=== PATIENT | female | born 1960 | race Caucasian/White ===

== ENCOUNTER 2019-04-10 14:14 | Inpatient (IN) | payer MEDICARE, OTHER ==
[~2019-04-10] VITALS: Ht 160 cm; Wt 66.6 kg
[2019-04-10 16:03] LABS: CALCIUM 8.3 mg/dL (8.5-10.1); GFR 57.4; POTASSIUM 3.9 mmol/L (3.5-5.1)
[2019-04-10 16:04] LABS: BASO % 1 % (0-3); EOS # 0.2 x10^3/uL (0.0-0.7); EOS % 4 % (0-3); HEMATOCRIT 43.3 % (36.0-47.0); HEMOGLOBIN 14.5 g/dL (12.0-15.5); LYMPH # 1.8 x10^3/uL (1.0-4.8); LYMPH % 36 % (24-48); MEAN CORPUSCULAR HEMOGLOBIN 32 pg (25-35); MEAN CORPUSCULAR HGB CONC 34 g/dL (31-37); MEAN CORPUSCULAR VOLUME 96 fL (79-100); MONO # 0.4 x10^3/uL (0.0-1.1); MONO % 9 % (0-9); NEUT # 2.6 x10^3uL (1.8-7.7); NEUT % 51 % (31-73); PLATELET COUNT 181 x10^3/uL (140-400); RED BLOOD COUNT 4.51 x10^6/uL (3.50-5.40); RED CELL DISTRIBUTION WIDTH 12.8 % (11.5-14.5); WHITE BLOOD COUNT 5.1 x10^3/uL (4.0-11.0)
[2019-04-10 16:06] LABS: ALBUMIN 3.2 g/dL (3.4-5.0); ALBUMIN/GLOBULIN RATIO 1.1 (1.0-1.7); MAGNESIUM 2.2 mg/dL (1.8-2.4); TOTAL BILIRUBIN 0.3 mg/dL (0.2-1.0)
--- NOTE | 2019-04-10 16:08 | EKG ---
[address] [address] Test Date: 2019-04-10 Test Time: 14:30:16 Pat Name: QIANA CUNNINGHAM Department: Room: Gender: F Academic Services Coordinator: : 1960 Requested By: PETE SONG Order Number: [id number] Reading MD: Measurements Intervals [place] Rate: 86 P: 40 CA: 158 QRS: 4 QRSD: 78 T: 52 QT: 382 QTc: 460 Interpretive Statements SINUS RHYTHM NORMAL ECG RI6.01 No previous ECG available for comparison
[2019-04-10] MEDS ORDERED: LORazepam 1 MG TABLET PO ONE (16:30)
[2019-04-10 16:54] LABS: BILIRUBIN,URINE NEG (NEG); CLARITY,URINE CLEAR; COLOR,URINE YELLOW; GLUCOSE,URINE NEG (NEG); NITRITE,URINE NEG (NEG)
[2019-04-10 16:55] LABS: BACTERIA,URINE FEW /HPF (0-FEW)
[2019-04-10] MEDS ORDERED: IBUP400T18 PO (16:57)
[2019-04-10] MEDS ORDERED: BENZ0.5T32 PO (16:57)
[2019-04-10] MEDS ORDERED: ESCITALOPRAM OX20 MG PO (16:57)
[2019-04-10] MEDS ORDERED: DEXT1CAP PO (16:57)
[2019-04-10] MEDS ORDERED: DICL100G28 TP (16:57)
[2019-04-10] MEDS ORDERED: TRAM50TA PO ×2 (16:57)
[2019-04-10] MEDS ORDERED: ACET500T68 PO (16:57)
[2019-04-10] MEDS ORDERED: LOPE2TAB27 PO (16:57)
[2019-04-10] MEDS ORDERED: DIVA500T2 PO (16:57)
[2019-04-10] MEDS ORDERED: FURO20TA3 PO (16:57)
[2019-04-10] MEDS ORDERED: POLY15DR27 EACHEYE (16:57)
[2019-04-10] MEDS ORDERED: GABA-586 PO (16:57)
[2019-04-10] MEDS ORDERED: TROL35.4 TP (16:57)
[2019-04-10] MEDS ORDERED: ASPI1TAB31 PO (16:57)
[2019-04-10] MEDS ORDERED: LEVE500T56 PO (16:57)
[2019-04-10] MEDS ORDERED: POLY17PO5 PO (16:57)
[2019-04-10] MEDS ORDERED: CHOL200027 PO (16:57)
[2019-04-10] MEDS ORDERED: HYDR25TA PO (16:57)
[2019-04-10] MEDS ORDERED: LAMO200T6 PO (16:57)
[2019-04-10] MEDS ORDERED: BACL10TA PO (16:57)
[2019-04-10] MEDS ORDERED: LORA-254 PO ×2 (16:57)
[2019-04-10] MEDS ORDERED: ONDA-84 PO (16:57)
[2019-04-10] MEDS ORDERED: BISA10SU4 RC (16:57)
[2019-04-10] MEDS ORDERED: MELA10TA PO (16:57)
[2019-04-10] MEDS ORDERED: LEVO50TA5 PO (16:57)
[2019-04-10] MEDS ORDERED: OMEG-152 PO (16:57)
--- NOTE | 2019-04-10 17:07 | PHYS DOC ---
Past History Past Medical History: CAD, CVA, GERD, Hypertension, Hypothyroid, Hypotension, Migraines, Other Additional Past Medical Histor: hemiplegia, sleep apnea, MDD, tremor, Past Surgical History: No Surgical History Alcohol Use: None Drug Use: None Adult General Chief Complaint Chief Complaint: MEDICAL CLEARANCE HPI HPI Patient is a 58 year old F who presents with medical screening for geriatric psych admission. We so denies any current symptoms. She has no urinary symptoms. She has no respiratory symptoms. She has no other associated symptoms. Review of Systems Review of Systems Constitutional: Denies fever or chills [] Eyes: Denies change in visual acuity, redness, or eye pain [] HENT: Denies nasal congestion or sore throat [] Respiratory: Denies cough or shortness of breath [] Cardiovascular: No additional information not addressed in HPI [] GI: Denies abdominal pain, nausea, vomiting, bloody stools or diarrhea [] : Denies dysuria or hematuria [] Musculoskeletal: Denies back pain or joint pain [] Integument: Denies rash or skin lesions [] Neurologic: Denies headache, focal weakness or sensory changes [] Endocrine: Denies polyuria or polydipsia [] All other systems were reviewed and found to be within normal limits, except as documented in this note. Family History Family History No pertinent family medical history was reported Current Medications Current Medications Current Medications Medications (Trade) Dose Ordered Sig/Malika Start Time Stop Time Status Last Admin Dose Admin Lorazepam (Ativan) 0.5 mg 1X ONCE 04/10/19 16:30 04/10/19 16:31 DC 04/10/19 16:29 0.5 MG Allergies Allergies Allergies Coded Allergies Type Severity Reaction Last Updated Verified codeine Allergy Unknown 04/10/19 Yes hydrocodone Allergy Unknown 04/10/19 Yes morphine Allergy Unknown 04/10/19 Yes Physical Exam Physical Exam Constitutional: Well developed, well nourished, no acute distress, non-toxic appearance. [] HENT: Normocephalic, atraumatic, Eyes: PERRLA, EOMI, conjunctiva normal, no discharge. [] Neck: Normal range of motion, no tenderness, supple, no stridor. [] Cardiovascular:Heart rate regular rhythm, no murmur [] Lungs & Thorax: Bilateral breath sounds clear to auscultation [] Abdomen: Bowel sounds normal, soft, no tenderness, no masses, no pulsatile masses. [] Skin: Warm, dry, no erythema, no rash. [] Back: No tenderness, no CVA tenderness. [] Extremities: No tenderness, no cyanosis, no clubbing, ROM intact, no edema. [] Neurologic: Alert and oriented to self only. Normal motor function, normal sens ory function, no focal deficits noted. [] Psychologic: Affect normal Current Patient Data Vital Signs Vital Signs Date Time Temp Pulse Resp B/P (MAP) Pulse Ox O2 Delivery O2 Flow Rate FiO2 04/10/19 15:47 78 21 117/78 (91) 94 Room Air 04/10/19 14:27 97.9 Lab Results Laboratory Tests Test 04/10/19 15:34 04/10/19 15:56 White Blood Count 5.1 x10^3/uL (4.0-11.0) Red Blood Count 4.51 x10^6/uL (3.50-5.40) Hemoglobin 14.5 g/dL (12.0-15.5) Hematocrit 43.3 % (36.0-47.0) Mean Corpuscular Volume 96 fL (79-100) Mean Corpuscular Hemoglobin 32 pg (25-35) Mean Corpuscular Hemoglobin Concent 34 g/dL (31-37) Red Cell Distribution Width 12.8 % (11.5-14.5) Platelet Count 181 x10^3/uL (140-400) Neutrophils (%) (Auto) 51 % (31-73) Lymphocytes (%) (Auto) 36 % (24-48) Monocytes (%) (Auto) 9 % (0-9) Eosinophils (%) (Auto) 4 % (0-3) H Basophils (%) (Auto) 1 % (0-3) Neutrophils # (Auto) 2.6 x10^3uL (1.8-7.7) Lymphocytes # (Auto) 1.8 x10^3/uL (1.0-4.8) Monocytes # (Auto) 0.4 x10^3/uL (0.0-1.1) Eosinophils # (Auto) 0.2 x10^3/uL (0.0-0.7) Basophils # (Auto) 0.0 x10^3/uL (0.0-0.2) Sodium Level 145 mmol/L (136-145) Potassium Level 3.9 mmol/L (3.5-5.1) Chloride Level 109 mmol/L (98-107) H Carbon Dioxide Level 27 mmol/L (21-32) Anion Gap 9 (6-14) Blood Urea Nitrogen 22 mg/dL (7-20) H Creatinine 1.0 mg/dL (0.6-1.0) Estimated GFR (Cockcroft-Gault) 57.4 BUN/Creatinine Ratio 22 (6-20) H Glucose Level 105 mg/dL (70-99) H Calcium Level 8.3 mg/dL (8.5-10.1) L Magnesium Level 2.2 mg/dL (1.8-2.4) Total Bilirubin 0.3 mg/dL (0.2-1.0) Aspartate Amino Transferase (AST) 21 U/L (15-37) Alanine Aminotransferase (ALT) 33 U/L (14-59) Alkaline Phosphatase 61 U/L (46-116) Total Protein 6.0 g/dL (6.4-8.2) L Albumin 3.2 g/dL (3.4-5.0) L Albumin/Globulin Ratio 1.1 (1.0-1.7) Urine Collection Type Unknown Urine Color Yellow Urine Clarity Clear Urine pH 7.0 Urine Specific [place] 1.025 Urine Protein Neg (NEG-TRACE) Urine Glucose (UA) Neg mg/dL (NEG) Urine Ketones (Stick) Neg mg/dL (NEG) Urine Blood Neg (NEG) Urine Nitrite Neg (NEG) Urine Bilirubin Neg (NEG) Urine Urobilinogen Dipstick 1.0 mg/dL (0.2 mg/dL) Urine Leukocyte Esterase Neg (NEG) Urine RBC 1-2 /HPF (0-2) Urine WBC 1-4 /HPF (0-4) Urine Squamous Epithelial Cells None /LPF Urine Transitional Epithelial Cells Occ /LPF Urine Bacteria Few /HPF (0-FEW) Urine Mucus Slight /LPF EKG EKG Normal sinus rhythm Radiology/Procedures Radiology/Procedures [] Course & Med Decision Making Course & Med Decision Making Pertinent Labs and Imaging studies reviewed. (See chart for details) [] Dragon Disclaimer Dragon Disclaimer This electronic medical record was generated, in whole or in part, using a voice recognition dictation system. Departure Departure: Impression: Primary Impression: Encounter for medical screening examination Disposition: ADMITTED INPATIENT Condition: STABLE Referrals: VEENA MOURA M[facility], MD (PCP) PETE SONG MD Apr 10, 2019 17:07
[2019-04-10 18:02] VITALS: BP 123/81
[2019-04-10] MEDS ORDERED: BISACODYL 10 MG SUPP.RECT RC PRN (18:15)
[2019-04-10] MEDS ORDERED: POLYVINYL ALCOHOL 1.4% OPHTH SOLUTION 15ML BOTTLE. OU PRN (18:15)
[2019-04-10] MEDS ORDERED: POLYETHYLENE GLYCOL 3350 17 GM PACKET. PO PRN (18:15)
[2019-04-10] MEDS ORDERED: MAG HYDROX/AL HYDROX/SIMETH 30 ML ORAL.SUSP PO PRN (18:30)
[2019-04-10] MEDS ORDERED: METHYL SALICYLATE/MENTHOL TOPICAL OINTMENT 57GM TUBE. TP PRN (18:30)
[2019-04-10] MEDS ORDERED: ACETAMINOPHEN 325 MG TABLET PO PRN (18:30)
[2019-04-10] MEDS ORDERED: TROLAMINE SALICYLATE 10% TOPICAL CREAM 85GM JAR. TP PRN (18:45)
[2019-04-10] MEDS ORDERED: ONDANSETRON ODT 4 MG TAB.RAPDIS PO PRN (18:45)
[2019-04-10] MEDS ORDERED: LOPERAMIDE 2 MG CAPSULE PO PRN (18:45)
--- NOTE | 2019-04-10 20:54 | PDOC ---
Exam Note: Cb Note: Please also refer to the separate dictated note~for this date of service dictated separately.~Patient seen individually. Discussed the patient with Nursing staff reviewed the chart.~Reviewed interim history and current functioning. Reviewed vital signs,~Labs/ Radiology~and current medications noted below. Continue current treatment with the changes noted in the dictated addendum note Assessment: Vital Signs/I&O: Vital Signs Date Time Temp Pulse Resp B/P (MAP) Pulse Ox O2 Delivery O2 Flow Rate FiO2 04/10/19 18:02 97.2 76 18 123/81 (95) 96 Room Air Labs: Laboratory Tests Test 04/10/19 15:34 04/10/19 15:56 White Blood Count 5.1 x10^3/uL (4.0-11.0) Red Blood Count 4.51 x10^6/uL (3.50-5.40) Hemoglobin 14.5 g/dL (12.0-15.5) Hematocrit 43.3 % (36.0-47.0) Mean Corpuscular Volume 96 fL (79-100) Mean Corpuscular Hemoglobin 32 pg (25-35) Mean Corpuscular Hemoglobin Concent 34 g/dL (31-37) Red Cell Distribution Width 12.8 % (11.5-14.5) Platelet Count 181 x10^3/uL (140-400) Neutrophils (%) (Auto) 51 % (31-73) Lymphocytes (%) (Auto) 36 % (24-48) Monocytes (%) (Auto) 9 % (0-9) Eosinophils (%) (Auto) 4 % (0-3) H Basophils (%) (Auto) 1 % (0-3) Neutrophils # (Auto) 2.6 x10^3uL (1.8-7.7) Lymphocytes # (Auto) 1.8 x10^3/uL (1.0-4.8) Monocytes # (Auto) 0.4 x10^3/uL (0.0-1.1) Eosinophils # (Auto) 0.2 x10^3/uL (0.0-0.7) Basophils # (Auto) 0.0 x10^3/uL (0.0-0.2) Sodium Level 145 mmol/L (136-145) Potassium Level 3.9 mmol/L (3.5-5.1) Chloride Level 109 mmol/L (98-107) H Carbon Dioxide Level 27 mmol/L (21-32) Anion Gap 9 (6-14) Blood Urea Nitrogen 22 mg/dL (7-20) H Creatinine 1.0 mg/dL (0.6-1.0) Estimated GFR (Cockcroft-Gault) 57.4 BUN/Creatinine Ratio 22 (6-20) H Glucose Level 105 mg/dL (70-99) H Calcium Level 8.3 mg/dL (8.5-10.1) L Magnesium Level 2.2 mg/dL (1.8-2.4) Total Bilirubin 0.3 mg/dL (0.2-1.0) Aspartate Amino Transferase (AST) 21 U/L (15-37) Alanine Aminotransferase (ALT) 33 U/L (14-59) Alkaline Phosphatase 61 U/L (46-116) Total Protein 6.0 g/dL (6.4-8.2) L Albumin 3.2 g/dL (3.4-5.0) L Albumin/Globulin Ratio 1.1 (1.0-1.7) Urine Collection Type Unknown Urine Color Yellow Urine Clarity Clear Urine pH 7.0 Urine Specific [place] 1.025 Urine Protein Neg (NEG-TRACE) Urine Glucose (UA) Neg mg/dL (NEG) Urine Ketones (Stick) Neg mg/dL (NEG) Urine Blood Neg (NEG) Urine Nitrite Neg (NEG) Urine Bilirubin Neg (NEG) Urine Urobilinogen Dipstick 1.0 mg/dL (0.2 mg/dL) Urine Leukocyte Esterase Neg (NEG) Urine RBC 1-2 /HPF (0-2) Urine WBC 1-4 /HPF (0-4) Urine Squamous Epithelial Cells None /LPF Urine Transitional Epithelial Cells Occ /LPF Urine Bacteria Few /HPF (0-FEW) Urine Mucus Slight /LPF Current Medications: Meds: Current Medications Medications (Trade) Dose Ordered Sig/Malika Route PRN Reason Start Time Stop Time Status Last Admin Dose Admin Lorazepam (Ativan) 0.5 mg 1X ONCE PO 04/10/19 16:30 04/10/19 16:31 DC 04/10/19 16:29 I have reviewed the current psychotropics carefully including drug interactions. Risk benefit ratio favors no change other than as noted in my dictated progress note. Diagnosis: Problems: (1) MDD (major depressive disorder) (2) Anxiety disorder (3) Major depressive disorder, recurrent episode (4) Impulse control disorder (5) Major neurocognitive disorder, due to vascular disease, with behavioral disturbance, mild NORBERTO RICHTER MD Apr 10, 2019 20:54
[2019-04-10] MEDS: traMADol 50 MG TABLET PO SCH (21:19)
[2019-04-10] MEDS: levETIRAcetam 500 MG TABLET PO SCH (21:19)
[2019-04-10] MEDS: MELATONIN 3 MG TABLET PO SCH (21:19)
[2019-04-10] MEDS: BENZTROPINE MESYLATE 0.5 MG TABLET PO SCH (21:19)
[2019-04-10] MEDS: DEXTROMETHORPHAN/QUINIDINE 20/10MG CAPSULE. PO SCH (21:19)
[2019-04-10] MEDS: GABAPENTIN 300 MG CAPSULE. PO SCH (21:19)
[2019-04-10] MEDS: hydrOXYzine HCL 25 MG TABLET PO SCH (21:19)
[2019-04-10] MEDS: DIVALPROEX SODIUM 250 MG TABLET.DR. PO SCH (21:20)
[2019-04-10] MEDS: DICLOFENAC SODIUM 1% TOPICAL GEL 100GM TUBE. TP SCH (21:20)
[2019-04-11 05:00] VITALS: BP 120/75
[2019-04-11] MEDS: DICLOFENAC SODIUM 1% TOPICAL GEL 100GM TUBE. TP SCH ×3 (06:00→21:30)
[2019-04-11] MEDS: traMADol 50 MG TABLET PO PRN ×3 (06:11→15:43)
[2019-04-11 07:11] LABS: VAL ACID 52 mcg/mL (50-100)
[2019-04-11] MEDS: CITALOPRAM 20 MG TABLET. PO SCH (08:45)
[2019-04-11] MEDS: lamoTRIgine 100 MG TABLET. PO SCH (08:45)
[2019-04-11] MEDS: OMEGA-3 FATTY ACIDS/FISH OIL 1,000 MG CAPSULE. PO SCH (08:45)
[2019-04-11] MEDS: DEXTROMETHORPHAN/QUINIDINE 20/10MG CAPSULE. PO SCH ×2 (08:45→21:24)
[2019-04-11] MEDS: CHOLECALCIFEROL (VITAMIN D3) 1,000 UNIT TABLET PO SCH (08:45)
[2019-04-11] MEDS: FUROSEMIDE 20 MG TABLET PO SCH (08:46)
[2019-04-11] MEDS: BENZTROPINE MESYLATE 0.5 MG TABLET PO SCH ×2 (08:46→21:24)
[2019-04-11] MEDS: hydrOXYzine HCL 25 MG TABLET PO SCH ×3 (08:46→21:24)
[2019-04-11] MEDS: LEVOTHYROXINE 50 MCG TABLET PO SCH (08:46)
[2019-04-11] MEDS: GABAPENTIN 300 MG CAPSULE. PO SCH ×3 (08:46→21:24)
[2019-04-11] MEDS: levETIRAcetam 500 MG TABLET PO SCH ×2 (08:46→21:24)
[2019-04-11] MEDS: DIVALPROEX SODIUM 250 MG TABLET.DR. PO SCH ×3 (08:46→21:24)
[2019-04-11] MEDS: LORazepam 0.5 MG TABLET PO SCH (08:47)
[2019-04-11] MEDS: traMADol 50 MG TABLET PO SCH ×2 (08:47→21:24)
[2019-04-11 13:59] LABS: THYROID STIM HORMONE (TSH) 0.781 uIU/mL (0.358-3.740)
[2019-04-11 15:51] VITALS: BP 126/84
[2019-04-11 17:07] LABS: THYROXINE 7.9 ug/dL (4.5-12.0)
--- NOTE | 2019-04-11 17:31 | HP ---
ADMIT DATE: 04/10/2019 ADMISSION HISTORY/EVALUATION This late entry, 04/10/2019, covers the elements not covered in my initial note. I met with the patient evening of 04/10/2019 and previously discussed with Cyndi Sheehan, care coordinator and nursing staff. IDENTIFYING DATA: The patient is a 58-year-old female referred to us from [facility] by Dr. Randle, her primary care physician and psychiatrist, Dr. Hughes, on account of worsening symptoms of depression, having failed the outpatient psychiatric interventions. The patient had been yelling out at the facility, striking out at peers and staff with worsening anxiety, agitation, irritability, suicidal ideation, and wanting to end her life. She was looking for pets and people, restless, constantly moving her wheelchair. She had failed the outpatient psychiatric interventions with Dr. Hughes. CHIEF COMPLAINT: "I live in [place] with my aunt, Graciela, yes, I have been depressed. I get angry." HISTORY OF PRESENT ILLNESS: The patient has a history of CVA and some short-term memory deficits. She has been increasingly depressed, angry, irritable, and labile in her mood. She has had sleep and appetite changes and has a pseudobulbar affect and marked impulse control problems. Agitation and disruptive behaviors are noted above. No clear history of bipolar disorder. PAST PSYCHIATRIC HISTORY: As above. PAST MEDICAL HISTORY: She is status post cerebrovascular accident, left sided hemiplegia and hemiparesis, cerebral infarction, sleep apnea, hypothyroidism, hypernatremia, pseudobulbar affect, Parkinson's disease, tremor, seizure disorder, migraines and history of encephalopathy, hypertension, GERD, somnolence, and fatigue. CODE STATUS: DNR. ALLERGIES: CODEINE, HYDROCODONE, and MORPHINE. DIET: Regular. AMBULATES: Wheelchair, 1-person assist. CURRENT PSYCHOTROPICS: Ativan 0.5 mg q. 8 hours p.r.n., Cogentin 0.5 mg b.i.d., Depakote ER 250 mg t.i.d., Lexapro 20 mg a day, Neurontin 300 mg 3 times a day, hydroxyzine 25 mg t.i.d., Keppra 500 mg b.i.d., lamotrigine 200 mg daily, melatonin 10 mg at bedtime, and Nuedexta 20/10 mg b.i.d. FAMILY HISTORY: Noncontributory. SOCIAL HISTORY: No history of alcohol, drug abuse, physical, sexual, or elder abuse history is noted. She is not known to be a perpetrator. REACTION TO HOSPITALIZATION: The patient accepting of it. ASSETS: Supportive, living at the residential. MENTAL STATUS EXAMINATION: The patient was seen individually evening of 04/10/2019. She is oriented to herself, unaware of the year, and felt the president was president Romulo. She talked about having worked in [employer] in the past. Attention span is short. Language function is intact. Mood is depressed and anxious. The affect is mood congruent, quite distractible, and impulsive. No active suicidal or homicidal ideation. LABORATORY DATA: Reviewed. IMPRESSION: Major depressive disorder, recurrent, severe; anxiety disorder, unspecified; impulse control disorder, unspecified; and major neurocognitive disorder, possibly vascular early with depression and delusions. The rest as above. PLAN: Admit to Ger[facility]iat[facility] Unit at [facility]. I will see the patient individually from a psychiatric standpoint. Medical followup with Dr. Arango. Continue the patient on her current psychotropics. Observe baseline and then adjust as clinically indicated. May consider augmenting the Lexapro with Seroquel additionally as a mood stabilizer. Check a valproic acid level and adjust Depakote to reach therapeutic level. Estimated length of stay is 10-12 days. DISPOSITION: Plans back to residential when stable. NORBERTO RICHTER MD DR: ROCCO/nora JOB#: [id number] / [id number]
--- NOTE | 2019-04-11 20:48 | PDOC ---
Exam Note: Cb Note: Please also refer to the separate dictated note~for this date of service dictated separately.~Patient seen individually. Discussed the patient with Nursing staff reviewed the chart.~Reviewed interim history and current functioning. Reviewed vital signs,~Labs/ Radiology~and current medications noted below. Continue current treatment with the changes noted in the dictated addendum note Assessment: Vital Signs/I&O: Vital Signs Date Time Temp Pulse Resp B/P (MAP) Pulse Ox O2 Delivery O2 Flow Rate FiO2 04/11/19 17:30 16 94 Room Air 04/11/19 15:51 98.8 96 126/84 (98) I & O 04/10/19 04/10/19 04/11/19 15:00 23:00 07:00 Intake Total 80 ml Balance 80 ml Labs: Laboratory Tests Test 04/11/19 06:33 Valproic Acid Level 52 mcg/mL (50-100) Valproic Acid Last Dose Date 04/10/19 Valproic Acid Last Dose Time 2100 Current Medications: Meds: Current Medications Medications (Trade) Dose Ordered Sig/Malika Route PRN Reason Start Time Stop Time Status Last Admin Dose Admin Benztropine Mesylate (Cogentin) 0.5 mg BID PO 04/10/19 21:00 04/11/19 08:46 Dextromethorphan/ Quinidine (Nuedexta 20-10 Mg Capsule) 1 cap BID PO 04/10/19 21:00 04/11/19 08:45 Diclofenac Sodium (Voltaren) 1 rodney Q8HRS TP 04/10/19 22:00 04/10/19 21:20 Furosemide (Lasix) 20 mg DAILY PO 04/11/19 09:00 04/11/19 08:46 Gabapentin (Neurontin) 300 mg TID PO 04/10/19 21:00 04/11/19 14:19 Hydroxyzine HCl (Atarax) 25 mg TID PO 04/10/19 21:00 04/11/19 14:20 Levetiracetam (Keppra) 500 mg BID PO 04/10/19 21:00 04/11/19 08:46 Levothyroxine Sodium (Synthroid) 50 mcg DAILYAC PO 04/11/19 07:30 04/11/19 08:46 Lorazepam (Ativan) 0.5 mg DAILY PO 04/11/19 09:00 04/11/19 08:47 Vitamin D (Vitamin D3) 2,000 unit DAILY PO 04/11/19 09:00 04/11/19 08:45 Divalproex Sodium (Depakote) 250 mg TID PO 04/10/19 21:00 04/11/19 14:20 Citalopram Hydrobromide (CeleXA) 40 mg DAILY PO 04/11/19 09:00 04/11/19 08:45 Lamotrigine (LaMICtal) 200 mg DAILY PO 04/11/19 09:00 04/11/19 08:45 Melatonin (Melatonin) 9 mg QHS PO 04/10/19 21:00 04/10/19 21:19 Fish Oil (Fish Oil) 1,000 mg DAILY PO 04/11/19 09:00 04/11/19 08:45 Tramadol HCl (Ultram) 50 mg BID PO 04/10/19 21:00 04/11/19 08:47 I have reviewed the current psychotropics carefully including drug interactions. Risk benefit ratio favors no change other than as noted in my dictated progress note. Diagnosis: Problems: (1) Encounter for medical screening examination (2) MDD (major depressive disorder) (3) Anxiety disorder (4) Major depressive disorder, recurrent episode (5) Impulse control disorder (6) Major neurocognitive disorder, due to vascular disease, with behavioral disturbance, mild NORBERTO RICHTER MD Apr 11, 2019 20:48
[2019-04-11] MEDS: MELATONIN 3 MG TABLET PO SCH (21:24)
[2019-04-12 00:06] LABS: HEMOGLOBIN A1C 5.3 % (4.8-5.6)
[2019-04-12] MEDS: traMADol 50 MG TABLET PO PRN (01:14)
--- NOTE | 2019-04-12 03:38 | CONS ---
DATE OF CONSULTATION: REASON FOR CONSULTATION: Medical management. HISTORY OF PRESENT ILLNESS: The patient is a 58-year-old female patient, a resident of [facility], who was [facility] on account of yelling out, striking out at peers and staff, increased anxiety, agitation, irritability. She also has suicidal ideation, looking for pets and people, restless and constantly moving her wheelchair, all this in the background of major depressive disorder. PAST MEDICAL HISTORY: Significant for left-sided hemiplegia secondary to right middle cerebral artery territory infarct. She is known to have hypothyroidism, hypernatremia, obstructive sleep apnea, Parkinson's disease, tremor, epilepsy, migraine, encephalopathy, metabolic encephalopathy, hypertension, hypotension, gastroesophageal reflux disease, restlessness, agitation, malaise and fatigue. PAST PSYCHIATRIC HISTORY: Significant for anxiety and major depressive disorder as well as pseudobulbar affect. PAST SURGICAL HISTORY: Unobtainable, but she seemed to have what seemed to be tracheostomy tube placement scar. ALLERGIES: SHE IS ALLERGIC TO CODEINE, HYDROCODONE AND MORPHINE. MEDICATIONS: She is currently on following medications: She is on baclofen 10 mg 3 times a day, omega-3 fatty acid, fish oil 1000 mg daily. She is on Excedrin Migraine 2 tablets every 6 hours, diclofenac sodium 1 gram applied topically every 8 hours, ibuprofen 600 mg every 6 hours. She is on tramadol 50 mg every 6 hours and tramadol 50 mg twice a day scheduled, Tylenol 500 mg every 6 hours, divalproex sodium 250 mg 3 times a day, gabapentin 300 mg 3 times a day. She is on lamotrigine 200 mg once a day, Keppra 500 mg twice a day, escitalopram oxalate 20 mg once a day, lorazepam 0.5 mg every 8 hours. She is also on lorazepam 0.5 mg daily, hydroxyzine 25 mg 3 times a day, benztropine mesylate 0.5 mg twice a day. She is on Nuedexta 20/10 one capsule twice a day, furosemide 20 mg once a day, artificial tears 1 drop to both eyes every 8 hours, loperamide 2 mg every 2 hours, bisacodyl 10 mg rectally as needed, polyethylene glycol 17 grams daily and she is also on ondansetron 4 mg every 6 hours, levothyroxine sodium 50 mcg once a day. She is on trolamine for Aspercreme 10% applied topically every 12 hours, vitamin D3 1000 units p.o. daily, melatonin 10 mg p.o. at bedtime. REVIEW OF SYSTEMS: Unobtainable. FAMILY HISTORY: Unobtainable. SOCIAL HISTORY: She is a resident at [facility]. I could not get any more information from the patient. PHYSICAL EXAMINATION: GENERAL: When I examined her, she was sitting in her wheelchair, in no apparent distress. She was pale. No jaundice, cyanosis or thyromegaly. No jugular venous distention. No limb edema. VITAL SIGNS: Her heart rate was 62, blood pressure was 120/75, temperature 97, respiratory rate was 18 and oxygen saturation was 96%. HEAD, EYES, EARS, NOSE AND THROAT: Showed normocephalic, atraumatic. NECK: Supple. HEART: Showed normal first and second heart sounds. No gallop or murmur. CHEST: Shows central trachea, equal bilateral expansion and air entry, vesicular sounds. No crepitation or rhonchi. ABDOMEN: Distended, soft, nontender. NEUROLOGIC: She is awake, alert, very confused and also has incongruous affect. All her cranial nerves seem to be grossly intact. She has marked muscle wasting of the right temporal muscle. She has fixed flexion contraction of the left upper extremity and extended fixed extension of her left lower extremity. She is mostly bedbound, wheelchair bound. LABORATORY DATA: Her white cell count was 5100, hemoglobin 14.5, hematocrit 43, MCV 96 and platelet count of 181,000. Serum sodium 145, potassium 3.9, chloride 109, bicarbonate 27, anion gap of 9, BUN 22, creatinine 1, estimated GFR was 57 mL per minute. Her glucose 105, calcium was 8.3, magnesium 2.2. Total bilirubin, AST, ALT, alkaline phosphatase were normal. Total protein 6, albumin was 3.2. Her urinalysis was essentially unremarkable and toxic screen showed the valproic acid to be 52 mcg/mL, which is well within therapeutic range. IMPRESSION: In summary, this is a 58-year-old female patient, a resident at [facility], who was admitted on account of yelling out, striking out at peers and staff, increased anxiety, agitation, irritability, suicidal ideation, looking for, pets and people, restless and constantly moving her wheelchair, all this on background of major depressive disorder. Medically, she definitely has what seemed to be right middle cerebral artery territory infarct with left sided hemiplegia with fixed flexion contraction of the left upper extremity and extended contracture of the left lower extremity. She is also known to have hypothyroidism, Parkinson disease, hypertension, gastroesophageal reflux disease. From a medical point of view, the patient seems to be overall stable. All her vital signs are within acceptable range. Her lab work is also all within acceptable range. Her urinalysis was essentially unremarkable. Tox screen showed that her valproic acid is well within therapeutic range. I will obviously follow all the lab works that are still pending at the time of this dictation and make any necessary recommendation. Thank you, Dr. Steele for allowing me to participate in the care of the patient. CHRISTOPHER BARFIELD MD DR: GUY/nora JOB#: [id number] / [id number]
[2019-04-12] MEDS: DICLOFENAC SODIUM 1% TOPICAL GEL 100GM TUBE. TP SCH ×4 (05:40→20:15)
[2019-04-12 06:24] VITALS: BP 102/67
[2019-04-12] MEDS: BENZTROPINE MESYLATE 0.5 MG TABLET PO SCH ×2 (08:13→20:15)
[2019-04-12] MEDS: CITALOPRAM 20 MG TABLET. PO SCH (08:13)
[2019-04-12] MEDS: CHOLECALCIFEROL (VITAMIN D3) 1,000 UNIT TABLET PO SCH (08:13)
[2019-04-12] MEDS: LEVOTHYROXINE 50 MCG TABLET PO SCH (08:14)
[2019-04-12] MEDS: LORazepam 0.5 MG TABLET PO SCH (08:14)
[2019-04-12] MEDS: traMADol 50 MG TABLET PO SCH ×2 (08:14→20:14)
[2019-04-12] MEDS: GABAPENTIN 300 MG CAPSULE. PO SCH ×3 (08:15→20:14)
[2019-04-12] MEDS: lamoTRIgine 100 MG TABLET. PO SCH (08:15)
[2019-04-12] MEDS: DIVALPROEX SODIUM 250 MG TABLET.DR. PO SCH ×3 (08:15→20:15)
[2019-04-12] MEDS: OMEGA-3 FATTY ACIDS/FISH OIL 1,000 MG CAPSULE. PO SCH (08:15)
[2019-04-12] MEDS: DEXTROMETHORPHAN/QUINIDINE 20/10MG CAPSULE. PO SCH ×2 (08:15→20:14)
[2019-04-12] MEDS: FUROSEMIDE 20 MG TABLET PO SCH (08:16)
[2019-04-12] MEDS: levETIRAcetam 500 MG TABLET PO SCH ×2 (08:16→20:15)
[2019-04-12] MEDS: hydrOXYzine HCL 25 MG TABLET PO SCH ×3 (08:16→20:15)
[2019-04-12] MEDS ORDERED: QUEtiapine 25 MG TABLET. PO SCH (09:00)
[2019-04-12] MEDS: BACLOFEN 10 MG TABLET PO PRN (10:08)
[2019-04-12] MEDS: LORazepam 0.5 MG TABLET PO PRN (10:08)
[2019-04-12 16:10] VITALS: BP 130/84
[2019-04-12] MEDS: QUEtiapine 25 MG TABLET. PO SCH (17:33)
--- NOTE | 2019-04-12 19:38 | PN ---
DATE: 04/11/2019 PSYCHIATRIC PROGRESS NOTE This late entry 04/11/2019 covers elements not covered in my initial note. SUBJECTIVE: I met with the patient evening of 04/11/2019. Per LITO Ko, the patient slept 7-1/2 hours previous night. She is compliant with her morning medications, somewhat confused, believes she was in [place] or [place]. She is wanting to call her aunt and somewhat labile in her mood, worse so in the evening, anxious, restless, wandering. REVIEW OF SYSTEMS: Ambulation impaired, in wheelchair. No CV, , pulmonary, eye, ENT system symptoms on review. Reliability varies. MENTAL STATUS EXAM: Oriented to herself, situation at times. Insight, judgment, recent memory is impaired. Language function intact. Attention span short. Mood and affect remains labile, anxious. LABORATORY DATA: Reviewed. IMPRESSION: Major depressive disorder, recurrent with possible psychotic features; seizure disorder; anxiety disorder, unspecified; major neurocognitive disorder, probably vascular with delusion, depression. Rest unchanged. PLAN: Continue Lexapro 20 mg a day, start Seroquel 12.5 mg 9 a.m. and 5:00 p.m. Maintain Cogentin, Depakote, Keppra, gabapentin, Nuedexta, lamotrigine, melatonin, along with Ativan p.r.n. for now. Valproic acid level will be checked and adjusted to reach therapeutic level. Later, I did get the results of the valproic acid level and it is therapeutic at 52. NORBERTO RICHTER MD DR: ROCCO/nora JOB#: [id number] / [id number]
[2019-04-12] MEDS: MELATONIN 3 MG TABLET PO SCH (20:15)
--- NOTE | 2019-04-12 20:59 | PDOC ---
Exam Note: Bc Note: Please also refer to the separate dictated note~for this date of service dictated separately.~Patient seen individually. Discussed the patient with Nursing staff reviewed the chart.~Reviewed interim history and current functioning. Reviewed vital signs,~Labs/ Radiology~and current medications noted below. Continue current treatment with the changes noted in the dictated addendum note Assessment: Vital Signs/I&O: Vital Signs Date Time Temp Pulse Resp B/P (MAP) Pulse Ox O2 Delivery O2 Flow Rate FiO2 04/12/19 20:14 18 Room Air 04/12/19 16:10 98.7 93 130/84 (99) 96 I & O 04/11/19 04/11/19 04/12/19 15:00 23:00 07:00 Intake Total 1140 ml 720 ml Balance 1140 ml 720 ml Current Medications: Meds: Current Medications Medications (Trade) Dose Ordered Sig/Malika Route PRN Reason Start Time Stop Time Status Last Admin Dose Admin Quetiapine Fumarate (SEROquel) 12.5 mg 0900,1700 PO 04/12/19 09:00 04/12/19 11:00 DC 04/12/19 08:16 Quetiapine Fumarate (SEROquel) 25 mg 0900,1700 PO 04/12/19 17:00 04/12/19 17:33 I have reviewed the current psychotropics carefully including drug interactions. Risk benefit ratio favors no change other than as noted in my dictated progress note. Diagnosis: Problems: (1) Encounter for medical screening examination (2) MDD (major depressive disorder) (3) Anxiety disorder (4) Major depressive disorder, recurrent episode (5) Impulse control disorder (6) Major neurocognitive disorder, due to vascular disease, with behavioral disturbance, mild NORBERTO RICHTER MD Apr 12, 2019 20:59
[2019-04-13] MEDS: DICLOFENAC SODIUM 1% TOPICAL GEL 100GM TUBE. TP SCH ×3 (06:00→19:33)
[2019-04-13 06:11] VITALS: BP 103/72
[2019-04-13] MEDS: DIVALPROEX SODIUM 250 MG TABLET.DR. PO SCH ×3 (08:03→19:33)
[2019-04-13] MEDS: QUEtiapine 25 MG TABLET. PO SCH ×2 (08:03→17:43)
[2019-04-13] MEDS: LORazepam 0.5 MG TABLET PO SCH (08:03)
[2019-04-13] MEDS: DEXTROMETHORPHAN/QUINIDINE 20/10MG CAPSULE. PO SCH ×2 (08:04→19:32)
[2019-04-13] MEDS: CITALOPRAM 20 MG TABLET. PO SCH (08:04)
[2019-04-13] MEDS: LEVOTHYROXINE 50 MCG TABLET PO SCH (08:04)
[2019-04-13] MEDS: hydrOXYzine HCL 25 MG TABLET PO SCH ×3 (08:04→19:33)
[2019-04-13] MEDS: CHOLECALCIFEROL (VITAMIN D3) 1,000 UNIT TABLET PO SCH (08:04)
[2019-04-13] MEDS: levETIRAcetam 500 MG TABLET PO SCH ×2 (08:05→19:33)
[2019-04-13] MEDS: lamoTRIgine 100 MG TABLET. PO SCH (08:05)
[2019-04-13] MEDS: GABAPENTIN 300 MG CAPSULE. PO SCH ×3 (08:05→19:33)
[2019-04-13] MEDS: OMEGA-3 FATTY ACIDS/FISH OIL 1,000 MG CAPSULE. PO SCH (08:05)
[2019-04-13] MEDS: BENZTROPINE MESYLATE 0.5 MG TABLET PO SCH ×2 (08:05→19:33)
[2019-04-13] MEDS: FUROSEMIDE 20 MG TABLET PO SCH (08:05)
[2019-04-13] MEDS: traMADol 50 MG TABLET PO SCH ×2 (08:12→19:32)
[2019-04-13] MEDS: BACLOFEN 10 MG TABLET PO PRN (10:24)
[2019-04-13] MEDS: LORazepam 0.5 MG TABLET PO PRN ×2 (10:24→19:32)
--- NOTE | 2019-04-13 11:06 | TX PLAN ---
Interdisciplinary Tx Plan Admission Information Apr 10, 2019 at 17:41 Legal Status (on Admission): Voluntary, DPOA DPOA/Guardian Name: STEPHANIE Sanches Contact Other Contact Name: Anish Contreras Other Contact Verified Code Status: DNR Allergies: Coded Allergies: codeine (Verified Allergy, Unknown, 04/10/19) hydrocodone (Verified Allergy, Unknown, 04/10/19) morphine (Verified Allergy, Unknown, 04/10/19) Estimated Length of Stay: 10 Diagnoses Primary Diagnosis: MDD Reasons for Admission: Aggressive, Agitated, Anxiety/Panic, Suicidal ideation, Combative, Confusion/Disoriented, Poor impulse control Problem in Patient's Words: Per pt., "Well, I guess I threw all kinds of hell." "They didn't know what to do with me so they sent me here." Pt. went on to talk about some man she "really liked" but he is "". Pt. stated she "wouldn't leave him alone". "He's the one who kept getting mad." Pt. cousin shared pt. was "having outburst again", "screaming", "saying things like she was ", "calling out for her mom and dad", and talking about "harming herself". Problems Active Problems: Per pt. intake, pt. was yelling out, striking out at peers and staff, anxious, agitated, irrible, SI searching for pets and poeple who have never been at [facility], restless, and moving in wheelchair constantly. Inactive Problems: Pt. is compliant with medication and assessments. Pt Strengths/Limitations Ability for Howard: Poor Cognitive Functioning/Ability: Poor Communication Skills/Ability: Poor Financial Resources: Poor Insight/Judgement: Poor Intellectual Ability: Fair Physical Health: Poor Social Skills: Poor Stability in Family: Fair Verbal Skills: Poor Discharge Criteria Discharge Criteria: No need for close observ., Adequate arrangements @DC, Improved behavior, Improved mood/thought Preliminary Discharge Plan Preliminary DC Plan: Current Living Arrange. Special Precautions Special Precautions: Agitation/Assault, Suicide Risk Fall Risk: High Initial D/C Plan Pt. will return to her facility once stable. Identified Discharge Needs: Follow up with PCP. Currently Utilized Resources Currently Utilized Resources/P: PCP - Dr. Randle Psychiatrist - Dr. Hughes Identified Problems/Hx/Goals Objectives/Short-Term Goals Short Term Goals: Control abnormal behavior, Dec. Aggression, Dec. Anxiety/Panic, Dec. Outbursts, Medication Stabilization, Monitor Med Effects, No Suicidal/[place]. 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 Education: Pt. stated she graduated from high school. Per pt. cousin, "I believe she has a GED." Community Follow-up Community Provider/Family Inpu: Pt. lucilasin stated, "Well, I'm hoping it is medication related, and we can get her back close to her baseline." Treatment Plan Explained Patient/Director Investor Relations had this treatment plan explained to him/her as indicated by the signature below and has been given the opportunity to ask questions and make suggestions: Date: Patient/Director Investor Relations Signature: Patient/Director Investor Relations Decline: No Additional Comments Pt. cousinCherry, would like to be contacted from treatment team. DESIREE DAVALOS Apr 13, 2019 11:06
[2019-04-13 15:54] VITALS: BP 128/68
[2019-04-13] MEDS: MAGNESIUM HYDROXIDE 2,400 MG/30 ML ORAL.SUSP. PO PRN (17:43)
[2019-04-13] MEDS: MELATONIN 3 MG TABLET PO SCH (19:33)
[2019-04-13] MEDS: ASA/APAP/CAFFEINE 250/250/65MG TABLET. PO PRN (20:38)
--- NOTE | 2019-04-13 20:59 | PDOC ---
Exam Note: Cb Note: Please also refer to the separate dictated note~for this date of service dictated separately.~Patient seen individually. Discussed the patient with Nursing staff reviewed the chart.~Reviewed interim history and current functioning. Reviewed vital signs,~Labs/ Radiology~and current medications noted below. Continue current treatment with the changes noted in the dictated addendum note Assessment: Vital Signs/I&O: Vital Signs Date Time Temp Pulse Resp B/P (MAP) Pulse Ox O2 Delivery O2 Flow Rate FiO2 04/13/19 20:36 97 04/13/19 15:54 97.2 87 20 128/68 (88) 04/13/19 09:57 Room Air I & O 04/12/19 04/12/19 04/13/19 15:00 23:00 07:00 Intake Total 480 ml 200 ml 240 ml Balance 480 ml 200 ml 240 ml Current Medications: I have reviewed the current psychotropics carefully including drug interactions. Risk benefit ratio favors no change other than as noted in my dictated progress note. Diagnosis: Problems: (1) MDD (major depressive disorder) (2) Anxiety disorder (3) Major depressive disorder, recurrent episode (4) Impulse control disorder (5) Major neurocognitive disorder, due to vascular disease, with behavioral disturbance, mild NORBERTO RICHTER MD Apr 13, 2019 20:59
--- NOTE | 2019-04-13 22:47 | PN ---
DATE: 04/12/2019 This late entry 04/12/2019 covers elements not covered in my initial note. SUBJECTIVE: I met with the patient evening of 04/12/2019 and staffed at treatment team meeting with the entire team in the morning. We reviewed the patient's history at length. She was at [facility] in [place], which is a level 2 facility and later the [facility], who is her cousin, transferred her to [facility]. The fact that she was in level 2 was indicative of a primary psychiatric diagnosis, but the [facility] contests this. She has additionally been more confused, believes that she is at [employer], restless, helpless in the evening, slept 5 hours previous night. REVIEW OF SYSTEMS: Ambulation impaired, in wheelchair. No CV, , pulmonary, eye, ENT system symptoms on review. Reliability poor. MENTAL STATUS EXAM: Oriented to herself. Insight, judgment, recent and remote memory, attention, concentration, fund of knowledge poor, consistent with her diagnoses. IMPRESSION: Major depressive disorder with psychotic features versus major neurocognitive disorder, multifactorial; Alzheimer, vascular with delusion; depression. Rest unchanged. PLAN: Increase Seroquel from 12.5 mg b.i.d. to 25 mg b.i.d. Continue Ativan p.r.n., Cogentin 0.5 mg b.i.d., Depakote at current dosage level therapeutic at 52, Lexapro 20 mg a day, Neurontin along with hydroxyzine 25 mg t.i.d., melatonin, Nuedexta. Rest unchanged for now. NORBERTO RICHTER MD DR: ROCCO/nora JOB#: [id number] / [id number]
[2019-04-14] MEDS: LEVOTHYROXINE 50 MCG TABLET PO SCH (05:41)
[2019-04-14 05:51] VITALS: BP 107/73
[2019-04-14] MEDS: levETIRAcetam 500 MG TABLET PO SCH ×2 (08:16→20:03)
[2019-04-14] MEDS: CITALOPRAM 20 MG TABLET. PO SCH (08:16)
[2019-04-14] MEDS: hydrOXYzine HCL 25 MG TABLET PO SCH ×3 (08:16→20:03)
[2019-04-14] MEDS: DIVALPROEX SODIUM 250 MG TABLET.DR. PO SCH ×3 (08:16→20:03)
[2019-04-14] MEDS: BENZTROPINE MESYLATE 0.5 MG TABLET PO SCH ×2 (08:16→20:03)
[2019-04-14] MEDS: OMEGA-3 FATTY ACIDS/FISH OIL 1,000 MG CAPSULE. PO SCH (08:16)
[2019-04-14] MEDS: FUROSEMIDE 20 MG TABLET PO SCH (08:17)
[2019-04-14] MEDS: lamoTRIgine 100 MG TABLET. PO SCH (08:17)
[2019-04-14] MEDS: QUEtiapine 25 MG TABLET. PO SCH ×2 (08:18→17:10)
[2019-04-14] MEDS: DEXTROMETHORPHAN/QUINIDINE 20/10MG CAPSULE. PO SCH ×2 (08:18→20:02)
[2019-04-14] MEDS: LORazepam 0.5 MG TABLET PO SCH (08:18)
[2019-04-14] MEDS: traMADol 50 MG TABLET PO SCH ×2 (08:19→20:03)
[2019-04-14] MEDS: CHOLECALCIFEROL (VITAMIN D3) 1,000 UNIT TABLET PO SCH (08:19)
[2019-04-14] MEDS: GABAPENTIN 300 MG CAPSULE. PO SCH ×3 (08:19→20:03)
[2019-04-14] MEDS: DICLOFENAC SODIUM 1% TOPICAL GEL 100GM TUBE. TP SCH ×3 (10:52→20:03)
[2019-04-14] MEDS: LORazepam 0.5 MG TABLET PO PRN (11:17)
[2019-04-14 15:57] VITALS: BP 131/85
[2019-04-14] MEDS: MELATONIN 3 MG TABLET PO SCH (20:03)
--- NOTE | 2019-04-14 22:29 | PDOC ---
Exam Note: Cb Note: Please also refer to the separate dictated note~for this date of service dictated separately.~Patient seen individually. Discussed the patient with Nursing staff reviewed the chart.~Reviewed interim history and current functioning. Reviewed vital signs,~Labs/ Radiology~and current medications noted below. Continue current treatment with the changes noted in the dictated addendum note Assessment: Vital Signs/I&O: Vital Signs Date Time Temp Pulse Resp B/P (MAP) Pulse Ox O2 Delivery O2 Flow Rate FiO2 04/14/19 21:21 97 04/14/19 15:57 97.4 90 20 131/85 (100) 04/13/19 09:57 Room Air I & O 04/13/19 04/13/19 04/14/19 15:00 23:00 07:00 Intake Total 240 ml 480 ml Balance 240 ml 480 ml Current Medications: Meds: Current Medications Medications (Trade) Dose Ordered Sig/Malika Route PRN Reason Start Time Stop Time Status Last Admin Dose Admin Levothyroxine Sodium (Synthroid) 50 mcg DAILY06 PO 04/14/19 06:00 04/14/19 05:41 Diclofenac Sodium (Voltaren) 1 rodney TID TP 04/14/19 09:00 04/14/19 20:03 I have reviewed the current psychotropics carefully including drug interactions. Risk benefit ratio favors no change other than as noted in my dictated progress note. Diagnosis: Problems: (1) Encounter for medical screening examination (2) MDD (major depressive disorder) (3) Anxiety disorder (4) Major depressive disorder, recurrent episode (5) Impulse control disorder (6) Major neurocognitive disorder, due to vascular disease, with behavioral disturbance, mild NORBERTO RICHTER MD Apr 14, 2019 22:29
[2019-04-15 05:48] VITALS: BP 114/68
[2019-04-15] MEDS: LEVOTHYROXINE 50 MCG TABLET PO SCH (06:38)
[2019-04-15 07:50] LABS: BACTERIA,URINE MOD /HPF (0-FEW); BILIRUBIN,URINE NEG (NEG); CLARITY,URINE HAZY; COLOR,URINE YELLOW; GLUCOSE,URINE NEG (NEG); NITRITE,URINE NEG (NEG); SQUAMOUS EPITHELIAL CELL,UR FEW /LPF
[2019-04-15] MEDS: GABAPENTIN 300 MG CAPSULE. PO SCH ×3 (08:32→20:26)
[2019-04-15] MEDS: FUROSEMIDE 20 MG TABLET PO SCH (08:32)
[2019-04-15] MEDS: lamoTRIgine 100 MG TABLET. PO SCH (08:33)
[2019-04-15] MEDS: OMEGA-3 FATTY ACIDS/FISH OIL 1,000 MG CAPSULE. PO SCH (08:33)
[2019-04-15] MEDS: DIVALPROEX SODIUM 250 MG TABLET.DR. PO SCH ×3 (08:33→20:26)
[2019-04-15] MEDS: DEXTROMETHORPHAN/QUINIDINE 20/10MG CAPSULE. PO SCH ×2 (08:33→20:27)
[2019-04-15] MEDS: QUEtiapine 25 MG TABLET. PO SCH ×3 (08:33→17:27)
[2019-04-15] MEDS: hydrOXYzine HCL 25 MG TABLET PO SCH ×3 (08:34→20:26)
[2019-04-15] MEDS: traMADol 50 MG TABLET PO SCH ×2 (08:34→20:27)
[2019-04-15] MEDS: levETIRAcetam 500 MG TABLET PO SCH ×2 (08:34→20:26)
[2019-04-15] MEDS: CITALOPRAM 20 MG TABLET. PO SCH (08:34)
[2019-04-15] MEDS: CHOLECALCIFEROL (VITAMIN D3) 1,000 UNIT TABLET PO SCH (08:35)
[2019-04-15] MEDS: LORazepam 0.5 MG TABLET PO SCH (08:35)
[2019-04-15] MEDS: BENZTROPINE MESYLATE 0.5 MG TABLET PO SCH ×2 (08:40→20:26)
[2019-04-15] MEDS: DICLOFENAC SODIUM 1% TOPICAL GEL 100GM TUBE. TP SCH ×3 (12:36→20:27)
[2019-04-15 15:47] VITALS: BP 105/62
[2019-04-15] MEDS: ACETAMINOPHEN 500 MG TABLET PO PRN (17:58)
[2019-04-15] MEDS: MELATONIN 3 MG TABLET PO SCH (20:26)
--- NOTE | 2019-04-15 20:48 | PDOC ---
Exam Note: Cb Note: Please also refer to the separate dictated note~for this date of service dictated separately.~Patient seen individually. Discussed the patient with Nursing staff reviewed the chart.~Reviewed interim history and current functioning. Reviewed vital signs,~Labs/ Radiology~and current medications noted below. Continue current treatment with the changes noted in the dictated addendum note Assessment: Vital Signs/I&O: Vital Signs Date Time Temp Pulse Resp B/P (MAP) Pulse Ox O2 Delivery O2 Flow Rate FiO2 04/15/19 20:27 97 04/15/19 15:47 97.4 82 20 105/62 (76) 04/13/19 09:57 Room Air I & O 04/14/19 04/14/19 04/15/19 15:00 23:00 07:00 Intake Total 1020 ml 300 ml Balance 1020 ml 300 ml Labs: Laboratory Tests Test 04/15/19 06:32 Urine Collection Type U cath Urine Color Yellow Urine Clarity Hazy Urine pH 7.0 Urine Specific [place] 1.015 Urine Protein Neg (NEG-TRACE) Urine Glucose (UA) Neg mg/dL (NEG) Urine Ketones (Stick) Neg mg/dL (NEG) Urine Blood Neg (NEG) Urine Nitrite Neg (NEG) Urine Bilirubin Neg (NEG) Urine Urobilinogen Dipstick 1.0 mg/dL (0.2 mg/dL) Urine Leukocyte Esterase Small (NEG) Urine RBC 1-2 /HPF (0-2) Urine WBC 5-10 /HPF (0-4) Urine Squamous Epithelial Cells Few /LPF Urine Bacteria Mod /HPF (0-FEW) Current Medications: Meds: Current Medications Medications (Trade) Dose Ordered Sig/Malika Route PRN Reason Start Time Stop Time Status Last Admin Dose Admin Quetiapine Fumarate (SEROquel) 25 mg TID@0900,1300,1700 PO 04/15/19 09:00 04/15/19 17:27 I have reviewed the current psychotropics carefully including drug interactions. Risk benefit ratio favors no change other than as noted in my dictated progress note. Diagnosis: Problems: (1) MDD (major depressive disorder) (2) Anxiety disorder (3) Major depressive disorder, recurrent episode (4) Impulse control disorder (5) Major neurocognitive disorder, due to vascular disease, with behavioral disturbance, mild NEELAMNORBERTO BRYANT MD Apr 15, 2019 20:48
--- NOTE | 2019-04-16 00:18 | PN ---
DATE: 04/13/2019 PSYCHIATRIC PROGRESS NOTE. This late entry of 04/13/2019 covers the elements not covered in my initial note. SUBJECTIVE: I met with the patient in the evening of 04/13/2019. Per LITO Ko, the patient slept 8 hours previous night. She did well at breakfast time, but then later was somewhat agitated, refused toileting schedule, then did better for a while, then after lunch was again demanding to go to bed and then she "lost it". This was per nursing report. She was yelling, delusional, agitative, loud, labile in her mood. At 2:00 p.m., she received Depakote, hydroxyzine, gabapentin and then was a little calmer. REVIEW OF SYSTEMS: Ambulation impaired, in wheelchair. No CV, , pulmonary, eye, ENT system symptoms on review. Reliability poor. MENTAL STATUS EXAM: Oriented to herself. Insight, judgment, recent and remote memory, attention, concentration, fund of knowledge poor, consistent with her diagnoses. IMPRESSION: Major depressive disorder with psychotic features; major neurocognitive disorder, multifactorial with delusion, depression; impulse control disorder; anxiety disorder, unspecified. PLAN: Continue Depakote at current dosage, level therapeutic. Maintain Celexa, Cogentin, gabapentin, hydroxyzine, Keppra and lamotrigine along with melatonin, Nuedexta, Seroquel. We will consider increasing Seroquel for her ongoing mood lability. Will make further changes as clinically indicated. NORBERTO RICHTER MD DR: ROCCO/nora JOB#: [id number] / [id number]
[2019-04-16 05:59] VITALS: BP 133/91
[2019-04-16] MEDS: LEVOTHYROXINE 50 MCG TABLET PO SCH (06:07)
[2019-04-16] MEDS: DIVALPROEX SODIUM 250 MG TABLET.DR. PO SCH ×3 (08:30→20:08)
[2019-04-16] MEDS: DEXTROMETHORPHAN/QUINIDINE 20/10MG CAPSULE. PO SCH ×2 (08:30→20:08)
[2019-04-16] MEDS: CHOLECALCIFEROL (VITAMIN D3) 1,000 UNIT TABLET PO SCH (08:30)
[2019-04-16] MEDS: OMEGA-3 FATTY ACIDS/FISH OIL 1,000 MG CAPSULE. PO SCH (08:30)
[2019-04-16] MEDS: BENZTROPINE MESYLATE 0.5 MG TABLET PO SCH ×2 (08:30→20:08)
[2019-04-16] MEDS: CITALOPRAM 20 MG TABLET. PO SCH (08:30)
[2019-04-16] MEDS: lamoTRIgine 100 MG TABLET. PO SCH (08:30)
[2019-04-16] MEDS: hydrOXYzine HCL 25 MG TABLET PO SCH ×3 (08:30→20:08)
[2019-04-16] MEDS: QUEtiapine 25 MG TABLET. PO SCH ×3 (08:31→16:34)
[2019-04-16] MEDS: levETIRAcetam 500 MG TABLET PO SCH ×2 (08:31→20:08)
[2019-04-16] MEDS: LORazepam 0.5 MG TABLET PO SCH (08:31)
[2019-04-16] MEDS: FUROSEMIDE 20 MG TABLET PO SCH (08:31)
[2019-04-16] MEDS: DICLOFENAC SODIUM 1% TOPICAL GEL 100GM TUBE. TP SCH ×4 (08:31→20:08)
[2019-04-16] MEDS: traMADol 50 MG TABLET PO SCH ×2 (08:31→20:07)
[2019-04-16] MEDS: GABAPENTIN 300 MG CAPSULE. PO SCH ×3 (09:29→20:08)
[2019-04-16 15:13] VITALS: BP 109/75
[2019-04-16] MEDS: MELATONIN 3 MG TABLET PO SCH (20:08)
--- NOTE | 2019-04-16 21:33 | PDOC ---
Exam Note: Cb Note: Please also refer to the separate dictated note~for this date of service dictated separately.~Patient seen individually. Discussed the patient with Nursing staff reviewed the chart.~Reviewed interim history and current functioning. Reviewed vital signs,~Labs/ Radiology~and current medications noted below. Continue current treatment with the changes noted in the dictated addendum note Assessment: Vital Signs/I&O: Vital Signs Date Time Temp Pulse Resp B/P (MAP) Pulse Ox O2 Delivery O2 Flow Rate FiO2 04/16/19 21:31 99 04/16/19 15:13 98.7 80 18 109/75 (86) 04/13/19 09:57 Room Air I & O 04/15/19 04/15/19 04/16/19 15:00 23:00 07:00 Intake Total 240 ml 800 ml Balance 240 ml 800 ml Current Medications: I have reviewed the current psychotropics carefully including drug interactions. Risk benefit ratio favors no change other than as noted in my dictated progress note. Diagnosis: Problems: (1) MDD (major depressive disorder) (2) Anxiety disorder (3) Major depressive disorder, recurrent episode (4) Impulse control disorder (5) Major neurocognitive disorder, due to vascular disease, with behavioral disturbance, mild NORBERTO RICHTER MD Apr 16, 2019 21:33
--- NOTE | 2019-04-17 00:50 | PN ---
DATE: 04/15/2019 PSYCHIATRIC PROGRESS NOTE This late entry 04/15/2019 covers elements not covered in my initial note. SUBJECTIVE: I met with the patient in the evening. The patient slept 8 hours previous night per LITO Mauricio. She has had some retention of urine and had a straight cath, UA was sent for evaluation and has reflux to culture. She has been agitated intermittently and part of this could be contributed by the UTI, which is probably. At 7:00 p.m., increased agitation was very prominent. REVIEW OF SYSTEMS: Ambulation impaired. No CV, , pulmonary, eye, ENT system symptoms on review. Reliability poor. MENTAL STATUS EXAM: Oriented to herself. Insight, judgment, recent and remote memory, attention, concentration, fund of knowledge poor, consistent with her diagnosis mentioned in my initial note. PLAN: No change from initial note. Check UA for C and S, make further adjustments as indicated. MAN Sen RICHTER MD DR: ROCCO/nora JOB#: [id number] / [id number]
--- NOTE | 2019-04-17 00:52 | PN ---
DATE: 04/14/2019 PSYCHIATRIC PROGRESS NOTE This late entry 04/14/2019 covers elements not covered in my initial note. SUBJECTIVE: I met with the patient evening of 04/14/2019. The patient slept 6 hours previous night per LITO Mauricio. Reportedly, she had a "bad day." She has received several PRNs for her agitation, aggression, mood lability. She was kicking staff. Otherwise, disruptive, labile. REVIEW OF SYSTEMS: Ambulation impaired, in wheelchair. No CV, , pulmonary, eye system symptoms on review. MENTAL STATUS EXAM: Oriented to herself. Insight, judgment, recent and remote memory, attention, concentration, fund of knowledge poor, consistent with her diagnoses. IMPRESSION: Major depressive disorder with psychotic features; major neurocognitive disorder, multifactorial with delusion, depression. Rest unchanged. PLAN: Continue current psychotropics. Seroquel is increased to 25 mg 3 times a day from current twice a day. Maintain Zyprexa p.r.n. Valproic acid level therapeutic at 52. Rest unchanged for now. NORBERTO RICHTER MD DR: ROCCO/nora JOB#: [id number] / [id number]
[2019-04-17 05:33] VITALS: BP 132/92
[2019-04-17] MEDS: MAGNESIUM HYDROXIDE 2,400 MG/30 ML ORAL.SUSP. PO PRN (05:52)
[2019-04-17] MEDS: LEVOTHYROXINE 50 MCG TABLET PO SCH (05:52)
[2019-04-17] MEDS: traMADol 50 MG TABLET PO PRN (06:10)
[2019-04-17 07:08] LABS: BASO % 1 % (0-3); EOS # 0.2 x10^3/uL (0.0-0.7); EOS % 6 % (0-3); HEMATOCRIT 42.8 % (36.0-47.0); HEMOGLOBIN 14.2 g/dL (12.0-15.5); LYMPH # 1.5 x10^3/uL (1.0-4.8); LYMPH % 41 % (24-48); MEAN CORPUSCULAR HEMOGLOBIN 32 pg (25-35); MEAN CORPUSCULAR HGB CONC 33 g/dL (31-37); MEAN CORPUSCULAR VOLUME 96 fL (79-100); MONO # 0.3 x10^3/uL (0.0-1.1); MONO % 8 % (0-9); NEUT # 1.6 x10^3uL (1.8-7.7); NEUT % 45 % (31-73); PLATELET COUNT 159 x10^3/uL (140-400); RED BLOOD COUNT 4.47 x10^6/uL (3.50-5.40); RED CELL DISTRIBUTION WIDTH 13.1 % (11.5-14.5); WHITE BLOOD COUNT 3.6 x10^3/uL (4.0-11.0)
[2019-04-17 07:19] LABS: ALBUMIN 3.1 g/dL (3.4-5.0); ALBUMIN/GLOBULIN RATIO 1.2 (1.0-1.7); CALCIUM 8.8 mg/dL (8.5-10.1); CREATININE 0.9 mg/dL (0.6-1.0); GFR 64.8; TOTAL BILIRUBIN 0.3 mg/dL (0.2-1.0); TOTAL PROTEIN 5.7 g/dL (6.4-8.2)
[2019-04-17] MEDS: ASA/APAP/CAFFEINE 250/250/65MG TABLET. PO PRN ×2 (10:44→20:10)
[2019-04-17] MEDS: DICLOFENAC SODIUM 1% TOPICAL GEL 100GM TUBE. TP SCH ×4 (10:44→20:10)
[2019-04-17] MEDS: GABAPENTIN 300 MG CAPSULE. PO SCH ×3 (10:45→20:08)
[2019-04-17] MEDS: QUEtiapine 25 MG TABLET. PO SCH ×3 (10:45→17:39)
[2019-04-17] MEDS: lamoTRIgine 100 MG TABLET. PO SCH (10:45)
[2019-04-17] MEDS: CITALOPRAM 20 MG TABLET. PO SCH (10:46)
[2019-04-17] MEDS: OMEGA-3 FATTY ACIDS/FISH OIL 1,000 MG CAPSULE. PO SCH (10:46)
[2019-04-17] MEDS: DEXTROMETHORPHAN/QUINIDINE 20/10MG CAPSULE. PO SCH ×2 (10:46→20:08)
[2019-04-17] MEDS: CHOLECALCIFEROL (VITAMIN D3) 1,000 UNIT TABLET PO SCH (10:46)
[2019-04-17] MEDS: hydrOXYzine HCL 25 MG TABLET PO SCH ×3 (10:46→20:08)
[2019-04-17] MEDS: DIVALPROEX SODIUM 250 MG TABLET.DR. PO SCH ×3 (10:46→20:09)
[2019-04-17] MEDS: FUROSEMIDE 20 MG TABLET PO SCH (10:46)
[2019-04-17] MEDS: levETIRAcetam 500 MG TABLET PO SCH ×2 (10:47→20:09)
[2019-04-17] MEDS: LORazepam 0.5 MG TABLET PO SCH (10:47)
[2019-04-17] MEDS: traMADol 50 MG TABLET PO SCH ×2 (10:47→20:08)
[2019-04-17] MEDS: BENZTROPINE MESYLATE 0.5 MG TABLET PO SCH ×2 (10:47→20:09)
[2019-04-17 15:55] VITALS: BP 132/85
[2019-04-17] MEDS: MELATONIN 3 MG TABLET PO SCH (20:08)
--- NOTE | 2019-04-17 21:48 | PDOC ---
Exam Note: Cb Note: Please also refer to the separate dictated note~for this date of service dictated separately.~Patient seen individually. Discussed the patient with Nursing staff reviewed the chart.~Reviewed interim history and current functioning. Reviewed vital signs,~Labs/ Radiology~and current medications noted below. Continue current treatment with the changes noted in the dictated addendum note Assessment: Vital Signs/I&O: Vital Signs Date Time Temp Pulse Resp B/P (MAP) Pulse Ox O2 Delivery O2 Flow Rate FiO2 04/17/19 20:08 95 04/17/19 15:55 98.0 87 16 132/85 (101) 04/17/19 06:10 Room Air I & O 04/16/19 04/16/19 04/17/19 15:00 23:00 07:00 Intake Total 480 ml 440 ml Balance 480 ml 440 ml Labs: Laboratory Tests Test 04/17/19 06:57 White Blood Count 3.6 x10^3/uL (4.0-11.0) L Red Blood Count 4.47 x10^6/uL (3.50-5.40) Hemoglobin 14.2 g/dL (12.0-15.5) Hematocrit 42.8 % (36.0-47.0) Mean Corpuscular Volume 96 fL (79-100) Mean Corpuscular Hemoglobin 32 pg (25-35) Mean Corpuscular Hemoglobin Concent 33 g/dL (31-37) Red Cell Distribution Width 13.1 % (11.5-14.5) Platelet Count 159 x10^3/uL (140-400) Neutrophils (%) (Auto) 45 % (31-73) Lymphocytes (%) (Auto) 41 % (24-48) Monocytes (%) (Auto) 8 % (0-9) Eosinophils (%) (Auto) 6 % (0-3) H Basophils (%) (Auto) 1 % (0-3) Neutrophils # (Auto) 1.6 x10^3uL (1.8-7.7) L Lymphocytes # (Auto) 1.5 x10^3/uL (1.0-4.8) Monocytes # (Auto) 0.3 x10^3/uL (0.0-1.1) Eosinophils # (Auto) 0.2 x10^3/uL (0.0-0.7) Basophils # (Auto) 0.0 x10^3/uL (0.0-0.2) Sodium Level 148 mmol/L (136-145) H Potassium Level 4.0 mmol/L (3.5-5.1) Chloride Level 109 mmol/L (98-107) H Carbon Dioxide Level 30 mmol/L (21-32) Anion Gap 9 (6-14) Blood Urea Nitrogen 12 mg/dL (7-20) Creatinine 0.9 mg/dL (0.6-1.0) Estimated GFR (Cockcroft-Gault) 64.8 BUN/Creatinine Ratio 13 (6-20) Glucose Level 76 mg/dL (70-99) Calcium Level 8.8 mg/dL (8.5-10.1) Total Bilirubin 0.3 mg/dL (0.2-1.0) Aspartate Amino Transferase (AST) 15 U/L (15-37) Alanine Aminotransferase (ALT) 25 U/L (14-59) Alkaline Phosphatase 53 U/L (46-116) Total Protein 5.7 g/dL (6.4-8.2) L Albumin 3.1 g/dL (3.4-5.0) L Albumin/Globulin Ratio 1.2 (1.0-1.7) Current Medications: I have reviewed the current psychotropics carefully including drug interactions. Risk benefit ratio favors no change other than as noted in my dictated progress note. Diagnosis: Problems: (1) MDD (major depressive disorder) (2) Anxiety disorder (3) Major depressive disorder, recurrent episode (4) Impulse control disorder (5) Major neurocognitive disorder, due to vascular disease, with behavioral disturbance, mild NORBERTO RICHTER MD Apr 17, 2019 21:48
--- NOTE | 2019-04-17 22:40 | PN ---
DATE: 04/16/2019 PSYCHIATRIC PROGRESS NOTE This late entry 04/16/2019 covers the elements not covered in my initial note. SUBJECTIVE: I met with the patient in the evening of 04/16/2019. Per LITO Owens, the patient slept 9 hours previous night. She is anxious in the morning, received Zyprexa at 11:45 a.m. Bladder scan was negative. During the day today, she remains somewhat withdrawn. Urine has reflex to culture, result is awaited before we consider antibiotics. REVIEW OF SYSTEMS: Ambulation impaired, in wheelchair. No CV, , pulmonary, eye, ENT system symptoms on review. Reliability is poor. MENTAL STATUS EXAM: Oriented to herself. Insight, judgment, recent memory is impaired, remote is poor. Language function is intact. Mood and affect is withdrawn. No active suicidal or homicidal ideation. LABORATORY DATA: Reviewed. IMPRESSION: Unchanged from initial note. PLAN: No change from initial note. Treat the UTI once culture returns and then decide on further changes with her psychotropics. NORBERTO RICHTER MD DR: ROCCO/nora JOB#: [id number] / [id number]
[2019-04-18] MEDS: LEVOTHYROXINE 50 MCG TABLET PO SCH (05:56)
[2019-04-18 06:31] VITALS: BP 100/67
[2019-04-18] MEDS: OMEGA-3 FATTY ACIDS/FISH OIL 1,000 MG CAPSULE. PO SCH (07:53)
[2019-04-18] MEDS: DEXTROMETHORPHAN/QUINIDINE 20/10MG CAPSULE. PO SCH ×2 (07:53→19:47)
[2019-04-18] MEDS: LORazepam 0.5 MG TABLET PO SCH ×2 (07:53→14:23)
[2019-04-18] MEDS: GABAPENTIN 300 MG CAPSULE. PO SCH ×3 (07:53→19:47)
[2019-04-18] MEDS: hydrOXYzine HCL 25 MG TABLET PO SCH ×3 (07:54→19:47)
[2019-04-18] MEDS: QUEtiapine 25 MG TABLET. PO SCH ×3 (07:54→17:29)
[2019-04-18] MEDS: FUROSEMIDE 20 MG TABLET PO SCH (07:54)
[2019-04-18] MEDS: traMADol 50 MG TABLET PO SCH ×2 (07:54→19:47)
[2019-04-18] MEDS: DIVALPROEX SODIUM 250 MG TABLET.DR. PO SCH ×3 (07:55→19:47)
[2019-04-18] MEDS: levETIRAcetam 500 MG TABLET PO SCH ×2 (07:55→19:46)
[2019-04-18] MEDS: BENZTROPINE MESYLATE 0.5 MG TABLET PO SCH ×2 (07:55→19:46)
[2019-04-18] MEDS: SERTRALINE 50 MG TABLET. PO SCH (07:55)
[2019-04-18] MEDS: CHOLECALCIFEROL (VITAMIN D3) 1,000 UNIT TABLET PO SCH (07:55)
[2019-04-18] MEDS: lamoTRIgine 100 MG TABLET. PO SCH (07:55)
[2019-04-18] MEDS: DICLOFENAC SODIUM 1% TOPICAL GEL 100GM TUBE. TP SCH ×3 (09:38→19:48)
[2019-04-18] MEDS: traMADol 50 MG TABLET PO PRN (13:06)
[2019-04-18] MEDS: BACLOFEN 10 MG TABLET PO PRN (14:23)
[2019-04-18] MEDS: LORazepam 0.5 MG TABLET PO PRN (14:23)
[2019-04-18 15:31] VITALS: BP 137/90
[2019-04-18] MEDS: MELATONIN 3 MG TABLET PO SCH (19:46)
[2019-04-18] MEDS: PHENAZOPYRIDINE 100 MG TABLET. PO SCH (19:46)
[2019-04-18] MEDS: CEFDINIR 300 MG CAPSULE PO SCH (19:47)
--- NOTE | 2019-04-18 21:42 | PDOC ---
Exam Note: Cb Note: Please also refer to the separate dictated note~for this date of service dictated separately.~Patient seen individually. Discussed the patient with Nursing staff reviewed the chart.~Reviewed interim history and current functioning. Reviewed vital signs,~Labs/ Radiology~and current medications noted below. Continue current treatment with the changes noted in the dictated addendum note Assessment: Vital Signs/I&O: Vital Signs Date Time Temp Pulse Resp B/P (MAP) Pulse Ox O2 Delivery O2 Flow Rate FiO2 04/18/19 19:47 99 04/18/19 15:31 98.0 62 20 137/90 (106) 04/18/19 14:30 Room Air I & O 04/17/19 04/17/19 04/18/19 15:00 23:00 07:00 Intake Total 240 ml 360 ml Balance 240 ml 360 ml Current Medications: Meds: Current Medications Medications (Trade) Dose Ordered Sig/Malika Route PRN Reason Start Time Stop Time Status Last Admin Dose Admin Sertraline HCl (Zoloft) 50 mg DAILY PO 04/18/19 09:00 04/18/19 07:55 Phenazopyridine HCl (Pyridium) 100 mg TID PO 04/18/19 21:00 04/20/19 20:59 04/18/19 19:46 Cefdinir (Omnicef) 300 mg BID PO 04/18/19 21:00 04/22/19 21:00 04/18/19 19:47 Quetiapine Fumarate (SEROquel) 37.5 mg TID@0900,1300,1700 PO 04/18/19 17:00 04/18/19 17:29 I have reviewed the current psychotropics carefully including drug interactions. Risk benefit ratio favors no change other than as noted in my dictated progress note. Diagnosis: Problems: (1) MDD (major depressive disorder) (2) Anxiety disorder (3) Major depressive disorder, recurrent episode (4) Impulse control disorder (5) Major neurocognitive disorder, due to vascular disease, with behavioral disturbance, NORBERTO Mancilla MD Apr 18, 2019 21:42
[2019-04-19 05:50] VITALS: BP 99/68
[2019-04-19] MEDS: LEVOTHYROXINE 50 MCG TABLET PO SCH (05:57)
[2019-04-19] MEDS: GABAPENTIN 300 MG CAPSULE. PO SCH ×3 (09:22→19:40)
[2019-04-19] MEDS: BENZTROPINE MESYLATE 0.5 MG TABLET PO SCH ×2 (09:22→19:43)
[2019-04-19] MEDS: traMADol 50 MG TABLET PO SCH ×2 (09:22→19:41)
[2019-04-19] MEDS: PHENAZOPYRIDINE 100 MG TABLET. PO SCH ×3 (09:22→19:40)
[2019-04-19] MEDS: CEFDINIR 300 MG CAPSULE PO SCH ×2 (09:22→19:40)
[2019-04-19] MEDS: CHOLECALCIFEROL (VITAMIN D3) 1,000 UNIT TABLET PO SCH (09:22)
[2019-04-19] MEDS: SERTRALINE 50 MG TABLET. PO SCH (09:22)
[2019-04-19] MEDS: OMEGA-3 FATTY ACIDS/FISH OIL 1,000 MG CAPSULE. PO SCH (09:22)
[2019-04-19] MEDS: DIVALPROEX SODIUM 250 MG TABLET.DR. PO SCH ×3 (09:23→19:43)
[2019-04-19] MEDS: lamoTRIgine 100 MG TABLET. PO SCH (09:23)
[2019-04-19] MEDS: QUEtiapine 25 MG TABLET. PO SCH ×3 (09:23→17:16)
[2019-04-19] MEDS: levETIRAcetam 500 MG TABLET PO SCH ×2 (09:24→19:42)
[2019-04-19] MEDS: DEXTROMETHORPHAN/QUINIDINE 20/10MG CAPSULE. PO SCH ×2 (09:24→19:43)
[2019-04-19] MEDS: hydrOXYzine HCL 25 MG TABLET PO SCH ×3 (09:24→19:42)
[2019-04-19] MEDS: FUROSEMIDE 20 MG TABLET PO SCH (09:25)
[2019-04-19] MEDS: DICLOFENAC SODIUM 1% TOPICAL GEL 100GM TUBE. TP SCH ×3 (09:45→19:43)
[2019-04-19] MEDS: LORazepam 0.5 MG TABLET PO PRN (10:21)
[2019-04-19] MEDS: BACLOFEN 10 MG TABLET PO PRN ×2 (10:33→15:35)
--- NOTE | 2019-04-19 10:42 | RAD ---
EXAM: CT HEAD WITHOUT CONTRAST. HISTORY: Seizure. TECHNIQUE: Computed tomography of the head was performed without intravenous contrast. One or more of the following individualized dose reduction techniques were utilized for this examination: 1. Automated exposure control. 2. Adjustment of the mA and/or kV according to patient size. 3. Use of iterative reconstruction technique. COMPARISON: None. FINDINGS: There are limitations from motion artifact. There are changes of right frontotemporal craniotomy and aneurysm coiling in the proximal right M2 segments. There is right hemispheric encephalomalacia with ex vacuo dilatation of the right lateral ventricle. There is moderate chronic microangiopathic white matter change elsewhere. The visualized paranasal sinuses appear clear. The orbits are unremarkable. The temporal bones are unremarkable. The calvarium reveals no suspicious lesions. IMPRESSION: 1. No acute intracranial findings. 2. Right hemispheric encephalomalacia status post right craniotomy and middle cerebral artery aneurysm coiling. 3. Moderate chronic microangiopathic white matter change elsewhere. Electronically signed by: Ashlee Zee MD (04/19/2019 10:39 AM) [facility]
--- NOTE | 2019-04-19 12:20 | PN ---
DATE: 04/17/2019 PSYCHIATRIC PROGRESS NOTE This late entry, 04/17, covers elements not covered in my initial note. SUBJECTIVE: I met with the patient evening of 04/17. Per LITO Sparks, the patient did well in the morning, but by later in the morning, she was quite labile in her mood. She appeared psychotic, wanting 3 dogs, keeping her eyes closed, slept 6-3/4 hours previous night. UA has reflex to culture and sensitivity. We will await results and then decide. REVIEW OF SYSTEMS: Ambulation impaired, in wheelchair. No CV, , pulmonary, eye, ENT system symptoms on review. Reliability poor. MENTAL STATUS EXAM: Oriented to herself. Insight, judgment, recent memory is impaired. Language function intact. Attention span short. Mood and affect withdrawn, anxious, labile at times. LABORATORY DATA: Reviewed. IMPRESSION: Major depressive disorder with psychotic features, rule out bipolar disorder; depressed with psychotic features, rule out major neurocognitive disorder; multifactorial with delusion; depression; behavioral disturbance. Rest unchanged including seizure disorder, rule out urinary tract infection. PLAN: Continue psychotropics from initial note. Change Celexa 40 mg a day to Zoloft 50 mg a day. Adjust further as clinically indicated. NORBERTO RICHTER MD DR: ROCCO/nora JOB#: [id number] / [id number]
[2019-04-19 15:47] VITALS: BP 106/59
[2019-04-19] MEDS: MELATONIN 3 MG TABLET PO SCH (19:41)
[2019-04-19] MEDS: LACTOBACILLUS RHAMNOSUS GG 1 CAPSULE. PO SCH (19:42)
--- NOTE | 2019-04-19 21:18 | PDOC ---
Exam Note: Cb Note: Please also refer to the separate dictated note~for this date of service dictated separately.~Patient seen individually. Discussed the patient with Nursing staff reviewed the chart.~Reviewed interim history and current functioning. Reviewed vital signs,~Labs/ Radiology~and current medications noted below. Continue current treatment with the changes noted in the dictated addendum note Assessment: Vital Signs/I&O: Vital Signs Date Time Temp Pulse Resp B/P (MAP) Pulse Ox O2 Delivery O2 Flow Rate FiO2 04/19/19 19:41 Room Air 04/19/19 15:47 97.0 85 20 106/59 (75) 93 I & O 04/18/19 04/18/19 04/19/19 15:00 23:00 07:00 Intake Total 320 ml 260 ml Balance 320 ml 260 ml Current Medications: Meds: Current Medications Medications (Trade) Dose Ordered Sig/Malika Route PRN Reason Start Time Stop Time Status Last Admin Dose Admin Lactobacillus Rhamnosus (Culturelle) 1 cap BID PO 04/19/19 21:00 04/19/19 19:42 I have reviewed the current psychotropics carefully including drug interactions. Risk benefit ratio favors no change other than as noted in my dictated progress note. Diagnosis: Problems: (1) Encounter for medical screening examination (2) MDD (major depressive disorder) (3) Anxiety disorder (4) Major depressive disorder, recurrent episode (5) Impulse control disorder (6) Major neurocognitive disorder, due to vascular disease, with behavioral disturbance, mild NORBERTO RICHTER MD Apr 19, 2019 21:18
[2019-04-20] MEDS: LEVOTHYROXINE 50 MCG TABLET PO SCH (06:00)
[2019-04-20 06:13] VITALS: BP 112/72
--- NOTE | 2019-04-20 09:43 | PN ---
DATE: 04/18/2019 PSYCHIATRIC PROGRESS NOTE This late entry 04/18/2019 covers the elements not covered in my initial note. SUBJECTIVE: I met with the patient in the evening of 04/18/2019. Per LITO Sparks, the patient continues to have marked mood lability. She has been yelling, quite disorganized, talking about wanting her dog, received several p.r.n. of Ultram at 12:50, then Ativan later. She has been trying to slide out of her chair, placed in a Broda chair, yelling. REVIEW OF SYSTEMS: Ambulation impaired, in Broda chair. No CV, , pulmonary, eye, ENT system symptoms on review. Reliability poor. MENTAL STATUS EXAM: Oriented to herself. Insight, judgment, recent, and remote memory, attention, concentration, fund of knowledge poor, consistent with her diagnosis mentioned in my initial note. PLAN: Stop the Ativan 0.5 mg daily. Seroquel is 25 mg t.i.d. increased to 37.5 mg t.i.d. Rest unchanged for now. NORBERTO RICHTER MD DR: ROCCO/nora JOB#: [id number] / [id number]
[2019-04-20] MEDS: QUEtiapine 25 MG TABLET. PO SCH ×3 (10:19→17:19)
[2019-04-20] MEDS: CEFDINIR 300 MG CAPSULE PO SCH ×2 (10:19→20:24)
[2019-04-20] MEDS: DEXTROMETHORPHAN/QUINIDINE 20/10MG CAPSULE. PO SCH ×2 (10:19→20:22)
[2019-04-20] MEDS: SERTRALINE 50 MG TABLET. PO SCH (10:20)
[2019-04-20] MEDS: levETIRAcetam 500 MG TABLET PO SCH ×2 (10:20→20:22)
[2019-04-20] MEDS: OMEGA-3 FATTY ACIDS/FISH OIL 1,000 MG CAPSULE. PO SCH (10:20)
[2019-04-20] MEDS: CHOLECALCIFEROL (VITAMIN D3) 1,000 UNIT TABLET PO SCH (10:20)
[2019-04-20] MEDS: lamoTRIgine 100 MG TABLET. PO SCH (10:20)
[2019-04-20] MEDS: hydrOXYzine HCL 25 MG TABLET PO SCH ×3 (10:21→20:24)
[2019-04-20] MEDS: DIVALPROEX SODIUM 250 MG TABLET.DR. PO SCH ×3 (10:21→20:22)
[2019-04-20] MEDS: BENZTROPINE MESYLATE 0.5 MG TABLET PO SCH ×2 (10:21→20:21)
[2019-04-20] MEDS: GABAPENTIN 300 MG CAPSULE. PO SCH ×3 (10:21→20:24)
[2019-04-20] MEDS: FUROSEMIDE 20 MG TABLET PO SCH (10:21)
[2019-04-20] MEDS: LACTOBACILLUS RHAMNOSUS GG 1 CAPSULE. PO SCH ×2 (10:21→20:21)
[2019-04-20] MEDS: PHENAZOPYRIDINE 100 MG TABLET. PO SCH ×2 (10:21→13:59)
[2019-04-20] MEDS: traMADol 50 MG TABLET PO SCH ×2 (10:24→20:23)
[2019-04-20] MEDS: DICLOFENAC SODIUM 1% TOPICAL GEL 100GM TUBE. TP SCH ×3 (10:28→20:24)
--- NOTE | 2019-04-20 13:05 | PN ---
DATE: 04/19/2019 PSYCHIATRIC PROGRESS NOTE This late entry 04/19/2019 covers elements not covered in my initial note. SUBJECTIVE: I met with the patient in the evening and staffed at a treatment team meeting with the entire team in the morning. The patient's cousin Cherry her DPOA was to attend, but was unable to do so. I have reviewed extensive records from [facility] and psychiatric evaluation by Dr. 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 Apparently, she has the mood lability, anxiety, irritability, worsening confusion since then. It is unclear whether she is able to recognize family and we will clarify this with her cousin Cherry. We will also check with Dr. Gutiérrez whether the Keppra could be worsening her irritability and do a CT head if clinically indicated. She was repeatedly making statements to nursing staff "ma'am, ma'am may I have milk." Appetite is 50%, sleeping 8-1/2 hours, remains in a Broda chair for safety since she was putting herself on the floor from the wheelchair. She is on cefdinir for her UTI. At times, she has been kicking at staff, confused, looking for her mother. REVIEW OF SYSTEMS: Ambulation impaired, in Broda chair. No CV, , pulmonary, eye, ENT system symptoms on review. Reliability poor. MENTAL STATUS EXAM: Oriented to herself. Insight, judgment, recent and remote memory, attention, concentration, fund of knowledge poor, consistent with her diagnosis mentioned in my initial note. IMPRESSION: Major depressive disorder with psychotic features; major neurocognitive disorder, multifactorial with depression, delusion. Rest unchanged. PLAN: Continue current psychotropics, check with Dr. Gutiérrez whether Keppra could be substituted by an alternative and seizure medications in case Keppra is worsening agitation. Maintain rest of the psychotropics unchanged for now. MAN Sen RICHTER MD DR: ROCCO/nora JOB#: [id number] / [id number]
[2019-04-20 15:35] VITALS: BP 122/76
[2019-04-20] MEDS: MELATONIN 3 MG TABLET PO SCH (20:23)
--- NOTE | 2019-04-20 21:24 | PDOC ---
Exam Note: Cb Note: Please also refer to the separate dictated note~for this date of service dictated separately.~Patient seen individually. Discussed the patient with Nursing staff reviewed the chart.~Reviewed interim history and current functioning. Reviewed vital signs,~Labs/ Radiology~and current medications noted below. Continue current treatment with the changes noted in the dictated addendum note Assessment: Vital Signs/I&O: Vital Signs Date Time Temp Pulse Resp B/P (MAP) Pulse Ox O2 Delivery O2 Flow Rate FiO2 04/20/19 15:35 98.2 105 16 122/76 (91) 92 04/20/19 12:15 Room Air I & O 04/19/19 04/19/19 04/20/19 15:00 23:00 07:00 Intake Total 600 ml 240 ml 240 ml Balance 600 ml 240 ml 240 ml Current Medications: I have reviewed the current psychotropics carefully including drug interactions. Risk benefit ratio favors no change other than as noted in my dictated progress note. Diagnosis: Problems: (1) Encounter for medical screening examination (2) MDD (major depressive disorder) (3) Anxiety disorder (4) Major depressive disorder, recurrent episode (5) Impulse control disorder (6) Major neurocognitive disorder, due to vascular disease, with behavioral disturbance, mild NORBERTO RICHTER MD Apr 20, 2019 21:24
[2019-04-21] MEDS: LORazepam 0.5 MG TABLET PO PRN ×2 (04:26→12:05)
[2019-04-21 05:12] VITALS: BP 107/70
[2019-04-21] MEDS: LEVOTHYROXINE 50 MCG TABLET PO SCH (05:31)
[2019-04-21] MEDS: hydrOXYzine HCL 25 MG TABLET PO SCH ×4 (05:44→20:09)
[2019-04-21] MEDS: SERTRALINE 50 MG TABLET. PO SCH (08:43)
[2019-04-21] MEDS: BENZTROPINE MESYLATE 0.5 MG TABLET PO SCH ×2 (08:43→20:09)
[2019-04-21] MEDS: DEXTROMETHORPHAN/QUINIDINE 20/10MG CAPSULE. PO SCH ×2 (08:43→20:09)
[2019-04-21] MEDS: OMEGA-3 FATTY ACIDS/FISH OIL 1,000 MG CAPSULE. PO SCH (08:43)
[2019-04-21] MEDS: LACTOBACILLUS RHAMNOSUS GG 1 CAPSULE. PO SCH ×2 (08:43→20:09)
[2019-04-21] MEDS: DIVALPROEX SODIUM 250 MG TABLET.DR. PO SCH ×3 (08:43→20:09)
[2019-04-21] MEDS: lamoTRIgine 100 MG TABLET. PO SCH (08:44)
[2019-04-21] MEDS: FUROSEMIDE 20 MG TABLET PO SCH (08:44)
[2019-04-21] MEDS: QUEtiapine 25 MG TABLET. PO SCH ×3 (08:44→17:27)
[2019-04-21] MEDS: traMADol 50 MG TABLET PO SCH ×2 (08:45→20:10)
[2019-04-21] MEDS: CHOLECALCIFEROL (VITAMIN D3) 1,000 UNIT TABLET PO SCH (08:45)
[2019-04-21] MEDS: levETIRAcetam 500 MG TABLET PO SCH ×2 (08:45→20:10)
[2019-04-21] MEDS: CEFDINIR 300 MG CAPSULE PO SCH ×2 (08:45→20:09)
[2019-04-21] MEDS: GABAPENTIN 300 MG CAPSULE. PO SCH ×3 (08:46→20:10)
[2019-04-21] MEDS: DICLOFENAC SODIUM 1% TOPICAL GEL 100GM TUBE. TP SCH ×3 (09:00→21:00)
[2019-04-21] MEDS: BACLOFEN 10 MG TABLET PO PRN ×2 (11:12→20:10)
[2019-04-21] MEDS: MAGNESIUM HYDROXIDE 2,400 MG/30 ML ORAL.SUSP. PO PRN (13:34)
[2019-04-21 14:59] VITALS: BP 90/60
[2019-04-21] MEDS: MELATONIN 3 MG TABLET PO SCH (20:09)
[2019-04-21] MEDS: traMADol 50 MG TABLET PO PRN (21:42)
--- NOTE | 2019-04-21 23:55 | PN ---
DATE: 04/21/2019 SUBJECTIVE: The patient was seen today, met with the staff, chart reviewed and also covering for Dr. Steele. Staff reports no major behavior problems except for increased anxiety, periods of agitation, disruptive, also hollering at times. The patient is given p.r.n. Ativan over the past 24 hours. The patient apparently also having jerky movements and also significant involuntary movements when she gets anxious. She is complaining of muscle spasms and pain. OBSERVATION: VITAL SIGNS: Temperature 97.6, blood pressure 107/70, pulse 86, respirations 24, O2 sat 97%. GENERAL: She slept about 7 hours last night. Appetite fair. The patient currently not exhibiting any major medical issues except for the spasms, cramping and also pain. MEDICATIONS: The patient's current medications include Seroquel 37.5 mg t.i.d. p.o., Zoloft 50 mg daily, olanzapine 2.5 mg q. 2 hours p.r.n., Lamictal 200 mg daily, melatonin 9 mg at night, Depakote 250 mg t.i.d., Keppra 500 mg b.i.d., gabapentin 300 mg t.i.d. and also on lorazepam 0.5 mg q.8 hours p.r.n. The patient is also on tramadol 50 mg b.i.d., levothyroxine 50 mcg daily. The patient is also on Omnicef 300 mg b.i.d. LABORATORY DATA: The patient's lab reviewed. The patient's triglycerides was 162, BUN 22. The patient's valproic acid level was 52. ASSESSMENT: 1. Major depressive disorder, recurrent, severe. 2. Generalized anxiety disorder. PLAN: Continue with the current treatment plan. LENGTH OF STAY: 5 days. NORI MATHEW MD DR: PINO/nora JOB#: [id number] / [id number]
[2019-04-22 05:04] VITALS: BP 104/64
[2019-04-22] MEDS: BACLOFEN 10 MG TABLET PO PRN ×2 (05:27→21:02)
[2019-04-22] MEDS: LORazepam 0.5 MG TABLET PO PRN ×2 (05:27→21:02)
[2019-04-22] MEDS: LEVOTHYROXINE 50 MCG TABLET PO SCH (05:44)
[2019-04-22] MEDS: DICLOFENAC SODIUM 1% TOPICAL GEL 100GM TUBE. TP SCH ×3 (09:00→19:30)
[2019-04-22] MEDS: hydrOXYzine HCL 25 MG TABLET PO SCH ×3 (09:00→19:32)
[2019-04-22] MEDS: LACTOBACILLUS RHAMNOSUS GG 1 CAPSULE. PO SCH ×2 (09:00→19:33)
[2019-04-22] MEDS: OMEGA-3 FATTY ACIDS/FISH OIL 1,000 MG CAPSULE. PO SCH (09:00)
[2019-04-22] MEDS: CHOLECALCIFEROL (VITAMIN D3) 1,000 UNIT TABLET PO SCH (09:00)
[2019-04-22] MEDS: FUROSEMIDE 20 MG TABLET PO SCH (09:19)
[2019-04-22] MEDS: traMADol 50 MG TABLET PO SCH ×2 (09:19→19:32)
[2019-04-22] MEDS: levETIRAcetam 500 MG TABLET PO SCH ×2 (09:20→19:33)
[2019-04-22] MEDS: QUEtiapine 25 MG TABLET. PO SCH ×3 (09:20→17:00)
[2019-04-22] MEDS: DEXTROMETHORPHAN/QUINIDINE 20/10MG CAPSULE. PO SCH ×2 (09:20→19:32)
[2019-04-22] MEDS: SERTRALINE 50 MG TABLET. PO SCH (09:20)
[2019-04-22] MEDS: CEFDINIR 300 MG CAPSULE PO SCH ×2 (09:20→19:30)
[2019-04-22] MEDS: lamoTRIgine 100 MG TABLET. PO SCH (09:21)
[2019-04-22] MEDS: DIVALPROEX SODIUM 250 MG TABLET.DR. PO SCH ×3 (09:21→19:32)
[2019-04-22] MEDS: BENZTROPINE MESYLATE 0.5 MG TABLET PO SCH ×2 (09:21→19:33)
[2019-04-22] MEDS: GABAPENTIN 300 MG CAPSULE. PO SCH ×3 (09:21→19:33)
--- NOTE | 2019-04-22 11:19 | PN ---
DATE: 04/22/2019 SUBJECTIVE: The patient was seen today, met with the staff, chart reviewed and also covering for Dr. Steele. The patient's behavior includes episodes of confusion, problems with the communications and also able to follow directions. The patient also has episodes of screaming, hollering. OBSERVATION: VITAL SIGNS: Temperature 98.3, blood pressure 104/64, pulse 90, respirations 18 and O2 sat 95%. The patient slept about 7 hours last night. Her appetite is fair. CURRENT MEDICATIONS: Include Seroquel 37.5 mg t.i.d. p.o., Zoloft 50 mg daily, Lamictal 200 mg daily, melatonin 9 mg at night, Depakote 250 mg t.i.d. p.o., Keppra 500 mg b.i.d. and gabapentin 300 mg t.i.d. The patient is also on olanzapine 2.5 mg q. 2 hours p.r.n. and lorazepam 0.5 mg q. 8 hours p.r.n. LABORATORY DATA: The patient's lab reviewed. ASSESSMENT: 1. Major depressive disorder, recurrent, severe. 2. Generalized anxiety disorder. PLAN: To continue with the treatment plan. LENGTH OF STAY: 5 days. NORI MATHEW MD DR: PINO/nora JOB#: [id number] / [id number]
[2019-04-22 15:18] VITALS: BP 112/70
[2019-04-22] MEDS: MELATONIN 3 MG TABLET PO SCH (19:34)
[2019-04-23] MEDS: BACLOFEN 10 MG TABLET PO PRN (05:14)
[2019-04-23] MEDS: LEVOTHYROXINE 50 MCG TABLET PO SCH (05:14)
[2019-04-23 06:38] VITALS: BP 135/83
[2019-04-23] MEDS: IBUPROFEN 600 MG TABLET. PO PRN (07:30)
[2019-04-23] MEDS: lamoTRIgine 100 MG TABLET. PO SCH (08:46)
[2019-04-23] MEDS: DEXTROMETHORPHAN/QUINIDINE 20/10MG CAPSULE. PO SCH ×2 (08:46→20:45)
[2019-04-23] MEDS: levETIRAcetam 500 MG TABLET PO SCH ×2 (08:46→20:45)
[2019-04-23] MEDS: hydrOXYzine HCL 25 MG TABLET PO SCH ×3 (08:46→20:46)
[2019-04-23] MEDS: DIVALPROEX SODIUM 250 MG TABLET.DR. PO SCH ×3 (08:46→20:45)
[2019-04-23] MEDS: FUROSEMIDE 20 MG TABLET PO SCH (08:47)
[2019-04-23] MEDS: traMADol 50 MG TABLET PO SCH ×2 (08:47→20:45)
[2019-04-23] MEDS: GABAPENTIN 300 MG CAPSULE. PO SCH ×3 (08:47→20:45)
[2019-04-23] MEDS: CHOLECALCIFEROL (VITAMIN D3) 1,000 UNIT TABLET PO SCH (08:47)
[2019-04-23] MEDS: OMEGA-3 FATTY ACIDS/FISH OIL 1,000 MG CAPSULE. PO SCH (08:47)
[2019-04-23] MEDS: SERTRALINE 50 MG TABLET. PO SCH (08:47)
[2019-04-23] MEDS: BENZTROPINE MESYLATE 0.5 MG TABLET PO SCH ×2 (08:47→20:46)
[2019-04-23] MEDS: LACTOBACILLUS RHAMNOSUS GG 1 CAPSULE. PO SCH ×2 (08:47→20:45)
[2019-04-23] MEDS: QUEtiapine 25 MG TABLET. PO SCH ×3 (08:48→16:50)
[2019-04-23] MEDS: DICLOFENAC SODIUM 1% TOPICAL GEL 100GM TUBE. TP SCH ×3 (08:48→20:47)
[2019-04-23 15:23] VITALS: BP 143/80
[2019-04-23] MEDS: MELATONIN 3 MG TABLET PO SCH (20:46)
--- NOTE | 2019-04-23 21:18 | PDOC ---
Exam Note: Cb Note: Please also refer to the separate dictated note~for this date of service dictated separately.~Patient seen individually. Discussed the patient with Nursing staff reviewed the chart.~Reviewed interim history and current functioning. Reviewed vital signs,~Labs/ Radiology~and current medications noted below. Continue current treatment with the changes noted in the dictated addendum note Assessment: Vital Signs/I&O: Vital Signs Date Time Temp Pulse Resp B/P (MAP) Pulse Ox O2 Delivery O2 Flow Rate FiO2 04/23/19 20:45 94 04/23/19 15:23 98.0 84 20 143/80 (101) 04/21/19 22:59 Room Air I & O 04/22/19 04/22/19 04/23/19 15:00 23:00 07:00 Intake Total 480 ml 360 ml Balance 480 ml 360 ml Current Medications: I have reviewed the current psychotropics carefully including drug interactions. Risk benefit ratio favors no change other than as noted in my dictated progress note. Diagnosis: Problems: (1) Encounter for medical screening examination (2) MDD (major depressive disorder) (3) Anxiety disorder (4) Major depressive disorder, recurrent episode (5) Impulse control disorder (6) Major neurocognitive disorder, due to vascular disease, with behavioral di sturbance, mild NORBERTO RICHTER MD Apr 23, 2019 21:18
[2019-04-24] MEDS: LEVOTHYROXINE 50 MCG TABLET PO SCH (04:13)
[2019-04-24] MEDS: ASA/APAP/CAFFEINE 250/250/65MG TABLET. PO PRN (04:13)
--- NOTE | 2019-04-24 04:51 | PN ---
DATE: 04/20/2019 PSYCHIATRIC PROGRESS NOTE This late entry 04/20/2019 covers elements not covered in my initial note. SUBJECTIVE: I met with the patient in the evening. The patient slept 7 hours previous night per LITO Ko. Previous evening, she was combative with cares, resistive to with her medications, slept until 10:00 a.m. She is disorganized, somewhat labile in her mood, grandiose, wanting to buy a car and retrieved trying to roll out the Broda chair, but screaming, yelling is less. By the time I met with her in the evening of 04/20/2019, she appeared more coherent, appropriate and this happens for short periods of time. REVIEW OF SYSTEMS: Ambulation impaired. No CV, , pulmonary, eye, ENT system symptoms on review. Reliability poor. MENTAL STATUS EXAM: Oriented to herself. Insight, judgment, recent and remote memory, attention, concentration, fund of knowledge poor, consistent with her diagnosis mentioned in my initial note. PLAN: Continue the patient on her current psychotropics from initial note. Valproic acid level is therapeutic, may need to adjust Seroquel further. Continue rest unchanged for now. NORBERTO RICHTER MD DR: ROCCO/nora JOB#: [id number] / [id number]
[2019-04-24 04:56] VITALS: BP 131/65
[2019-04-24 09:46] LABS: BASO % 0 % (0-3); EOS # 0.2 x10^3/uL (0.0-0.7); EOS % 3 % (0-3); HEMOGLOBIN 14.1 g/dL (12.0-15.5); LYMPH # 1.5 x10^3/uL (1.0-4.8); LYMPH % 26 % (24-48); MEAN CORPUSCULAR HEMOGLOBIN 31 pg (25-35); MEAN CORPUSCULAR HGB CONC 33 g/dL (31-37); MEAN CORPUSCULAR VOLUME 95 fL (79-100); MONO # 0.5 x10^3/uL (0.0-1.1); MONO % 9 % (0-9); NEUT # 3.6 x10^3uL (1.8-7.7); NEUT % 61 % (31-73); PLATELET COUNT 221 x10^3/uL (140-400); RED BLOOD COUNT 4.53 x10^6/uL (3.50-5.40); RED CELL DISTRIBUTION WIDTH 13.1 % (11.5-14.5); WHITE BLOOD COUNT 5.9 x10^3/uL (4.0-11.0)
[2019-04-24 09:59] LABS: ALBUMIN 3.5 g/dL (3.4-5.0); ALBUMIN/GLOBULIN RATIO 1.2 (1.0-1.7); CALCIUM 8.9 mg/dL (8.5-10.1); GFR 57.4; TOTAL BILIRUBIN 0.3 mg/dL (0.2-1.0); TOTAL PROTEIN 6.4 g/dL (6.4-8.2)
[2019-04-24] MEDS: BENZTROPINE MESYLATE 0.5 MG TABLET PO SCH ×2 (10:20→20:01)
[2019-04-24] MEDS: SERTRALINE 50 MG TABLET. PO SCH (10:20)
[2019-04-24] MEDS: traMADol 50 MG TABLET PO SCH ×2 (10:21→20:01)
[2019-04-24] MEDS: hydrOXYzine HCL 25 MG TABLET PO SCH ×3 (10:21→20:02)
[2019-04-24] MEDS: CHOLECALCIFEROL (VITAMIN D3) 1,000 UNIT TABLET PO SCH (10:22)
[2019-04-24] MEDS: LACTOBACILLUS RHAMNOSUS GG 1 CAPSULE. PO SCH ×2 (10:22→20:02)
[2019-04-24] MEDS: FUROSEMIDE 20 MG TABLET PO SCH (10:22)
[2019-04-24] MEDS: lamoTRIgine 100 MG TABLET. PO SCH (10:22)
[2019-04-24] MEDS: levETIRAcetam 500 MG TABLET PO SCH ×2 (10:22→20:02)
[2019-04-24] MEDS: DIVALPROEX SODIUM 250 MG TABLET.DR. PO SCH ×3 (10:22→20:01)
[2019-04-24] MEDS: GABAPENTIN 300 MG CAPSULE. PO SCH ×3 (10:22→20:01)
[2019-04-24] MEDS: DEXTROMETHORPHAN/QUINIDINE 20/10MG CAPSULE. PO SCH ×2 (10:22→20:02)
[2019-04-24] MEDS: OMEGA-3 FATTY ACIDS/FISH OIL 1,000 MG CAPSULE. PO SCH (10:23)
[2019-04-24] MEDS: QUEtiapine 50 MG TABLET. PO SCH ×3 (10:23→17:11)
[2019-04-24] MEDS: DICLOFENAC SODIUM 1% TOPICAL GEL 100GM TUBE. TP SCH ×3 (10:23→20:01)
[2019-04-24] MEDS: IBUPROFEN 600 MG TABLET. PO PRN (15:08)
[2019-04-24 15:39] VITALS: BP 104/68
[2019-04-24] MEDS: MELATONIN 3 MG TABLET PO SCH (20:01)
--- NOTE | 2019-04-24 21:57 | PDOC ---
Exam Note: Cb Note: Please also refer to the separate dictated note~for this date of service dictated separately.~Patient seen individually. Discussed the patient with Nursing staff reviewed the chart.~Reviewed interim history and current functioning. Reviewed vital signs,~Labs/ Radiology~and current medications noted below. Continue current treatment with the changes noted in the dictated addendum note Assessment: Vital Signs/I&O: Vital Signs Date Time Temp Pulse Resp B/P (MAP) Pulse Ox O2 Delivery O2 Flow Rate FiO2 04/24/19 21:13 95 04/24/19 15:39 97.0 75 16 104/68 (80) 04/21/19 22:59 Room Air I & O 04/23/19 04/23/19 04/24/19 15:00 23:00 07:00 Intake Total 360 ml 200 ml Balance 360 ml 200 ml Labs: Laboratory Tests Test 04/24/19 09:25 White Blood Count 5.9 x10^3/uL (4.0-11.0) Red Blood Count 4.53 x10^6/uL (3.50-5.40) Hemoglobin 14.1 g/dL (12.0-15.5) Hematocrit 43.0 % (36.0-47.0) Mean Corpuscular Volume 95 fL (79-100) Mean Corpuscular Hemoglobin 31 pg (25-35) Mean Corpuscular Hemoglobin Concent 33 g/dL (31-37) Red Cell Distribution Width 13.1 % (11.5-14.5) Platelet Count 221 x10^3/uL (140-400) Neutrophils (%) (Auto) 61 % (31-73) Lymphocytes (%) (Auto) 26 % (24-48) Monocytes (%) (Auto) 9 % (0-9) Eosinophils (%) (Auto) 3 % (0-3) Basophils (%) (Auto) 0 % (0-3) Neutrophils # (Auto) 3.6 x10^3uL (1.8-7.7) Lymphocytes # (Auto) 1.5 x10^3/uL (1.0-4.8) Monocytes # (Auto) 0.5 x10^3/uL (0.0-1.1) Eosinophils # (Auto) 0.2 x10^3/uL (0.0-0.7) Basophils # (Auto) 0.0 x10^3/uL (0.0-0.2) Sodium Level 146 mmol/L (136-145) H Potassium Level 4.0 mmol/L (3.5-5.1) Chloride Level 109 mmol/L (98-107) H Carbon Dioxide Level 25 mmol/L (21-32) Anion Gap 12 (6-14) Blood Urea Nitrogen 14 mg/dL (7-20) Creatinine 1.0 mg/dL (0.6-1.0) Estimated GFR (Cockcroft-Gault) 57.4 BUN/Creatinine Ratio 14 (6-20) Glucose Level 76 mg/dL (70-99) Calcium Level 8.9 mg/dL (8.5-10.1) Total Bilirubin 0.3 mg/dL (0.2-1.0) Aspartate Amino Transferase (AST) 82 U/L (15-37) H Alanine Aminotransferase (ALT) 45 U/L (14-59) Alkaline Phosphatase 60 U/L (46-116) Total Protein 6.4 g/dL (6.4-8.2) Albumin 3.5 g/dL (3.4-5.0) Albumin/Globulin Ratio 1.2 (1.0-1.7) Current Medications: Meds: Current Medications Medications (Trade) Dose Ordered Sig/Malika Route PRN Reason Start Time Stop Time Status Last Admin Dose Admin Quetiapine Fumarate (SEROquel) 50 mg 0900,1300,1700 PO 04/24/19 09:00 04/24/19 17:11 I have reviewed the current psychotropics carefully including drug interactions. Risk benefit ratio favors no change other than as noted in my dictated progress note. Diagnosis: Problems: (1) MDD (major depressive disorder) (2) Anxiety disorder (3) Major depressive disorder, recurrent episode (4) Impulse control disorder (5) Major neurocognitive disorder, due to vascular disease, with behavioral disturbance, mild NEELAM,NORBERTO Marquez MD Apr 24, 2019 21:57
--- NOTE | 2019-04-24 22:23 | PN ---
DATE: 04/23/2019 PSYCHIATRIC PROGRESS NOTE This late entry 04/23/2019 covers the elements not covered in my initial note. SUBJECTIVE: I met with the patient in the evening and reviewed information with Dr. Acosta, who covered for me for the last couple of days. The patient slept 7 hours previous night. She has been quite agitated during the day, received several PRNs, last one was Zyprexa at 5:45 p.m. She has been yelling loud, demanding, looking for family. She laid herself on the floor, took her pants off, difficult to redirect. REVIEW OF SYSTEMS: Ambulation impaired, in wheelchair. No CV, , pulmonary, eye, ENT system symptoms on review. Reliability is poor. MENTAL STATUS EXAM: Oriented to herself. Insight, judgment, recent and remote memory, attention, concentration, fund of knowledge poor, consistent with her diagnoses. IMPRESSION: Major depressive disorder with psychotic features; major neurocognitive disorder, multifactorial, early with delusion, depression, behavioral disturbance. Rest unchanged. PLAN: Increase Seroquel from 37.5 mg t.i.d. to 50 mg t.i.d. Maintain rest of the psychotropics unchanged including Depakote, Lamictal and she is on Cogentin, gabapentin, hydroxyzine, scheduled melatonin, Nuedexta. She is also on Zoloft 50 mg a day. Adjust further as clinically indicated. NORBERTO RICHTER MD DR: ROCCO/nora JOB#: [id number] / [id number]
[2019-04-25] MEDS: LORazepam 0.5 MG TABLET PO PRN ×3 (02:14→17:58)
[2019-04-25] MEDS: BACLOFEN 10 MG TABLET PO PRN ×3 (02:14→17:58)
[2019-04-25] MEDS: LEVOTHYROXINE 50 MCG TABLET PO SCH (04:54)
[2019-04-25 06:38] VITALS: BP 109/68
[2019-04-25] MEDS: traMADol 50 MG TABLET PO SCH ×2 (08:33→21:00)
[2019-04-25] MEDS: GABAPENTIN 300 MG CAPSULE. PO SCH ×3 (08:33→20:13)
[2019-04-25] MEDS: LACTOBACILLUS RHAMNOSUS GG 1 CAPSULE. PO SCH ×2 (08:33→20:11)
[2019-04-25] MEDS: OMEGA-3 FATTY ACIDS/FISH OIL 1,000 MG CAPSULE. PO SCH (08:33)
[2019-04-25] MEDS: hydrOXYzine HCL 25 MG TABLET PO SCH ×3 (08:33→20:11)
[2019-04-25] MEDS: DEXTROMETHORPHAN/QUINIDINE 20/10MG CAPSULE. PO SCH ×2 (08:34→20:09)
[2019-04-25] MEDS: lamoTRIgine 100 MG TABLET. PO SCH (08:34)
[2019-04-25] MEDS: SERTRALINE 50 MG TABLET. PO SCH (08:34)
[2019-04-25] MEDS: FUROSEMIDE 20 MG TABLET PO SCH (08:34)
[2019-04-25] MEDS: CHOLECALCIFEROL (VITAMIN D3) 1,000 UNIT TABLET PO SCH (08:34)
[2019-04-25] MEDS: QUEtiapine 50 MG TABLET. PO SCH ×3 (08:35→17:08)
[2019-04-25] MEDS: BENZTROPINE MESYLATE 0.5 MG TABLET PO SCH ×2 (08:35→20:11)
[2019-04-25] MEDS: DIVALPROEX SODIUM 250 MG TABLET.DR. PO SCH ×3 (08:35→20:11)
[2019-04-25] MEDS: levETIRAcetam 500 MG TABLET PO SCH ×2 (08:35→20:11)
[2019-04-25] MEDS: DICLOFENAC SODIUM 1% TOPICAL GEL 100GM TUBE. TP SCH ×3 (09:25→20:12)
[2019-04-25 15:28] VITALS: BP 95/61
[2019-04-25] MEDS: MELATONIN 3 MG TABLET PO SCH (20:10)
--- NOTE | 2019-04-25 20:46 | PN ---
DATE: 04/24/2019 PSYCHIATRIC PROGRESS NOTE. This late entry of 04/24/2019 covers the elements not covered in my initial note. SUBJECTIVE: Per Radha RN, the patient slept 7-1/4 hours previous night. Previous night, she was pleasant, but during the day on 04/24/2019, she has had a very difficult day. She has been using foul language towards staff, had to be in the west hallway to reduce sensory stimuli, yelling out for her mother and father. At lunchtime, she seemed to have had a seizure-like episode and I will defer to Dr. Gutiérrez, Neurology. REVIEW OF SYSTEMS: Ambulation impaired, in wheelchair. No CV, , pulmonary, eye, ENT system symptoms on review. MENTAL STATUS EXAM: Oriented to herself. Insight, judgment, recent and remote memory, attention, concentration, fund of knowledge poor, consistent with her diagnoses. IMPRESSION: Major depressive disorder, recurrent; major neurocognitive disorder, multifactorial with depression, delusions, seizure disorder. Rest unchanged including urinary tract infection. PLAN: Continue current psychotropics. Seroquel has been increased, maintain and seizure meds defer to Dr. Gutiérrez. Continue Zoloft 50 mg a day, Nuedexta 20/10 b.i.d. MAN Sen RICHTER MD DR: ROCCO/nora JOB#: [id number] / [id number]
--- NOTE | 2019-04-25 21:28 | PDOC ---
Exam Note: Cb Note: Please also refer to the separate dictated note~for this date of service dictated separately.~Patient seen individually. Discussed the patient with Nursing staff reviewed the chart.~Reviewed interim history and current functioning. Reviewed vital signs,~Labs/ Radiology~and current medications noted below. Continue current treatment with the changes noted in the dictated addendum note Assessment: Vital Signs/I&O: Vital Signs Date Time Temp Pulse Resp B/P (MAP) Pulse Ox O2 Delivery O2 Flow Rate FiO2 04/25/19 15:28 96.8 81 16 95/61 (72) 95 04/21/19 22:59 Room Air I & O 04/24/19 04/24/19 04/25/19 15:00 23:00 07:00 Intake Total 0 ml 360 ml Balance 0 ml 360 ml Current Medications: I have reviewed the current psychotropics carefully including drug interactions. Risk benefit ratio favors no change other than as noted in my dictated progress note. Diagnosis: Problems: (1) MDD (major depressive disorder) (2) Anxiety disorder (3) Major depressive disorder, recurrent episode (4) Impulse control disorder (5) Major neurocognitive disorder, due to vascular disease, with behavioral disturbance, mild NORBERTO RICHTER MD Apr 25, 2019 21:28
[2019-04-26] MEDS: LEVOTHYROXINE 50 MCG TABLET PO SCH (06:00)
[2019-04-26 08:00] VITALS: BP 102/58
[2019-04-26] MEDS: LACTOBACILLUS RHAMNOSUS GG 1 CAPSULE. PO SCH ×2 (08:39→19:52)
[2019-04-26] MEDS: DEXTROMETHORPHAN/QUINIDINE 20/10MG CAPSULE. PO SCH ×2 (08:39→19:52)
[2019-04-26] MEDS: OMEGA-3 FATTY ACIDS/FISH OIL 1,000 MG CAPSULE. PO SCH (08:39)
[2019-04-26] MEDS: hydrOXYzine HCL 25 MG TABLET PO SCH ×3 (08:39→19:51)
[2019-04-26] MEDS: DICLOFENAC SODIUM 1% TOPICAL GEL 100GM TUBE. TP SCH ×3 (08:39→21:00)
[2019-04-26] MEDS: BENZTROPINE MESYLATE 0.5 MG TABLET PO SCH ×2 (08:40→19:52)
[2019-04-26] MEDS: GABAPENTIN 300 MG CAPSULE. PO SCH ×3 (08:40→19:52)
[2019-04-26] MEDS: DIVALPROEX SODIUM 250 MG TABLET.DR. PO SCH ×3 (08:40→19:52)
[2019-04-26] MEDS: CHOLECALCIFEROL (VITAMIN D3) 1,000 UNIT TABLET PO SCH (08:40)
[2019-04-26] MEDS: SERTRALINE 50 MG TABLET. PO SCH (08:40)
[2019-04-26] MEDS: lamoTRIgine 100 MG TABLET. PO SCH (08:40)
[2019-04-26] MEDS: QUEtiapine 50 MG TABLET. PO SCH ×3 (08:40→16:31)
[2019-04-26] MEDS: traMADol 50 MG TABLET PO SCH ×2 (08:40→19:51)
[2019-04-26] MEDS: levETIRAcetam 500 MG TABLET PO SCH ×2 (08:40→19:52)
[2019-04-26] MEDS: FUROSEMIDE 20 MG TABLET PO SCH (08:41)
[2019-04-26] MEDS: risperiDONE 0.25 MG TABLET. PO SCH ×2 (08:41→16:31)
[2019-04-26] MEDS: BACLOFEN 10 MG TABLET PO PRN ×2 (14:17→19:51)
[2019-04-26 15:59] VITALS: BP 113/69
[2019-04-26] MEDS: LORazepam 0.5 MG TABLET PO PRN (19:52)
[2019-04-26] MEDS: MELATONIN 3 MG TABLET PO SCH (19:53)
--- NOTE | 2019-04-26 21:06 | PN ---
DATE: 04/25/2019 PSYCHIATRIC PROGRESS NOTE This late entry 04/25/2019 covers elements not covered in my initial note. SUBJECTIVE: I met with the patient evening of 04/25/2019. Per LITO Sparks, the patient slept 5-1/4 hours previous night. She has been yelling, agitated, loud, repetitive, delusional, psychotic, calling out for her parents. She received Ativan and baclofen with some improvement. She is looking for her dad. When I questioned her about orientation, she felt the year was 1988. REVIEW OF SYSTEMS: Ambulation impaired, in wheelchair. I met with her in the [facility] where she was placed to reduce stimulation which worsens her agitation. REVIEW OF SYSTEMS: No CV, , pulmonary, eye system symptoms on review. MENTAL STATUS EXAM: The patient is oriented to herself. Insight, judgment, recent and remote memory, attention, concentration, fund of knowledge poor, consistent with her diagnoses. IMPRESSION: Unchanged from initial note. PLAN: Start Risperdal 0.25 mg 9 a.m., 5:00 p.m. and we will gradually taper the Seroquel as we adjust the Risperdal for her marked psychotic symptoms. Continue rest of the psychotropics for now. NORBERTO RICHTER MD DR: ROCCO/nora JOB#: [id number] / [id number]
--- NOTE | 2019-04-26 21:23 | PDOC ---
Exam Note: Cb Note: Please also refer to the separate dictated note~for this date of service dictated separately.~Patient seen individually. Discussed the patient with Nursing staff reviewed the chart.~Reviewed interim history and current functioning. Reviewed vital signs,~Labs/ Radiology~and current medications noted below. Continue current treatment with the changes noted in the dictated addendum note Assessment: Vital Signs/I&O: Vital Signs Date Time Temp Pulse Resp B/P (MAP) Pulse Ox O2 Delivery O2 Flow Rate FiO2 04/26/19 21:11 95 Room Air 04/26/19 15:59 97.5 81 22 113/69 (84) I & O 04/25/19 04/25/19 04/26/19 15:00 23:00 07:00 Intake Total 720 ml 600 ml Balance 720 ml 600 ml Current Medications: Meds: Current Medications Medications (Trade) Dose Ordered Sig/Malika Route PRN Reason Start Time Stop Time Status Last Admin Dose Admin Risperidone (RisperDAL) 0.25 mg BID@0900,1700 PO 04/26/19 09:00 04/26/19 16:31 I have reviewed the current psychotropics carefully including drug interactions. Risk benefit ratio favors no change other than as noted in my dictated progress note. Diagnosis: Problems: (1) Encounter for medical screening examination (2) MDD (major depressive disorder) (3) Anxiety disorder (4) Major depressive disorder, recurrent episode (5) Impulse control disorder (6) Major neurocognitive disorder, due to vascular disease, with behavioral disturbance, mild NEELAM,NORBERTO Marquez MD Apr 26, 2019 21:23
[2019-04-27 05:54] VITALS: BP 123/62
[2019-04-27] MEDS: LEVOTHYROXINE 50 MCG TABLET PO SCH (06:00)
[2019-04-27 06:33] LABS: COLOR,URINE YELLOW
[2019-04-27 06:34] LABS: BACTERIA,URINE MANY /HPF (0-FEW); BILIRUBIN,URINE NEG (NEG); CLARITY,URINE CLOUDY; GLUCOSE,URINE NEG (NEG); NITRITE,URINE POS (NEG); SQUAMOUS EPITHELIAL CELL,UR FEW /LPF; UROBILINOGEN,URINE 0.2 mg/dL (0.2 mg/dL); WBC,URINE >40 /HPF (0-4)
[2019-04-27] MEDS: risperiDONE 0.25 MG TABLET. PO SCH ×2 (08:27→16:56)
[2019-04-27] MEDS: levETIRAcetam 500 MG TABLET PO SCH ×2 (08:27→20:14)
[2019-04-27] MEDS: DICLOFENAC SODIUM 1% TOPICAL GEL 100GM TUBE. TP SCH ×3 (08:27→20:20)
[2019-04-27] MEDS: DIVALPROEX SODIUM 250 MG TABLET.DR. PO SCH ×3 (08:28→20:14)
[2019-04-27] MEDS: DEXTROMETHORPHAN/QUINIDINE 20/10MG CAPSULE. PO SCH ×2 (08:28→20:15)
[2019-04-27] MEDS: CHOLECALCIFEROL (VITAMIN D3) 1,000 UNIT TABLET PO SCH (08:28)
[2019-04-27] MEDS: FUROSEMIDE 20 MG TABLET PO SCH (08:28)
[2019-04-27] MEDS: lamoTRIgine 100 MG TABLET. PO SCH (08:28)
[2019-04-27] MEDS: GABAPENTIN 300 MG CAPSULE. PO SCH ×3 (08:28→20:15)
[2019-04-27] MEDS: BENZTROPINE MESYLATE 0.5 MG TABLET PO SCH ×2 (08:29→20:15)
[2019-04-27] MEDS: traMADol 50 MG TABLET PO SCH ×2 (08:29→20:15)
[2019-04-27] MEDS: OMEGA-3 FATTY ACIDS/FISH OIL 1,000 MG CAPSULE. PO SCH (08:29)
[2019-04-27] MEDS: hydrOXYzine HCL 25 MG TABLET PO SCH ×3 (08:29→20:15)
[2019-04-27] MEDS: SERTRALINE 50 MG TABLET. PO SCH (08:29)
[2019-04-27] MEDS: QUEtiapine 50 MG TABLET. PO SCH ×3 (08:29→16:56)
[2019-04-27] MEDS: LACTOBACILLUS RHAMNOSUS GG 1 CAPSULE. PO SCH ×2 (08:29→20:14)
--- NOTE | 2019-04-27 09:04 | PN ---
DATE: 04/26/2019 PSYCHIATRIC PROGRESS NOTE This late entry 04/26/2019 covers elements not covered in my initial note. SUBJECTIVE: I met with the patient in the evening and staffed at a treatment team meeting with the entire team in the morning. The patient's cousin kaylynn BROWN was to attend, but unable to connect with her. Appetite is 50%, slept 8-1/2 hours. She remains quite delusional, anxious, restless, screaming for her family and parents at 4:00 a.m. REVIEW OF SYSTEMS: Ambulation impaired, in Broda chair. No CV, , pulmonary, eye system symptoms on review. Reliability poor. MENTAL STATUS EXAM: Oriented to herself. Insight, judgment, recent and remote memory, attention, concentration, fund of knowledge poor, consistent with her diagnoses. IMPRESSION: Major depressive disorder with psychotic features, rule out bipolar disorder, depressed with psychotic features, status post urinary tract infection, seizure disorder. Rest unchanged. PLAN: Continue psychotropics from initial note. Valproic acid level therapeutic on Depakote ER 750 mg a day. She remains on lamotrigine, Keppra, hydroxyzine, gabapentin, Cogentin, Zoloft 50 mg a day, Risperdal 0.25 mg b.i.d., Seroquel 50 mg t.i.d. and as we adjust the Risperdal, we may taper off the Seroquel. Maintain Nuedexta 20/10 b.i.d. NORBERTO RICHTER MD DR: ROCCO/nora JOB#: [id number] / [id number]
[2019-04-27 15:33] VITALS: BP 119/81
[2019-04-27] MEDS: MELATONIN 3 MG TABLET PO SCH (20:14)
--- NOTE | 2019-04-27 21:25 | PDOC ---
Exam Note: Cb Note: Please also refer to the separate dictated note~for this date of service dictated separately.~Patient seen individually. Discussed the patient with Nursing staff reviewed the chart.~Reviewed interim history and current functioning. Reviewed vital signs,~Labs/ Radiology~and current medications noted below. Continue current treatment with the changes noted in the dictated addendum note Assessment: Vital Signs/I&O: Vital Signs Date Time Temp Pulse Resp B/P (MAP) Pulse Ox O2 Delivery O2 Flow Rate FiO2 04/27/19 21:19 18 96 Room Air 04/27/19 15:33 97.6 84 119/81 (94) I & O 04/26/19 04/26/19 04/27/19 15:00 23:00 07:00 Intake Total 480 ml 480 ml Balance 480 ml 480 ml Labs: Laboratory Tests Test 04/27/19 06:00 Urine Collection Type Unknown Urine Color Yellow Urine Clarity Cloudy Urine pH 7.0 Urine Specific [place] 1.020 Urine Protein Neg (NEG-TRACE) Urine Glucose (UA) Neg mg/dL (NEG) Urine Ketones (Stick) Neg mg/dL (NEG) Urine Blood Small (NEG) Urine Nitrite Pos (NEG) Urine Bilirubin Neg (NEG) Urine Urobilinogen Dipstick 0.2 mg/dL (0.2 mg/dL) Urine Leukocyte Esterase Large (NEG) Urine RBC 1-2 /HPF (0-2) Urine WBC >40 /HPF (0-4) Urine Squamous Epithelial Cells Few /LPF Urine Bacteria Many /HPF (0-FEW) Current Medications: I have reviewed the current psychotropics carefully including drug interactions. Risk benefit ratio favors no change other than as noted in my dictated progress note. Diagnosis: Problems: (1) Encounter for medical screening examination (2) MDD (major depressive disorder) (3) Anxiety disorder (4) Major depressive disorder, recurrent episode (5) Impulse control disorder (6) Major neurocognitive disorder, due to vascular disease, with behavioral disturbance, mild NORBERTO RICHTER MD Apr 27, 2019 21:25
[2019-04-28] MEDS: ACETAMINOPHEN 500 MG TABLET PO PRN (05:47)
[2019-04-28] MEDS: LEVOTHYROXINE 50 MCG TABLET PO SCH (05:47)
[2019-04-28 05:52] VITALS: BP 96/60
[2019-04-28] MEDS: DIVALPROEX SODIUM 250 MG TABLET.DR. PO SCH ×3 (08:28→20:03)
[2019-04-28] MEDS: lamoTRIgine 100 MG TABLET. PO SCH (08:28)
[2019-04-28] MEDS: SERTRALINE 50 MG TABLET. PO SCH (08:28)
[2019-04-28] MEDS: traMADol 50 MG TABLET PO SCH ×2 (08:28→20:03)
[2019-04-28] MEDS: FUROSEMIDE 20 MG TABLET PO SCH (08:29)
[2019-04-28] MEDS: OMEGA-3 FATTY ACIDS/FISH OIL 1,000 MG CAPSULE. PO SCH (08:29)
[2019-04-28] MEDS: levETIRAcetam 500 MG TABLET PO SCH ×2 (08:29→20:04)
[2019-04-28] MEDS: LACTOBACILLUS RHAMNOSUS GG 1 CAPSULE. PO SCH ×2 (08:29→20:04)
[2019-04-28] MEDS: hydrOXYzine HCL 25 MG TABLET PO SCH ×3 (08:29→20:04)
[2019-04-28] MEDS: DEXTROMETHORPHAN/QUINIDINE 20/10MG CAPSULE. PO SCH ×2 (08:29→20:04)
[2019-04-28] MEDS: CHOLECALCIFEROL (VITAMIN D3) 1,000 UNIT TABLET PO SCH (08:29)
[2019-04-28] MEDS: GABAPENTIN 300 MG CAPSULE. PO SCH ×3 (08:29→20:03)
[2019-04-28] MEDS: BENZTROPINE MESYLATE 0.5 MG TABLET PO SCH ×2 (08:29→20:07)
[2019-04-28] MEDS: QUEtiapine 50 MG TABLET. PO SCH ×3 (08:29→17:00)
[2019-04-28] MEDS: risperiDONE 0.25 MG TABLET. PO SCH ×2 (08:29→17:00)
[2019-04-28] MEDS: DICLOFENAC SODIUM 1% TOPICAL GEL 100GM TUBE. TP SCH ×3 (08:30→20:08)
[2019-04-28 15:40] VITALS: BP 102/65
[2019-04-28] MEDS: MELATONIN 3 MG TABLET PO SCH (20:03)
[2019-04-29] MEDS: ACETAMINOPHEN 500 MG TABLET PO PRN (05:22)
[2019-04-29] MEDS: LEVOTHYROXINE 50 MCG TABLET PO SCH (05:22)
[2019-04-29 05:58] VITALS: BP 126/71
[2019-04-29] MEDS: LACTOBACILLUS RHAMNOSUS GG 1 CAPSULE. PO SCH ×2 (08:14→20:40)
[2019-04-29] MEDS: OMEGA-3 FATTY ACIDS/FISH OIL 1,000 MG CAPSULE. PO SCH (08:14)
[2019-04-29] MEDS: BENZTROPINE MESYLATE 0.5 MG TABLET PO SCH ×2 (08:15→20:41)
[2019-04-29] MEDS: hydrOXYzine HCL 25 MG TABLET PO SCH ×3 (08:15→20:41)
[2019-04-29] MEDS: CHOLECALCIFEROL (VITAMIN D3) 1,000 UNIT TABLET PO SCH (08:15)
[2019-04-29] MEDS: DEXTROMETHORPHAN/QUINIDINE 20/10MG CAPSULE. PO SCH ×2 (08:15→20:41)
[2019-04-29] MEDS: risperiDONE 0.25 MG TABLET. PO SCH ×2 (08:15→17:00)
[2019-04-29] MEDS: SERTRALINE 50 MG TABLET. PO SCH (08:15)
[2019-04-29] MEDS: FUROSEMIDE 20 MG TABLET PO SCH (08:15)
[2019-04-29] MEDS: GABAPENTIN 300 MG CAPSULE. PO SCH ×3 (08:15→20:40)
[2019-04-29] MEDS: DIVALPROEX SODIUM 250 MG TABLET.DR. PO SCH ×3 (08:15→20:41)
[2019-04-29] MEDS: levETIRAcetam 500 MG TABLET PO SCH ×2 (08:15→20:41)
[2019-04-29] MEDS: traMADol 50 MG TABLET PO SCH ×2 (08:16→20:40)
[2019-04-29] MEDS: DICLOFENAC SODIUM 1% TOPICAL GEL 100GM TUBE. TP SCH ×3 (08:16→20:42)
[2019-04-29] MEDS: lamoTRIgine 100 MG TABLET. PO SCH (08:16)
[2019-04-29] MEDS: QUEtiapine 50 MG TABLET. PO SCH ×3 (08:16→17:00)
[2019-04-29 15:59] VITALS: BP 112/75
[2019-04-29] MEDS: MELATONIN 3 MG TABLET PO SCH (20:40)
--- NOTE | 2019-04-29 21:39 | PDOC ---
Exam Note: Cb Note: This is a late entry for DOS 04/28/2019. VS - Last 72 Hours, by Label Date Time Temp Pulse Resp B/P (MAP) Pulse Ox O2 Delivery O2 Flow Rate FiO2 04/29/19 20:40 97 04/29/19 15:59 97.2 84 18 112/75 (87) 97 04/29/19 05:58 97.1 76 18 126/71 (89) 99 Room Air 04/28/19 21:07 98 04/28/19 20:03 16 98 Room Air 04/28/19 15:40 97.6 74 20 102/65 (77) 98 04/28/19 05:52 97.0 78 16 96/60 (72) 96 04/27/19 21:19 18 96 Room Air 04/27/19 20:15 16 96 Room Air 04/27/19 15:33 97.6 84 16 119/81 (94) 96 04/27/19 05:54 97.3 80 16 123/62 (82) 98 Please also refer to the separate dictated note~for this date of service dictated separately.~Patient seen individually. Discussed the patient with Nursing staff reviewed the chart.~Reviewed interim history and current functioning. Reviewed vital signs,~Labs/ Radiology~and current medications noted below. Continue current treatment with the changes noted in the dictated addendum note Assessment: Vital Signs/I&O: Vital Signs Date Time Temp Pulse Resp B/P (MAP) Pulse Ox O2 Delivery O2 Flow Rate FiO2 04/29/19 20:40 97 04/29/19 15:59 97.2 84 18 112/75 (87) 04/29/19 05:58 Room Air I & O 04/28/19 04/28/19 04/29/19 15:00 23:00 07:00 Intake Total 840 ml 720 ml Balance 840 ml 720 ml Current Medications: I have reviewed the current psychotropics carefully including drug interactions. Risk benefit ratio favors no change other than as noted in my dictated progress note. Diagnosis: Problems: (1) Encounter for medical screening examination (2) MDD (major depressive disorder) (3) Anxiety disorder (4) Major depressive disorder, recurrent episode (5) Impulse control disorder (6) Major neurocognitive disorder, due to vascular disease, with behavioral disturbance, mild NORBERTO RICHTER MD Apr 29, 2019 21:39
--- NOTE | 2019-04-29 21:53 | PDOC ---
Exam Note: Cb Note: Please also refer to the separate dictated note~for this date of service dictated separately.~Patient seen individually. Discussed the patient with Nursing staff reviewed the chart.~Reviewed interim history and current functioning. Reviewed vital signs,~Labs/ Radiology~and current medications noted below. Continue current treatment with the changes noted in the dictated addendum note Assessment: Vital Signs/I&O: Vital Signs Date Time Temp Pulse Resp B/P (MAP) Pulse Ox O2 Delivery O2 Flow Rate FiO2 04/29/19 20:40 97 04/29/19 15:59 97.2 84 18 112/75 (87) 04/29/19 05:58 Room Air I & O 04/28/19 04/28/19 04/29/19 15:00 23:00 07:00 Intake Total 840 ml 720 ml Balance 840 ml 720 ml Current Medications: I have reviewed the current psychotropics carefully including drug interactions. Risk benefit ratio favors no change other than as noted in my dictated progress note. Diagnosis: Problems: (1) Encounter for medical screening examination (2) MDD (major depressive disorder) (3) Anxiety disorder (4) Major depressive disorder, recurrent episode (5) Impulse control disorder (6) Major neurocognitive disorder, due to vascular disease, with behavioral dis turbance, mild NORBERTO RICHTER MD Apr 29, 2019 21:53
[2019-04-29] MEDS: LORazepam 0.5 MG TABLET PO PRN (22:54)
--- NOTE | 2019-04-29 23:19 | PN ---
DATE: 04/27/2019 This late entry 04/27/2019 covers elements not covered in my initial note. SUBJECTIVE: I met with the patient evening of 04/27/2019. Per LITO Smith, the patient slept 6 hours previous night. She probably has UTI, culture and sensitivity is awaited, but there are white cells in the UA and nitrites positive. She has been agitated, intermittently psychotic, yelling out for her parents at times, received Zyprexa x 2 p.r.n. REVIEW OF SYSTEMS: Ambulation impaired, in Broda chair. No CV, , pulmonary, eye, ENT system symptoms on review. Reliability varies. MENTAL STATUS EXAM: Oriented to herself and more oriented at other times. Insight, judgment, recent memory is impaired, remote is better. Language function intact. Attention span short. Mood and affect remain somewhat labile, anxious. LABORATORY DATA: Reviewed. IMPRESSION: Major depressive disorder with psychotic features, rule out bipolar disorder, mixed with psychotic features, urinary tract infection, seizure disorder; anxiety disorder, unspecified; impulse control disorder, unspecified. Rest unchanged. PLAN: Continue psychotropics from initial note. Treat the UTI as clinically indicated. Rest unchanged for now. Valproic acid level is therapeutic at 54. NORBERTO RICHTER MD DR: ROCCO/nora JOB#: [id number] / [id number]
--- NOTE | 2019-04-29 23:42 | PN ---
DATE: 04/28/2019 PSYCHIATRIC PROGRESS NOTE This late entry 04/28/2019 covers elements not covered in my initial note. SUBJECTIVE: I met with the patient evening of 04/28/2019. The patient slept 8 hours previous night. She remains intermittently anxious, agitated, paranoid, but much better as I met with her in the evening, seems cognitively more intact and more appropriate in conversation. She received Zyprexa Zydis x 3 p.r.n. during the day for her agitation. She was cursing at staff, grabbed at another patient. UA sensitivity is awaited. She does have a UTI, which is probably contributing to her agitation. REVIEW OF SYSTEMS: Ambulation impaired, in Broda chair. No CV, , PULMONARY, EYE system symptoms on review. MENTAL STATUS EXAM: Oriented to herself and at times to situation. Speech is coherent, has some latency, low in volume. Abstraction fair, computation impaired, language function intact, attention span short. Mood and affect remain somewhat anxious, labile, but showing improvement at times. LABORATORY DATA: Reviewed. IMPRESSION: Major depressive disorder with psychotic features; rule out bipolar disorder, mixed with psychotic features; mild cognitive impairment versus major neurocognitive disorder, multifactorial with delusion, depression; urinary tract infection. Rest unchanged. PLAN: Continue psychotropics from initial note. Treat the UTI once sensitivity returns. Continue Seroquel, Zyprexa as p.r.n., Cogentin, Ativan, Depakote, Neurontin, and she is on Keppra, lamotrigine for her seizures. Rest unchanged for now and Risperdal 0.25 mg b.i.d. MAN Sen RICHTER MD DR: ROCCO/nora JOB#: [id number] / [id number]
[2019-04-30] MEDS: LEVOTHYROXINE 50 MCG TABLET PO SCH (06:04)
[2019-04-30 06:29] VITALS: BP 113/74
[2019-04-30] MEDS: DICLOFENAC SODIUM 1% TOPICAL GEL 100GM TUBE. TP SCH ×3 (11:11→19:55)
[2019-04-30] MEDS: DIVALPROEX SODIUM 250 MG TABLET.DR. PO SCH ×3 (11:12→19:55)
[2019-04-30] MEDS: hydrOXYzine HCL 25 MG TABLET PO SCH ×3 (11:12→19:55)
[2019-04-30] MEDS: levETIRAcetam 500 MG TABLET PO SCH ×2 (11:12→19:54)
[2019-04-30] MEDS: SERTRALINE 50 MG TABLET. PO SCH (11:12)
[2019-04-30] MEDS: DEXTROMETHORPHAN/QUINIDINE 20/10MG CAPSULE. PO SCH ×2 (11:12→19:55)
[2019-04-30] MEDS: lamoTRIgine 100 MG TABLET. PO SCH (11:12)
[2019-04-30] MEDS: FUROSEMIDE 20 MG TABLET PO SCH (11:12)
[2019-04-30] MEDS: LACTOBACILLUS RHAMNOSUS GG 1 CAPSULE. PO SCH ×2 (11:12→19:54)
[2019-04-30] MEDS: traMADol 50 MG TABLET PO SCH ×2 (11:13→19:57)
[2019-04-30] MEDS: BENZTROPINE MESYLATE 0.5 MG TABLET PO SCH ×2 (11:13→19:54)
[2019-04-30] MEDS: OMEGA-3 FATTY ACIDS/FISH OIL 1,000 MG CAPSULE. PO SCH (11:13)
[2019-04-30] MEDS: QUEtiapine 50 MG TABLET. PO SCH ×3 (11:13→17:46)
[2019-04-30] MEDS: GABAPENTIN 300 MG CAPSULE. PO SCH ×3 (11:13→19:54)
[2019-04-30] MEDS: CHOLECALCIFEROL (VITAMIN D3) 1,000 UNIT TABLET PO SCH (11:13)
[2019-04-30] MEDS: risperiDONE 0.25 MG TABLET. PO SCH ×2 (11:13→17:46)
[2019-04-30] MEDS: LORazepam 0.5 MG TABLET PO PRN ×2 (15:05→21:44)
[2019-04-30 16:06] VITALS: BP 113/78
[2019-04-30] MEDS: MELATONIN 3 MG TABLET PO SCH (19:54)
--- NOTE | 2019-04-30 21:21 | PDOC ---
Exam Note: Cb Note: Please also refer to the separate dictated note~for this date of service dictated separately.~Patient seen individually. Discussed the patient with Nursing staff reviewed the chart.~Reviewed interim history and current functioning. Reviewed vital signs,~Labs/ Radiology~and current medications noted below. Continue current treatment with the changes noted in the dictated addendum note Assessment: Vital Signs/I&O: Vital Signs Date Time Temp Pulse Resp B/P (MAP) Pulse Ox O2 Delivery O2 Flow Rate FiO2 04/30/19 19:57 97 04/30/19 16:06 97.7 102 20 113/78 (90) 04/29/19 05:58 Room Air I & O 04/29/19 04/29/19 04/30/19 15:00 23:00 07:00 Intake Total 720 ml 360 ml Balance 720 ml 360 ml Current Medications: I have reviewed the current psychotropics carefully including drug interactions. Risk benefit ratio favors no change other than as noted in my dictated progress note. Diagnosis: Problems: (1) Encounter for medical screening examination (2) MDD (major depressive disorder) (3) Anxiety disorder (4) Major depressive disorder, recurrent episode (5) Impulse control disorder (6) Major neurocognitive disorder, due to vascular disease, with behavioral disturbance, mild NORBERTO RICHTER MD Apr 30, 2019 21:21
--- NOTE | 2019-05-01 00:24 | PN ---
DATE: 04/29/2019 PSYCHIATRIC PROGRESS NOTE This late entry 04/29/2019 covers elements not covered in my initial note. SUBJECTIVE: I met with the patient evening of 04/29/2019. Per LITO Romero, the patient slept 7-1/2 hours previous night. Her UA has reflux to culture and sensitivity report is still awaited. I do feel her confusion, agitation, mood lability will improve once the UTI is treated. She overall appears less psychotic. REVIEW OF SYSTEMS: Ambulation impaired, in Broda chair. No CV, , pulmonary, eye system symptoms on review. Reliability varies. MENTAL STATUS EXAM: Oriented to herself, situation at times and more verbal forthcoming appropriate in her conversation with me evening of 04/29/2019. Abstraction fair, computation impaired, language function intact, attention span short. She is still paranoid at times, screams out, but less so than before. LABORATORY DATA: Reviewed. IMPRESSION: Unchanged from initial note. PLAN: No change from initial note. Treat the UTI once sensitivity returns. Adjust psychotropics further thereafter. NORBERTO RICHTER MD DR: ROCCO/nora JOB#: [id number] / [id number]
[2019-05-01] MEDS: traMADol 50 MG TABLET PO PRN (00:52)
[2019-05-01] MEDS: LEVOTHYROXINE 50 MCG TABLET PO SCH (05:05)
[2019-05-01] MEDS: LORazepam 0.5 MG TABLET PO PRN ×2 (05:39→11:36)
[2019-05-01 05:55] VITALS: BP 108/68
[2019-05-01 06:51] LABS: BASO % 0 % (0-3); EOS # 0.3 x10^3/uL (0.0-0.7); EOS % 4 % (0-3); HEMATOCRIT 41.9 % (36.0-47.0); HEMOGLOBIN 13.9 g/dL (12.0-15.5); LYMPH # 1.5 x10^3/uL (1.0-4.8); LYMPH % 20 % (24-48); MEAN CORPUSCULAR HEMOGLOBIN 32 pg (25-35); MEAN CORPUSCULAR HGB CONC 33 g/dL (31-37); MEAN CORPUSCULAR VOLUME 96 fL (79-100); MONO # 0.7 x10^3/uL (0.0-1.1); MONO % 9 % (0-9); NEUT % 67 % (31-73); PLATELET COUNT 212 x10^3/uL (140-400); RED BLOOD COUNT 4.38 x10^6/uL (3.50-5.40); RED CELL DISTRIBUTION WIDTH 13.5 % (11.5-14.5); WHITE BLOOD COUNT 7.5 x10^3/uL (4.0-11.0)
[2019-05-01 07:05] LABS: CALCIUM 8.5 mg/dL (8.5-10.1); CREATININE 0.8 mg/dL (0.6-1.0); GFR 74.2; POTASSIUM 4.2 mmol/L (3.5-5.1); TOTAL BILIRUBIN 0.2 mg/dL (0.2-1.0)
[2019-05-01] MEDS: FUROSEMIDE 20 MG TABLET PO SCH (09:04)
[2019-05-01] MEDS: CHOLECALCIFEROL (VITAMIN D3) 1,000 UNIT TABLET PO SCH (09:04)
[2019-05-01] MEDS: SERTRALINE 50 MG TABLET. PO SCH (09:04)
[2019-05-01] MEDS: lamoTRIgine 100 MG TABLET. PO SCH (09:04)
[2019-05-01] MEDS: traMADol 50 MG TABLET PO SCH ×2 (09:04→20:03)
[2019-05-01] MEDS: GABAPENTIN 300 MG CAPSULE. PO SCH ×3 (09:04→20:00)
[2019-05-01] MEDS: LACTOBACILLUS RHAMNOSUS GG 1 CAPSULE. PO SCH ×2 (09:05→19:59)
[2019-05-01] MEDS: BENZTROPINE MESYLATE 0.5 MG TABLET PO SCH ×2 (09:05→19:59)
[2019-05-01] MEDS: risperiDONE 0.25 MG TABLET. PO SCH ×2 (09:05→17:51)
[2019-05-01] MEDS: OMEGA-3 FATTY ACIDS/FISH OIL 1,000 MG CAPSULE. PO SCH (09:05)
[2019-05-01] MEDS: DEXTROMETHORPHAN/QUINIDINE 20/10MG CAPSULE. PO SCH ×2 (09:05→20:00)
[2019-05-01] MEDS: levETIRAcetam 500 MG TABLET PO SCH ×2 (09:05→19:59)
[2019-05-01] MEDS: QUEtiapine 50 MG TABLET. PO SCH ×3 (09:05→17:52)
[2019-05-01] MEDS: DIVALPROEX SODIUM 250 MG TABLET.DR. PO SCH ×3 (09:05→19:59)
[2019-05-01] MEDS: hydrOXYzine HCL 25 MG TABLET PO SCH ×3 (09:05→19:59)
[2019-05-01] MEDS: DICLOFENAC SODIUM 1% TOPICAL GEL 100GM TUBE. TP SCH ×3 (09:06→20:00)
--- NOTE | 2019-05-01 09:24 | PN ---
DATE: 04/30/2019 PSYCHIATRIC PROGRESS NOTE This late entry 04/30/2018 covers elements not covered in my initial note. SUBJECTIVE: I met with the patient evening of 04/30/2019. Per LITO Garcia, the patient slept 7 hours previous night. She slept until 11:00 a.m. Urine C and S is still awaited. She did reasonably in the morning and the evening, she was calling for her mother and father, received Zyprexa and Ativan at 1500. REVIEW OF SYSTEMS: Ambulation impaired, in Broda chair. No CV, , pulmonary, eye system symptoms on review, does complain of some tiredness. Much more coherent at certain brief times as compared to others. MENTAL STATUS EXAM: Oriented to herself, situation at times. Speech has some latency, coherent. Abstraction fair, computation impaired, language function intact, attention span short. Mood and affect somewhat withdrawn, anxious, labile at times, but part of this is due to her UTI. LABORATORY DATA: Reviewed. IMPRESSION: Unchanged from initial note. PLAN: No change from initial note. Treat the UTI once sensitivity returns. Adjust further thereafter. MAN Sen RICHTER MD DR: ROCCO/nora JOB#: [id number] / [id number]
[2019-05-01] MEDS: BACLOFEN 10 MG TABLET PO PRN (11:36)
[2019-05-01 15:45] VITALS: BP 100/68
[2019-05-01] MEDS: AMOXICILLIN 250 MG CAPSULE PO SCH (19:58)
[2019-05-01] MEDS: MELATONIN 3 MG TABLET PO SCH (19:59)
[2019-05-01] MEDS: MIRTAZAPINE 7.5 MG TABLET. PO SCH (20:03)
--- NOTE | 2019-05-01 21:14 | PDOC ---
Exam Note: Cb Note: Please also refer to the separate dictated note~for this date of service dictated separately.~Patient seen individually. Discussed the patient with Nursing staff reviewed the chart.~Reviewed interim history and current functioning. Reviewed vital signs,~Labs/ Radiology~and current medications noted below. Continue current treatment with the changes noted in the dictated addendum note Assessment: Vital Signs/I&O: Vital Signs Date Time Temp Pulse Resp B/P (MAP) Pulse Ox O2 Delivery O2 Flow Rate FiO2 05/01/19 21:08 16 97 Room Air 05/01/19 15:45 97.1 89 100/68 (79) I & O 04/30/19 04/30/19 05/01/19 15:00 23:00 07:00 Intake Total 120 ml 100 ml Balance 120 ml 100 ml Labs: Laboratory Tests Test 05/01/19 06:35 White Blood Count 7.5 x10^3/uL (4.0-11.0) Red Blood Count 4.38 x10^6/uL (3.50-5.40) Hemoglobin 13.9 g/dL (12.0-15.5) Hematocrit 41.9 % (36.0-47.0) Mean Corpuscular Volume 96 fL (79-100) Mean Corpuscular Hemoglobin 32 pg (25-35) Mean Corpuscular Hemoglobin Concent 33 g/dL (31-37) Red Cell Distribution Width 13.5 % (11.5-14.5) Platelet Count 212 x10^3/uL (140-400) Neutrophils (%) (Auto) 67 % (31-73) Lymphocytes (%) (Auto) 20 % (24-48) L Monocytes (%) (Auto) 9 % (0-9) Eosinophils (%) (Auto) 4 % (0-3) H Basophils (%) (Auto) 0 % (0-3) Neutrophils # (Auto) 5.0 x10^3uL (1.8-7.7) Lymphocytes # (Auto) 1.5 x10^3/uL (1.0-4.8) Monocytes # (Auto) 0.7 x10^3/uL (0.0-1.1) Eosinophils # (Auto) 0.3 x10^3/uL (0.0-0.7) Basophils # (Auto) 0.0 x10^3/uL (0.0-0.2) Sodium Level 143 mmol/L (136-145) Potassium Level 4.2 mmol/L (3.5-5.1) Chloride Level 109 mmol/L (98-107) H Carbon Dioxide Level 28 mmol/L (21-32) Anion Gap 6 (6-14) Blood Urea Nitrogen 20 mg/dL (7-20) Creatinine 0.8 mg/dL (0.6-1.0) Estimated GFR (Cockcroft-Gault) 74.2 BUN/Creatinine Ratio 25 (6-20) H Glucose Level 84 mg/dL (70-99) Calcium Level 8.5 mg/dL (8.5-10.1) Total Bilirubin 0.2 mg/dL (0.2-1.0) Aspartate Amino Transferase (AST) 23 U/L (15-37) Alanine Aminotransferase (ALT) 34 U/L (14-59) Alkaline Phosphatase 58 U/L (46-116) Total Protein 6.0 g/dL (6.4-8.2) L Albumin 3.0 g/dL (3.4-5.0) L Albumin/Globulin Ratio 1.0 (1.0-1.7) Current Medications: Meds: Current Medications Medications (Trade) Dose Ordered Sig/Malika Route PRN Reason Start Time Stop Time Status Last Admin Dose Admin Amoxicillin (Amoxil) 500 mg [id number] PO 05/01/19 21:00 05/08/19 21:00 05/01/19 19:58 Mirtazapine (Remeron) 7.5 mg QHS PO 05/01/19 21:00 05/01/19 20:03 I have reviewed the current psychotropics carefully including drug interactions. Risk benefit ratio favors no change other than as noted in my dictated progress note. Diagnosis: Problems: (1) Encounter for medical screening examination (2) MDD (major depressive disorder) (3) Anxiety disorder (4) Major depressive disorder, recurrent episode (5) Impulse control disorder (6) Major neurocognitive disorder, due to vascular disease, with behavioral disturbance, mild NEELAM,NORBERTO Marquez MD May 01, 2019 21:14
[2019-05-02] MEDS: LEVOTHYROXINE 50 MCG TABLET PO SCH (05:32)
[2019-05-02] MEDS: IBUPROFEN 600 MG TABLET. PO PRN ×2 (05:32→15:48)
[2019-05-02 05:40] VITALS: BP 154/82
[2019-05-02] MEDS: AMOXICILLIN 250 MG CAPSULE PO SCH ×3 (09:14→19:55)
[2019-05-02] MEDS: OMEGA-3 FATTY ACIDS/FISH OIL 1,000 MG CAPSULE. PO SCH (09:14)
[2019-05-02] MEDS: risperiDONE 0.25 MG TABLET. PO SCH ×2 (09:14→18:08)
[2019-05-02] MEDS: GABAPENTIN 300 MG CAPSULE. PO SCH ×3 (09:14→21:00)
[2019-05-02] MEDS: LACTOBACILLUS RHAMNOSUS GG 1 CAPSULE. PO SCH ×2 (09:14→19:55)
[2019-05-02] MEDS: DIVALPROEX SODIUM 250 MG TABLET.DR. PO SCH ×3 (09:14→19:54)
[2019-05-02] MEDS: traMADol 50 MG TABLET PO SCH ×2 (09:14→19:54)
[2019-05-02] MEDS: hydrOXYzine HCL 25 MG TABLET PO SCH ×3 (09:15→19:55)
[2019-05-02] MEDS: levETIRAcetam 500 MG TABLET PO SCH ×2 (09:15→19:54)
[2019-05-02] MEDS: FUROSEMIDE 20 MG TABLET PO SCH (09:15)
[2019-05-02] MEDS: CHOLECALCIFEROL (VITAMIN D3) 1,000 UNIT TABLET PO SCH (09:15)
[2019-05-02] MEDS: QUEtiapine 50 MG TABLET. PO SCH ×3 (09:15→18:08)
[2019-05-02] MEDS: SERTRALINE 50 MG TABLET. PO SCH (09:15)
[2019-05-02] MEDS: DEXTROMETHORPHAN/QUINIDINE 20/10MG CAPSULE. PO SCH ×2 (09:15→19:54)
[2019-05-02] MEDS: BENZTROPINE MESYLATE 0.5 MG TABLET PO SCH ×2 (09:15→19:55)
[2019-05-02] MEDS: lamoTRIgine 100 MG TABLET. PO SCH (09:15)
[2019-05-02] MEDS: DICLOFENAC SODIUM 1% TOPICAL GEL 100GM TUBE. TP SCH ×3 (09:16→19:54)
[2019-05-02 15:49] VITALS: BP 124/85
[2019-05-02] MEDS: MIRTAZAPINE 7.5 MG TABLET. PO SCH (19:55)
[2019-05-02] MEDS: MELATONIN 3 MG TABLET PO SCH (19:55)
--- NOTE | 2019-05-02 21:17 | PDOC ---
Exam Note: Cb Note: Please also refer to the separate dictated note~for this date of service dictated separately.~Patient seen individually. Discussed the patient with Nursing staff reviewed the chart.~Reviewed interim history and current functioning. Reviewed vital signs,~Labs/ Radiology~and current medications noted below. Continue current treatment with the changes noted in the dictated addendum note Assessment: Vital Signs/I&O: Vital Signs Date Time Temp Pulse Resp B/P (MAP) Pulse Ox O2 Delivery O2 Flow Rate FiO2 05/02/19 19:54 18 95 Room Air 05/02/19 15:49 98.7 98 124/85 (98) I & O 05/01/19 05/01/19 05/02/19 15:00 23:00 07:00 Intake Total 360 ml 100 ml Balance 360 ml 100 ml Current Medications: I have reviewed the current psychotropics carefully including drug interactions. Risk benefit ratio favors no change other than as noted in my dictated progress note. Diagnosis: Problems: (1) Encounter for medical screening examination (2) MDD (major depressive disorder) (3) Anxiety disorder (4) Major depressive disorder, recurrent episode (5) Impulse control disorder (6) Major neurocognitive disorder, due to vascular disease, with behavioral disturbance, mild NORBERTO RICHTER MD May 02, 2019 21:17
--- NOTE | 2019-05-02 22:13 | PN ---
DATE: 05/01/2019 PSYCHIATRIC PROGRESS NOTE This late entry 05/01/2019 covers elements not covered in my initial note. SUBJECTIVE: I met with the patient evening of 05/01/2019 in her room at length. Discussed with LITO Garcia, the patient slept 1-3/4 hours previous night. She has been yelling, agitated, restless, had her medications arranged. She was then making suicidal statements of wanting to and asking the nursing staff how many ways that she could kill herself. She has been started on Amoxil 500 mg t.i.d. for her UTI per Dr. Arango and we will see how she responds to this. REVIEW OF SYSTEMS: Ambulation impaired and lying in bed, otherwise, in Broda chair. No CV, , pulmonary, eye, ENT system symptoms on review. Reliability varies. MENTAL STATUS EXAM: Oriented to herself, at times situation. Other times, more coherent. Abstraction fair, computation impaired, language function intact, attention span short. Mood and affect remains quite labile, anxious, paranoid. LABORATORY DATA: Reviewed. IMPRESSION: Major depressive disorder with psychotic features, rule out bipolar disorder, mixed episode, mild cognitive impairment versus major neurocognitive disorder, multifactorial with delusion, depression, behavioral disturbance, urinary tract infection. PLAN: Continue current psychotropic. Start Remeron 7.5 mg at bedtime to help with her insomnia and anxiety. Rest unchanged for now. Reviewed drug interactions at some length. NORBERTO RICHTER MD DR: ROCCO/nora JOB#: [id number] / [id number]
[2019-05-03 06:02] VITALS: BP 102/69
[2019-05-03] MEDS: LEVOTHYROXINE 50 MCG TABLET PO SCH (06:05)
[2019-05-03] MEDS: OMEGA-3 FATTY ACIDS/FISH OIL 1,000 MG CAPSULE. PO SCH (07:56)
[2019-05-03] MEDS: FUROSEMIDE 20 MG TABLET PO SCH (07:56)
[2019-05-03] MEDS: LACTOBACILLUS RHAMNOSUS GG 1 CAPSULE. PO SCH ×2 (07:56→19:38)
[2019-05-03] MEDS: QUEtiapine 50 MG TABLET. PO SCH ×3 (07:56→17:45)
[2019-05-03] MEDS: BENZTROPINE MESYLATE 0.5 MG TABLET PO SCH ×2 (07:56→19:38)
[2019-05-03] MEDS: AMOXICILLIN 250 MG CAPSULE PO SCH ×3 (07:56→19:38)
[2019-05-03] MEDS: hydrOXYzine HCL 25 MG TABLET PO SCH ×3 (07:57→19:38)
[2019-05-03] MEDS: DIVALPROEX SODIUM 250 MG TABLET.DR. PO SCH ×3 (07:57→19:38)
[2019-05-03] MEDS: risperiDONE 0.25 MG TABLET. PO SCH ×2 (07:57→17:45)
[2019-05-03] MEDS: CHOLECALCIFEROL (VITAMIN D3) 1,000 UNIT TABLET PO SCH (07:57)
[2019-05-03] MEDS: levETIRAcetam 500 MG TABLET PO SCH ×2 (07:57→19:39)
[2019-05-03] MEDS: SERTRALINE 50 MG TABLET. PO SCH (07:57)
[2019-05-03] MEDS: DEXTROMETHORPHAN/QUINIDINE 20/10MG CAPSULE. PO SCH ×2 (07:58→19:39)
[2019-05-03] MEDS: lamoTRIgine 100 MG TABLET. PO SCH (07:58)
[2019-05-03] MEDS: traMADol 50 MG TABLET PO SCH ×2 (08:00→19:39)
[2019-05-03] MEDS: GABAPENTIN 300 MG CAPSULE. PO SCH ×3 (08:00→19:39)
[2019-05-03] MEDS: DICLOFENAC SODIUM 1% TOPICAL GEL 100GM TUBE. TP SCH ×3 (08:01→19:39)
[2019-05-03] MEDS: traMADol 50 MG TABLET PO PRN (13:36)
[2019-05-03 16:11] VITALS: BP 133/82
[2019-05-03] MEDS: MELATONIN 3 MG TABLET PO SCH (19:38)
[2019-05-03] MEDS: MIRTAZAPINE 7.5 MG TABLET. PO SCH (19:39)
--- NOTE | 2019-05-03 21:24 | PDOC ---
Exam Note: Cb Note: Please also refer to the separate dictated note~for this date of service dictated separately.~Patient seen individually. Discussed the patient with Nursing staff reviewed the chart.~Reviewed interim history and current functioning. Reviewed vital signs,~Labs/ Radiology~and current medications noted below. Continue current treatment with the changes noted in the dictated addendum note Assessment: Vital Signs/I&O: Vital Signs Date Time Temp Pulse Resp B/P (MAP) Pulse Ox O2 Delivery O2 Flow Rate FiO2 05/03/19 20:39 18 97 Room Air 05/03/19 16:11 98.4 96 133/82 (99) I & O 05/02/19 05/02/19 05/03/19 15:00 23:00 07:00 Intake Total 240 ml 0 ml Balance 240 ml 0 ml Current Medications: I have reviewed the current psychotropics carefully including drug interactions. Risk benefit ratio favors no change other than as noted in my dictated progress note. Diagnosis: Problems: (1) Encounter for medical screening examination (2) MDD (major depressive disorder) (3) Anxiety disorder (4) Major depressive disorder, recurrent episode (5) Impulse control disorder (6) Major neurocognitive disorder, due to vascular disease, with behavioral disturbance, mild NORBERTO RICHTER MD May 03, 2019 21:24
[2019-05-04] MEDS: LEVOTHYROXINE 50 MCG TABLET PO SCH (05:34)
[2019-05-04] MEDS: traMADol 50 MG TABLET PO SCH ×2 (05:35→20:08)
[2019-05-04 06:09] VITALS: BP 102/51
[2019-05-04] MEDS: DICLOFENAC SODIUM 1% TOPICAL GEL 100GM TUBE. TP SCH ×3 (08:11→20:13)
[2019-05-04] MEDS: DEXTROMETHORPHAN/QUINIDINE 20/10MG CAPSULE. PO SCH ×2 (08:11→20:08)
[2019-05-04] MEDS: BENZTROPINE MESYLATE 0.5 MG TABLET PO SCH ×2 (08:12→20:09)
[2019-05-04] MEDS: OMEGA-3 FATTY ACIDS/FISH OIL 1,000 MG CAPSULE. PO SCH (08:12)
[2019-05-04] MEDS: hydrOXYzine HCL 25 MG TABLET PO SCH ×3 (08:12→20:08)
[2019-05-04] MEDS: QUEtiapine 50 MG TABLET. PO SCH ×3 (08:12→17:26)
[2019-05-04] MEDS: CHOLECALCIFEROL (VITAMIN D3) 1,000 UNIT TABLET PO SCH (08:12)
[2019-05-04] MEDS: GABAPENTIN 300 MG CAPSULE. PO SCH ×3 (08:12→20:08)
[2019-05-04] MEDS: risperiDONE 0.25 MG TABLET. PO SCH ×2 (08:13→17:26)
[2019-05-04] MEDS: lamoTRIgine 100 MG TABLET. PO SCH (08:13)
[2019-05-04] MEDS: SERTRALINE 50 MG TABLET. PO SCH (08:13)
[2019-05-04] MEDS: LACTOBACILLUS RHAMNOSUS GG 1 CAPSULE. PO SCH ×2 (08:13→20:08)
[2019-05-04] MEDS: AMOXICILLIN 250 MG CAPSULE PO SCH ×3 (08:13→20:09)
[2019-05-04] MEDS: levETIRAcetam 500 MG TABLET PO SCH ×2 (08:13→20:08)
[2019-05-04] MEDS: FUROSEMIDE 20 MG TABLET PO SCH (08:13)
[2019-05-04] MEDS: DIVALPROEX SODIUM 250 MG TABLET.DR. PO SCH ×3 (08:14→20:07)
[2019-05-04] MEDS: IBUPROFEN 600 MG TABLET. PO PRN (15:38)
[2019-05-04 16:04] VITALS: BP 111/74
--- NOTE | 2019-05-04 19:48 | PN ---
DATE: 05/02/2019 PSYCHIATRIC PROGRESS NOTE This late entry 05/02/2019 covers elements not covered in my initial note. SUBJECTIVE: I met with the patient evening of 05/02/2019. Per LITO Garcia, the patient slept 7-3/4 hours previous night. She did well at night, but in the morning was irritable, redirectable, delusional that she was in [employer] and she was here to buy a hair dye. She does redirect a little better since the UTI is being treated. REVIEW OF SYSTEMS: Ambulation impaired, in Broda chair. No CV, , pulmonary, eye system symptoms on review. MENTAL STATUS EXAM: Oriented to herself, situation at times, more confused at other times. Abstraction fair, computation impaired, language function intact, attention span short. Mood and affect withdrawn, labile. LABORATORY DATA: Reviewed. IMPRESSION: Unchanged from initial note. PLAN: No change from initial note. NORBERTO RICHTER MD DR: ROCCO/nora JOB#: [id number] / [id number]
--- NOTE | 2019-05-04 19:50 | PN ---
DATE: 05/03/2019 PSYCHIATRIC PROGRESS NOTE This late entry 05/03/2019 covers elements not covered in my initial note. SUBJECTIVE: I met with the patient evening of 05/03/2019 and staffed a treatment team meeting with the entire team in the morning. The patient's cousin, Cherry, was to attend the meeting, but unavailable. Appetite 50%, sleeping average 6 hours, compliant with medications. She was quite agitated over the weekend, but doing a little better now. REVIEW OF SYSTEMS: Ambulation impaired, in Broda chair. No CV, , pulmonary, eye, ENT system symptoms on review. Reliability varies. MENTAL STATUS EXAM: Oriented to herself, at times situation. Speech is coherent, at times pressured. Abstraction fair, computation impaired, language function intact, attention span short. Mood and affect remains labile, but improved. Less yelling. LABORATORY DATA: Reviewed. IMPRESSION: Unchanged from initial note. PLAN: No change from initial note. Treat the UTI and then adjust psychotropics further as clinically indicated for her mood lability. Maintain her anti-seizure meds for now. MAN Sen RICHTER MD DR: ROCCO/nora JOB#: [id number] / [id number]
[2019-05-04] MEDS: MELATONIN 3 MG TABLET PO SCH (20:08)
[2019-05-04] MEDS: MIRTAZAPINE 7.5 MG TABLET. PO SCH (20:08)
--- NOTE | 2019-05-04 22:30 | PDOC ---
Exam Note: Cb Note: Please also refer to the separate dictated note~for this date of service dictated separately.~Patient seen individually. Discussed the patient with Nursing staff reviewed the chart.~Reviewed interim history and current functioning. Reviewed vital signs,~Labs/ Radiology~and current medications noted below. Continue current treatment with the changes noted in the dictated addendum note Assessment: Vital Signs/I&O: Vital Signs Date Time Temp Pulse Resp B/P (MAP) Pulse Ox O2 Delivery O2 Flow Rate FiO2 05/04/19 21:28 97 05/04/19 16:04 97.8 98 16 111/74 (86) Room Air I & O 05/03/19 05/03/19 05/04/19 15:00 23:00 07:00 Intake Total 240 ml 240 ml 240 ml Balance 240 ml 240 ml 240 ml Current Medications: I have reviewed the current psychotropics carefully including drug interactions. Risk benefit ratio favors no change other than as noted in my dictated progress note. Diagnosis: Problems: (1) Encounter for medical screening examination (2) MDD (major depressive disorder) (3) Anxiety disorder (4) Major depressive disorder, recurrent episode (5) Impulse control disorder (6) Major neurocognitive disorder, due to vascular disease, with behavioral disturbance, mild NORBERTO RICHTER MD May 04, 2019 22:30
[2019-05-05] MEDS: LORazepam 0.5 MG TABLET PO PRN (00:48)
[2019-05-05] MEDS: BACLOFEN 10 MG TABLET PO PRN ×2 (00:48→14:56)
[2019-05-05] MEDS: LEVOTHYROXINE 50 MCG TABLET PO SCH (05:20)
[2019-05-05 05:27] VITALS: BP 118/71
[2019-05-05] MEDS: BENZTROPINE MESYLATE 0.5 MG TABLET PO SCH ×2 (08:56→20:18)
[2019-05-05] MEDS: CHOLECALCIFEROL (VITAMIN D3) 1,000 UNIT TABLET PO SCH (08:56)
[2019-05-05] MEDS: AMOXICILLIN 250 MG CAPSULE PO SCH ×3 (08:56→20:17)
[2019-05-05] MEDS: traMADol 50 MG TABLET PO SCH ×2 (08:56→20:17)
[2019-05-05] MEDS: QUEtiapine 50 MG TABLET. PO SCH ×3 (08:57→17:22)
[2019-05-05] MEDS: FUROSEMIDE 20 MG TABLET PO SCH (08:57)
[2019-05-05] MEDS: lamoTRIgine 100 MG TABLET. PO SCH (08:57)
[2019-05-05] MEDS: OMEGA-3 FATTY ACIDS/FISH OIL 1,000 MG CAPSULE. PO SCH (08:57)
[2019-05-05] MEDS: hydrOXYzine HCL 25 MG TABLET PO SCH ×3 (08:57→20:18)
[2019-05-05] MEDS: DIVALPROEX SODIUM 250 MG TABLET.DR. PO SCH ×3 (08:57→20:18)
[2019-05-05] MEDS: GABAPENTIN 300 MG CAPSULE. PO SCH ×3 (08:57→20:18)
[2019-05-05] MEDS: levETIRAcetam 500 MG TABLET PO SCH ×2 (08:57→20:18)
[2019-05-05] MEDS: DEXTROMETHORPHAN/QUINIDINE 20/10MG CAPSULE. PO SCH ×2 (08:57→20:17)
[2019-05-05] MEDS: risperiDONE 0.25 MG TABLET. PO SCH ×2 (08:57→17:22)
[2019-05-05] MEDS: SERTRALINE 50 MG TABLET. PO SCH (08:57)
[2019-05-05] MEDS: LACTOBACILLUS RHAMNOSUS GG 1 CAPSULE. PO SCH ×2 (08:57→20:18)
[2019-05-05] MEDS: DICLOFENAC SODIUM 1% TOPICAL GEL 100GM TUBE. TP SCH ×3 (08:58→20:21)
[2019-05-05 12:45] VITALS: BP 102/56
[2019-05-05] MEDS: MIRTAZAPINE 7.5 MG TABLET. PO SCH (20:17)
[2019-05-05] MEDS: MELATONIN 3 MG TABLET PO SCH (20:18)
--- NOTE | 2019-05-05 21:18 | PDOC ---
Exam Note: Cb Note: Please also refer to the separate dictated note~for this date of service dictated separately.~Patient seen individually. Discussed the patient with Nursing staff reviewed the chart.~Reviewed interim history and current functioning. Reviewed vital signs,~Labs/ Radiology~and current medications noted below. Continue current treatment with the changes noted in the dictated addendum note Assessment: Vital Signs/I&O: Vital Signs Date Time Temp Pulse Resp B/P (MAP) Pulse Ox O2 Delivery O2 Flow Rate FiO2 05/05/19 20:17 99 05/05/19 12:45 97.6 83 22 102/56 (71) 05/04/19 16:04 Room Air I & O 05/04/19 05/04/19 05/05/19 15:00 23:00 07:00 Intake Total 840 ml 480 ml Output Total 1 ml Balance 840 ml 479 ml Current Medications: I have reviewed the current psychotropics carefully including drug interactions. Risk benefit ratio favors no change other than as noted in my dictated progress note. Diagnosis: Problems: (1) Encounter for medical screening examination (2) MDD (major depressive disorder) (3) Anxiety disorder (4) Major depressive disorder, recurrent episode (5) Impulse control disorder (6) Major neurocognitive disorder, due to vascular disease, with behavioral disturbance, mild NORBERTO RICHTER MD May 05, 2019 21:18
--- NOTE | 2019-05-06 01:44 | PN ---
DATE: 05/05/2019 SUBJECTIVE: The patient denies any recurrent seizure since last visit. She has been intermittently agitated and restless. She denies headaches, visual disturbances, nausea, vomiting, chest pain, shortness of breath or palpitation. OBJECTIVE: GENERAL: A well-developed, well-nourished female, not in acute distress. VITAL SIGNS: Blood pressure 102/65, respiratory rate 20, pulse is 74, temperature 97.6, oxygen saturation 98% on room air. HEENT: Normocephalic, atraumatic, otherwise unremarkable. NECK: Supple. Negative for carotid bruit, lymphadenopathy or thyromegaly. LUNGS: Clear to A and P. CARDIOVASCULAR: Regular rate and rhythm, normal S1, S2. ABDOMEN: Soft. Bowel sounds positive. EXTREMITIES: Negative for cyanosis, clubbing or edema. NEUROLOGICAL EXAM: Mental Status: The patient is alert and oriented to herself. Speech is more fluent. No language dysfunction. Memory, judgment, and abstract thinking are poor. The patient denies hallucination or delusion. Cranial nerves are intact. No focal motor deficit. The strength is 3/5 in the left upper extremity secondary to previous stroke and contraction. Sensory examination revealed diminished pinprick and light touch senses over the left upper and lower extremities compared to those on the right side. Deep tendon reflexes were symmetric and hypoactive with absent Achilles responses. Gait: The patient is confined to a wheelchair. LABORATORY DATA: Urinalysis from 04/27/2019 revealed hematuria with positive nitrite and large urinary leukocyte esterase with white blood cells more than 40 and many bacteria. IMPRESSION: 1. Urinary tract infections with possible infectious encephalopathy. 2. History of seizure resulted from hemorrhagic stroke with contraction of the left upper extremity and possible recurrent seizure 3 days ago. 3. Multiple medical problems include history of hypertension, obstructive sleep apnea, depressions, anxiety, hypothyroidism. RECOMMENDATIONS: 1. Treat the underlying urinary tract infections. 2. Continue with current medical and psychiatric care and medications. M Catie WOOD MD DR: ERIN/nora JOB#: [id number] / [id number]
[2019-05-06] MEDS: LEVOTHYROXINE 50 MCG TABLET PO SCH (04:58)
[2019-05-06] MEDS: BACLOFEN 10 MG TABLET PO PRN (04:58)
[2019-05-06 05:36] VITALS: BP 119/77
[2019-05-06] MEDS: DEXTROMETHORPHAN/QUINIDINE 20/10MG CAPSULE. PO SCH ×2 (08:34→20:15)
[2019-05-06] MEDS: SERTRALINE 50 MG TABLET. PO SCH (08:35)
[2019-05-06] MEDS: DIVALPROEX SODIUM 250 MG TABLET.DR. PO SCH ×3 (08:35→20:14)
[2019-05-06] MEDS: QUEtiapine 50 MG TABLET. PO SCH ×3 (08:35→17:48)
[2019-05-06] MEDS: levETIRAcetam 500 MG TABLET PO SCH ×2 (08:36→20:14)
[2019-05-06] MEDS: traMADol 50 MG TABLET PO SCH ×2 (08:36→20:14)
[2019-05-06] MEDS: risperiDONE 0.25 MG TABLET. PO SCH ×2 (08:36→17:48)
[2019-05-06] MEDS: hydrOXYzine HCL 25 MG TABLET PO SCH ×3 (08:36→20:15)
[2019-05-06] MEDS: OMEGA-3 FATTY ACIDS/FISH OIL 1,000 MG CAPSULE. PO SCH (08:36)
[2019-05-06] MEDS: CHOLECALCIFEROL (VITAMIN D3) 1,000 UNIT TABLET PO SCH (08:36)
[2019-05-06] MEDS: GABAPENTIN 300 MG CAPSULE. PO SCH ×3 (08:36→20:15)
[2019-05-06] MEDS: lamoTRIgine 100 MG TABLET. PO SCH (08:36)
[2019-05-06] MEDS: LACTOBACILLUS RHAMNOSUS GG 1 CAPSULE. PO SCH ×2 (08:37→20:14)
[2019-05-06] MEDS: FUROSEMIDE 20 MG TABLET PO SCH (08:37)
[2019-05-06] MEDS: BENZTROPINE MESYLATE 0.5 MG TABLET PO SCH ×2 (08:37→20:15)
[2019-05-06] MEDS: AMOXICILLIN 250 MG CAPSULE PO SCH ×3 (08:37→20:15)
[2019-05-06] MEDS: DICLOFENAC SODIUM 1% TOPICAL GEL 100GM TUBE. TP SCH ×4 (08:38→20:16)
--- NOTE | 2019-05-06 11:42 | CONS ---
DATE OF CONSULTATION: 04/22/2019 NEUROLOGY CONSULTATION ATTENDING PHYSICIAN: Dr. Steele REASON FOR CONSULTATION: Seizure disorder. HISTORY OF PRESENT ILLNESS: This is a 58-year-old right-handed female who was [facility] 04[facility]2019 on account of agitation, irritability, yelling, striking out at peers and staff, and increased symptoms of anxiety with suicidal ideations. Neuro consult was requested because the patient has had history of hemorrhagic stroke, resulted in seizure and left hemiparesis with contractions of the left upper extremity and difficulty to walk. Currently, the patient denies headaches, visual disturbances, nausea or vomiting, chest pain, shortness of breath or palpitation, dysarthria or dysphagia. According to the chart, the patient had a seizure after the hemorrhagic stroke and she has been on Keppra since the stroke for a few years. PAST MEDICAL HISTORY: Other medical problems include hypothyroidism, hypernatremia, obstructive sleep apnea, Parkinson's disease, encephalopathy, hypertension, gastroesophageal reflux disease. PAST SURGICAL HISTORY: Positive for tracheostomy and trach placement after the stroke. PAST PSYCHIATRIC HISTORY: Positive for depression and pseudobulbar affect. FAMILY HISTORY: Unobtainable. SOCIAL HISTORY: Unobtainable; however, the patient has no history of smoking, alcohol drinking or illicit drug use. CURRENT HOME MEDICATIONS: Baclofen 10 mg 3 times daily, fish oil, Excedrin for headaches, diclofenac gel topical apply every 8 hours, ibuprofen 600 mg every 6 hours p.r.n., tramadol 50 mg every 6 hours p.r.n. for pain, Tylenol 500 mg every 6 hours, Depakote 250 mg 3 times a day, gabapentin 300 mg 3 times a day, lamotrigine 20 mg daily, Keppra 500 mg twice a day, escitalopram 20 mg daily, lorazepam 0.5 mg every 8 hours p.r.n., hydroxyzine 25 mg 3 times daily, benztropine 0.5 mg twice daily, Nuedexta 20/10 twice a day, furosemide 20 mg daily, levothyroxine 50 mcg daily, vitamin D3 1000 units daily, melatonin 10 mg at bedtime. ALLERGIES: The patient is allergic to CODEINE, HYDROCODONE and MORPHINE. PHYSICAL EXAMINATION: GENERAL: Well-developed, well-nourished female not in acute distress. VITAL SIGNS: She weighs 63.7 kilos. Blood pressure 112/70, respiratory rate 20, pulse is 72, oxygen saturation 97% and temperature 97.9. HEENT: Normocephalic, atraumatic; otherwise unremarkable. NECK: Supple. Negative for carotid bruit, lymphadenopathy or thyromegaly. LUNGS: Clear to A and P. CARDIOVASCULAR: Regular rate and rhythm, normal S1 and S2. There is no S3, S4 or murmur. ABDOMEN: Soft. Bowel sounds positive. EXTREMITIES: Negative for cyanosis, clubbing or pitting edema, but positive for contractions of the left upper extremity secondary to stroke and hemiplegia. NEUROLOGICAL EXAMINATION: MENTAL STATUS: The patient is alert, but disoriented. The speech is slow. CRANIAL NERVES: Visual schuster are full. Pupils are reactive to light and accommodation. The extraocular movements are intact. There is no nystagmus. There is no facial motor or sensory deficit. Hearing is intact bilaterally. The palate is elevated symmetrically. Sternocleidomastoid muscles are powerful bilaterally. The patient shrugs her shoulders symmetrically, protrudes her tongue in the midline without fasciculation or atrophy. MOTOR EXAMINATION: No focal muscle bulk was seen. The tone is normal. The strength is 3/5 in the left upper extremity with contraction secondary to hemiplegia. The strength elsewhere was 4/5 throughout. SENSORY EXAMINATION: Revealed diminished pinprick, light touch, vibratory and position senses over the left upper and lower extremities. Deep tendon reflexes were symmetric and ____ on the left upper and lower extremities. GAIT: Not tested as the patient is confined to a wheelchair secondary to previous stroke. LABORATORY DATA: From 04/17/2019 revealed sodium of 148, potassium 4, chloride 109, CO2 of 30. BUN 12, creatinine 0.9, glucose is 76, calcium 8.8. Liver enzymes are normal. T4 is normal and T3 is normal as well. CBC revealed white blood cells of 5.9 thousand, hemoglobin 14.1, hematocrit 43, platelet count 222,000. Urinalysis from 04/15/2019 revealed white blood cells of 5 to 10 cycles with small urinary leukocyte esterase and moderate bacteria. Valproic acid is 52. IMPRESSION: 1. History of hemorrhagic stroke, resulted in left hemiparesis with contraction of the left upper extremity. 2. History of seizure disorder since the stroke, stable on Keppra. 3. Multiple medical problems include depression, pseudobulbar palsy, obstructive sleep apnea, hypernatremia, hypothyroidism, headache and tremor of the hands, not present at this time. RECOMMENDATIONS: Due to previous stroke and history of seizure, the patient should be continued on Keppra. M Catie WOOD MD DR: EIRN/nora JOB#: [id number] / [id number]
--- NOTE | 2019-05-06 12:02 | PN ---
DATE: 04/24/2019 SUBJECTIVE: According to the nursing staff, the patient had "a bad day." She was restless, agitated towards the staff, yelling out for her mother and father. The last time she had spells described as seizure-like activity, lasted few minutes without complete loss of consciousness, urinary or bowel incontinence. The patient did not recall the event. OBJECTIVE: GENERAL: Well-developed, well-nourished female, not in acute distress. VITAL SIGNS: Blood pressure 146/80, respiratory rate 20, pulse is 84, temperature 98, oxygen saturation 94% on room air. HEENT: Normocephalic, atraumatic, otherwise unremarkable. NECK: Supple. Negative for carotid bruit, lymphadenopathy or thyromegaly. LUNGS: Clear to A and P. CARDIOVASCULAR: Regular rate and rhythm. Normal S1, S2. ABDOMEN: Soft. Bowel sounds positive. There is no palpable mass, organomegaly or tenderness. EXTREMITIES: Negative for cyanosis, clubbing or pitting edema. NEUROLOGICAL EXAM: Mental Status: The patient is alert to herself, but disoriented to time and place. Speech is ____. There is no language dysfunction. She follows 1-step commands. She denies hallucination or delusion. Cranial nerves are intact. Motor examination reveals left hemiplegia with contraction of the left upper extremity. Sensory examination revealed normal pinprick and light touch senses throughout. Deep tendon reflexes were symmetric and hypoactive without pathology responses. Gait: The patient confined to the wheelchair. LABORATORY DATA: CBC revealed white blood cells of 5900, hemoglobin 14.1, hematocrit 43, platelet count 221,000. Chemistry revealed sodium of 146, potassium 4, chloride 109, CO2 of 25. BUN 14, creatinine 1, glucose 76. Calcium is 8.9. AST is elevated at 82. Valproic acid is 52. IMPRESSION: 1. History of hemorrhagic stroke resulted in left hemiplegia with more contraction in the left upper extremity. 2. Multiple medical problems includes intermittent tremor like acute tremor, hypertension, gastroesophageal reflux, gastroesophageal reflux disease, agitation and depression. RECOMMENDATIONS: 1. Continue with current medications. 2. Repeat urinalysis. M Catie WOOD MD DR: ERIN/nora JOB#: [id number] / [id number]
[2019-05-06] MEDS: traMADol 50 MG TABLET PO PRN (13:09)
[2019-05-06 15:23] VITALS: BP 107/69
[2019-05-06] MEDS: MELATONIN 3 MG TABLET PO SCH (20:14)
[2019-05-06] MEDS: MIRTAZAPINE 7.5 MG TABLET. PO SCH (20:15)
--- NOTE | 2019-05-06 21:13 | PDOC ---
Exam Note: Cb Note: Please also refer to the separate dictated note~for this date of service dictated separately.~Patient seen individually. Discussed the patient with Nursing staff reviewed the chart.~Reviewed interim history and current functioning. Reviewed vital signs,~Labs/ Radiology~and current medications noted below. Continue current treatment with the changes noted in the dictated addendum note Assessment: Vital Signs/I&O: Vital Signs Date Time Temp Pulse Resp B/P (MAP) Pulse Ox O2 Delivery O2 Flow Rate FiO2 05/06/19 20:14 18 Room Air 05/06/19 15:23 98.2 90 107/69 (82) 94 I & O 05/05/19 05/05/19 05/06/19 15:00 23:00 07:00 Intake Total 240 ml 480 ml Balance 240 ml 480 ml Current Medications: I have reviewed the current psychotropics carefully including drug interactions. Risk benefit ratio favors no change other than as noted in my dictated progress note. Diagnosis: Problems: (1) MDD (major depressive disorder) (2) Anxiety disorder (3) Major depressive disorder, recurrent episode (4) Impulse control disorder (5) Major neurocognitive disorder, due to vascular disease, with behavioral disturbance, mild NORBERTO RICHTER MD May 06, 2019 21:13
--- NOTE | 2019-05-06 22:17 | PN ---
DATE: 05/04/2019 PSYCHIATRIC PROGRESS NOTE This late entry 05/04/2019 covers elements not covered in my initial note. SUBJECTIVE: I met with the patient evening of 05/04/2019. Per LITO Garcia, the patient did better in the morning, but in the evening she was asking for a gun to end her life and wanting to throw herself out of the window. She was adamant that there was a dog around her. She appears somewhat delirious, agitated, but redirectable. REVIEW OF SYSTEMS: Ambulation impaired, in Broda chair. No CV, , pulmonary, eye system symptoms on review. Reliability varies. MENTAL STATUS EXAM: Oriented to herself, at times situation. Speech coherent, can be loud at times. Abstraction fair, computation impaired, language function intact, attention span short. Mood and affect remains labile. LABORATORY DATA: Reviewed. IMPRESSION: Unchanged from initial note. PLAN: No change from initial note. Treat the UTI once this is resolved. If delirium persists, we will make further changes in her psychotropic DICTATION ENDS HERE NORBERTO RICHTER MD DR: ROCCO/nora JOB#: [id number] / [id number]
--- NOTE | 2019-05-06 22:18 | PN ---
DATE: 05/05/2019 PSYCHIATRIC PROGRESS NOTE This late entry 05/05/2019 covers the elements not covered in my initial note. SUBJECTIVE: I met with the patient in the evening of 05/05/2019. Per nursing report, the patient slept 7-1/2 hours previous night. She has been much better on 05/05/2019. She was yelling in the morning, but by the afternoon, seemed less agitated, less yelling, less psychotic, and less delirious. REVIEW OF SYSTEMS: Ambulation impaired, in Broda chair. No CV, , pulmonary, eye system symptoms on review. MENTAL STATUS EXAM: Oriented to herself and situation. Speech coherent, pleasant, has some latency. Abstraction fair, computation impaired, language function intact, attention span short. Mood and affect appears much improved as I met with her individually at some length in the evening. She was much less psychotic and much less delirious. LABORATORY DATA: Reviewed. IMPRESSION: Unchanged from initial note. PLAN: No change from initial note. NORBERTO RICHTER MD DR: ROCCO/nora JOB#: [id number] / [id number]
[2019-05-07] MEDS: LEVOTHYROXINE 50 MCG TABLET PO SCH (05:46)
[2019-05-07 06:19] VITALS: BP 98/61
[2019-05-07 07:03] LABS: BASO % 1 % (0-3); EOS # 0.3 x10^3/uL (0.0-0.7); EOS % 5 % (0-3); HEMATOCRIT 42.9 % (36.0-47.0); HEMOGLOBIN 14.1 g/dL (12.0-15.5); LYMPH # 1.5 x10^3/uL (1.0-4.8); LYMPH % 28 % (24-48); MEAN CORPUSCULAR HEMOGLOBIN 32 pg (25-35); MEAN CORPUSCULAR HGB CONC 33 g/dL (31-37); MEAN CORPUSCULAR VOLUME 96 fL (79-100); MONO # 0.5 x10^3/uL (0.0-1.1); MONO % 10 % (0-9); NEUT # 3.1 x10^3uL (1.8-7.7); NEUT % 57 % (31-73); PLATELET COUNT 221 x10^3/uL (140-400); RED BLOOD COUNT 4.46 x10^6/uL (3.50-5.40); RED CELL DISTRIBUTION WIDTH 13.8 % (11.5-14.5); WHITE BLOOD COUNT 5.5 x10^3/uL (4.0-11.0)
[2019-05-07 07:17] LABS: ALBUMIN 3.1 g/dL (3.4-5.0); CREATININE 0.8 mg/dL (0.6-1.0); GFR 74.2; POTASSIUM 4.3 mmol/L (3.5-5.1); TOTAL BILIRUBIN 0.2 mg/dL (0.2-1.0); TOTAL PROTEIN 6.2 g/dL (6.4-8.2)
[2019-05-07] MEDS: BENZTROPINE MESYLATE 0.5 MG TABLET PO SCH ×2 (08:32→20:36)
[2019-05-07] MEDS: AMOXICILLIN 250 MG CAPSULE PO SCH ×3 (08:32→20:36)
[2019-05-07] MEDS: hydrOXYzine HCL 25 MG TABLET PO SCH ×3 (08:32→20:36)
[2019-05-07] MEDS: DIVALPROEX SODIUM 250 MG TABLET.DR. PO SCH ×3 (08:33→20:36)
[2019-05-07] MEDS: levETIRAcetam 500 MG TABLET PO SCH ×2 (08:33→20:36)
[2019-05-07] MEDS: FUROSEMIDE 20 MG TABLET PO SCH (08:33)
[2019-05-07] MEDS: OMEGA-3 FATTY ACIDS/FISH OIL 1,000 MG CAPSULE. PO SCH (08:33)
[2019-05-07] MEDS: lamoTRIgine 100 MG TABLET. PO SCH (08:33)
[2019-05-07] MEDS: LACTOBACILLUS RHAMNOSUS GG 1 CAPSULE. PO SCH ×2 (08:33→20:36)
[2019-05-07] MEDS: risperiDONE 0.25 MG TABLET. PO SCH ×2 (08:34→16:06)
[2019-05-07] MEDS: DEXTROMETHORPHAN/QUINIDINE 20/10MG CAPSULE. PO SCH ×2 (08:34→20:42)
[2019-05-07] MEDS: QUEtiapine 50 MG TABLET. PO SCH ×3 (08:34→16:07)
[2019-05-07] MEDS: SERTRALINE 50 MG TABLET. PO SCH (08:34)
[2019-05-07] MEDS: CHOLECALCIFEROL (VITAMIN D3) 1,000 UNIT TABLET PO SCH (08:34)
[2019-05-07] MEDS: GABAPENTIN 300 MG CAPSULE. PO SCH ×3 (08:36→20:37)
[2019-05-07] MEDS: traMADol 50 MG TABLET PO SCH ×2 (08:37→16:07)
[2019-05-07] MEDS: DICLOFENAC SODIUM 1% TOPICAL GEL 100GM TUBE. TP SCH ×3 (09:00→20:43)
[2019-05-07 16:06] VITALS: BP 108/67
[2019-05-07] MEDS: MELATONIN 3 MG TABLET PO SCH (20:36)
[2019-05-07] MEDS: MIRTAZAPINE 7.5 MG TABLET. PO SCH (20:37)
--- NOTE | 2019-05-07 21:35 | PDOC ---
Exam Note: Cb Note: Please also refer to the separate dictated note~for this date of service dictated separately.~Patient seen individually. Discussed the patient with Nursing staff reviewed the chart.~Reviewed interim history and current functioning. Reviewed vital signs,~Labs/ Radiology~and current medications noted below. Continue current treatment with the changes noted in the dictated addendum note Assessment: Vital Signs/I&O: Vital Signs Date Time Temp Pulse Resp B/P (MAP) Pulse Ox O2 Delivery O2 Flow Rate FiO2 05/07/19 17:19 20 05/07/19 16:06 97.7 98 108/67 (81) 97 05/07/19 06:19 Room Air I & O 05/06/19 05/06/19 05/07/19 15:00 23:00 07:00 Intake Total 960 ml 480 ml 120 ml Balance 960 ml 480 ml 120 ml Labs: Laboratory Tests Test 05/07/19 06:13 White Blood Count 5.5 x10^3/uL (4.0-11.0) Red Blood Count 4.46 x10^6/uL (3.50-5.40) Hemoglobin 14.1 g/dL (12.0-15.5) Hematocrit 42.9 % (36.0-47.0) Mean Corpuscular Volume 96 fL (79-100) Mean Corpuscular Hemoglobin 32 pg (25-35) Mean Corpuscular Hemoglobin Concent 33 g/dL (31-37) Red Cell Distribution Width 13.8 % (11.5-14.5) Platelet Count 221 x10^3/uL (140-400) Neutrophils (%) (Auto) 57 % (31-73) Lymphocytes (%) (Auto) 28 % (24-48) Monocytes (%) (Auto) 10 % (0-9) H Eosinophils (%) (Auto) 5 % (0-3) H Basophils (%) (Auto) 1 % (0-3) Neutrophils # (Auto) 3.1 x10^3uL (1.8-7.7) Lymphocytes # (Auto) 1.5 x10^3/uL (1.0-4.8) Monocytes # (Auto) 0.5 x10^3/uL (0.0-1.1) Eosinophils # (Auto) 0.3 x10^3/uL (0.0-0.7) Basophils # (Auto) 0.0 x10^3/uL (0.0-0.2) Sodium Level 146 mmol/L (136-145) H Potassium Level 4.3 mmol/L (3.5-5.1) Chloride Level 108 mmol/L (98-107) H Carbon Dioxide Level 31 mmol/L (21-32) Anion Gap 7 (6-14) Blood Urea Nitrogen 18 mg/dL (7-20) Creatinine 0.8 mg/dL (0.6-1.0) Estimated GFR (Cockcroft-Gault) 74.2 BUN/Creatinine Ratio 23 (6-20) H Glucose Level 94 mg/dL (70-99) Calcium Level 9.0 mg/dL (8.5-10.1) Total Bilirubin 0.2 mg/dL (0.2-1.0) Aspartate Amino Transferase (AST) 16 U/L (15-37) Alanine Aminotransferase (ALT) 26 U/L (14-59) Alkaline Phosphatase 67 U/L (46-116) Total Protein 6.2 g/dL (6.4-8.2) L Albumin 3.1 g/dL (3.4-5.0) L Albumin/Globulin Ratio 1.0 (1.0-1.7) Current Medications: I have reviewed the current psychotropics carefully including drug interactions. Risk benefit ratio favors no change other than as noted in my dictated progress note. Diagnosis: Problems: (1) MDD (major depressive disorder) (2) Anxiety disorder (3) Major depressive disorder, recurrent episode (4) Impulse control disorder (5) Major neurocognitive disorder, due to vascular disease, with behavioral disturbance, mild NORBERTO RICHTER MD May 07, 2019 21:35
--- NOTE | 2019-05-08 00:23 | PN ---
DATE: 05/06/2019 PSYCHIATRIC PROGRESS NOTE This late entry 05/06/2019 covers the elements not covered in my initial note. SUBJECTIVE: I met with the patient in the evening of 05/06/2019. The patient slept 5-3/4 hours previous night. She is compliant with her medications, still has some intermittent yelling, but less delusional. REVIEW OF SYSTEMS: Ambulation impaired, in Broda chair. No CV, , pulmonary, eye, ENT system symptoms on review. MENTAL STATUS EXAM: Oriented to herself and situation. Speech has some latency, coherent. Abstraction fair, computation impaired, language function intact, attention span short. Mood and affect, lability is improved, less psychotic. LABORATORY DATA: Reviewed. IMPRESSION: Major depressive disorder with psychotic features, rule out bipolar disorder, mixed with psychotic features, mild cognitive impairment, seizure disorder, urinary tract infection. PLAN: Continue current psychotropics. The patient is showing some improvement in her mood lability as the UTI resolves. Continue rest of the psychotropics unchanged. She does complain of hand tremors significantly impairing her functioning and we will reassess this post medical stabilization. MAN Sen RICHTER MD DR: ROCCO/nora JOB#: [id number] / [id number]
[2019-05-08] MEDS: LEVOTHYROXINE 50 MCG TABLET PO SCH (06:02)
[2019-05-08 06:32] VITALS: BP 114/77
[2019-05-08] MEDS: DEXTROMETHORPHAN/QUINIDINE 20/10MG CAPSULE. PO SCH ×2 (08:45→21:06)
[2019-05-08] MEDS: lamoTRIgine 100 MG TABLET. PO SCH (08:45)
[2019-05-08] MEDS: AMOXICILLIN 250 MG CAPSULE PO SCH ×3 (08:46→21:02)
[2019-05-08] MEDS: FUROSEMIDE 20 MG TABLET PO SCH (08:46)
[2019-05-08] MEDS: OMEGA-3 FATTY ACIDS/FISH OIL 1,000 MG CAPSULE. PO SCH (08:46)
[2019-05-08] MEDS: levETIRAcetam 500 MG TABLET PO SCH ×2 (08:46→21:02)
[2019-05-08] MEDS: traMADol 50 MG TABLET PO SCH ×2 (08:47→21:06)
[2019-05-08] MEDS: LACTOBACILLUS RHAMNOSUS GG 1 CAPSULE. PO SCH ×2 (08:47→21:03)
[2019-05-08] MEDS: GABAPENTIN 300 MG CAPSULE. PO SCH ×3 (08:47→21:10)
[2019-05-08] MEDS: hydrOXYzine HCL 25 MG TABLET PO SCH ×3 (08:47→21:03)
[2019-05-08] MEDS: BENZTROPINE MESYLATE 0.5 MG TABLET PO SCH ×2 (08:47→21:02)
[2019-05-08] MEDS: risperiDONE 0.25 MG TABLET. PO SCH ×2 (08:47→17:20)
[2019-05-08] MEDS: CHOLECALCIFEROL (VITAMIN D3) 1,000 UNIT TABLET PO SCH (08:47)
[2019-05-08] MEDS: SERTRALINE 50 MG TABLET. PO SCH (08:47)
[2019-05-08] MEDS: QUEtiapine 50 MG TABLET. PO SCH ×3 (08:47→17:20)
[2019-05-08] MEDS: DIVALPROEX SODIUM 250 MG TABLET.DR. PO SCH ×3 (08:47→21:05)
[2019-05-08] MEDS: DICLOFENAC SODIUM 1% TOPICAL GEL 100GM TUBE. TP SCH ×3 (08:48→21:00)
[2019-05-08 15:42] VITALS: BP 102/65
[2019-05-08] MEDS ORDERED: AMOXICILLIN 250 MG CAPSULE PO SCH (21:00)
[2019-05-08] MEDS: MELATONIN 3 MG TABLET PO SCH (21:03)
[2019-05-08] MEDS: MIRTAZAPINE 7.5 MG TABLET. PO SCH (21:03)
--- NOTE | 2019-05-08 21:19 | PDOC ---
Exam Note: Cb Note: Please also refer to the separate dictated note~for this date of service dictated separately.~Patient seen individually. Discussed the patient with Nursing staff reviewed the chart.~Reviewed interim history and current functioning. Reviewed vital signs,~Labs/ Radiology~and current medications noted below. Continue current treatment with the changes noted in the dictated addendum note Assessment: Vital Signs/I&O: Vital Signs Date Time Temp Pulse Resp B/P (MAP) Pulse Ox O2 Delivery O2 Flow Rate FiO2 05/08/19 21:06 18 95 05/08/19 15:42 98.0 88 102/65 (77) 05/07/19 06:19 Room Air I & O 05/07/19 05/07/19 05/08/19 15:00 23:00 07:00 Intake Total 840 ml 700 ml Balance 840 ml 700 ml Current Medications: I have reviewed the current psychotropics carefully including drug interactions. Risk benefit ratio favors no change other than as noted in my dictated progress note. Diagnosis: Problems: (1) MDD (major depressive disorder) (2) Anxiety disorder (3) Major depressive disorder, recurrent episode (4) Impulse control disorder (5) Major neurocognitive disorder, due to vascular disease, with behavioral disturbance, mild NORBERTO RICHTER MD May 08, 2019 21:19
--- NOTE | 2019-05-08 23:25 | PN ---
DATE: 05/07/2019 PSYCHIATRIC PROGRESS NOTE This late entry, 05/07, covers the elements not covered in my initial note. SUBJECTIVE: I met with the patient on the evening of 05/07. The patient slept 7-3/4 hours previous night per LITO Haas. During the day, she has been calm, cooperative, alert, oriented, pleasant, wanting her aunt to pick her up. In the evening as I met with her and previously alerted on this by LITO Haas, the patient has voiced suicidal ideation. She states she is depressed about her overall health and medical condition, feels hopeless, worthless and wishes she would not wake up. When asked specifically about active suicidal ideation, she denied these, but stated sometimes she feels overwhelmed. She was quite coherent, discussing all of this which in itself is a little concerning. I have asked the nursing staff to move her closer to the nursing station line of sight of nursing staff, keep the door open for the night to monitor her. REVIEW OF SYSTEMS: Ambulation impaired, in Broda chair. No CV, , pulmonary, eye, ENT systems symptoms on review. Ambulation impaired. MENTAL STATUS EXAM: Oriented to herself and situation. Speech is coherent, has some latency. Abstraction fair, computation impaired, language function intact, attention span short. Mood and affect depressed. LABORATORY DATA: Reviewed. IMPRESSION: Major depressive disorder with psychotic features, rule out bipolar disorder, depressed with psychotic features, mild cognitive impairment. Rest unchanged including seizure disorder, urinary tract infection. PLAN: Treat the UTI. Maintain stability of seizures. Continue Risperdal 0.25 mg b.i.d., Remeron 7.5 mg at bedtime, Seroquel 50 t.i.d. along with the rest of her psychotropics and Zoloft 50 mg a day. We will increase to 75 mg a day. Rest unchanged for now. I had a discussion with nursing staff about all of this. NORBERTO RICHTER MD DR: ROCCO/nora JOB#: [id number] / [id number]
[2019-05-09 05:57] VITALS: BP 92/65
[2019-05-09] MEDS: LEVOTHYROXINE 50 MCG TABLET PO SCH (06:01)
[2019-05-09] MEDS: lamoTRIgine 100 MG TABLET. PO SCH (09:20)
[2019-05-09] MEDS: OMEGA-3 FATTY ACIDS/FISH OIL 1,000 MG CAPSULE. PO SCH (09:20)
[2019-05-09] MEDS: FUROSEMIDE 20 MG TABLET PO SCH (09:20)
[2019-05-09] MEDS: DEXTROMETHORPHAN/QUINIDINE 20/10MG CAPSULE. PO SCH ×2 (09:21→20:23)
[2019-05-09] MEDS: levETIRAcetam 500 MG TABLET PO SCH ×2 (09:21→20:23)
[2019-05-09] MEDS: GABAPENTIN 300 MG CAPSULE. PO SCH ×3 (09:21→20:22)
[2019-05-09] MEDS: QUEtiapine 50 MG TABLET. PO SCH ×3 (09:21→17:21)
[2019-05-09] MEDS: DIVALPROEX SODIUM 250 MG TABLET.DR. PO SCH ×3 (09:21→20:23)
[2019-05-09] MEDS: CHOLECALCIFEROL (VITAMIN D3) 1,000 UNIT TABLET PO SCH (09:21)
[2019-05-09] MEDS: BENZTROPINE MESYLATE 0.5 MG TABLET PO SCH ×2 (09:21→20:23)
[2019-05-09] MEDS: risperiDONE 0.25 MG TABLET. PO SCH ×2 (09:21→17:21)
[2019-05-09] MEDS: hydrOXYzine HCL 25 MG TABLET PO SCH ×3 (09:21→20:23)
[2019-05-09] MEDS: LACTOBACILLUS RHAMNOSUS GG 1 CAPSULE. PO SCH ×2 (09:21→20:23)
[2019-05-09] MEDS: DICLOFENAC SODIUM 1% TOPICAL GEL 100GM TUBE. TP SCH ×3 (09:22→21:00)
[2019-05-09] MEDS: traMADol 50 MG TABLET PO SCH ×2 (09:22→20:23)
[2019-05-09] MEDS: SERTRALINE 25 MG TABLET. PO SCH (09:22)
[2019-05-09 15:51] VITALS: BP 107/72
[2019-05-09] MEDS: MELATONIN 3 MG TABLET PO SCH (20:22)
[2019-05-09] MEDS: MIRTAZAPINE 7.5 MG TABLET. PO SCH (20:23)
--- NOTE | 2019-05-09 21:45 | PDOC ---
Exam Note: Cb Note: Please also refer to the separate dictated note~for this date of service dictated separately.~Patient seen individually. Discussed the patient with Nursing staff reviewed the chart.~Reviewed interim history and current functioning. Reviewed vital signs,~Labs/ Radiology~and current medications noted below. Continue current treatment with the changes noted in the dictated addendum note Assessment: Vital Signs/I&O: Vital Signs Date Time Temp Pulse Resp B/P (MAP) Pulse Ox O2 Delivery O2 Flow Rate FiO2 05/09/19 20:23 96 05/09/19 15:51 97.4 72 18 107/72 (84) 05/09/19 05:57 Room Air I & O 05/08/19 05/08/19 05/09/19 15:00 23:00 07:00 Intake Total 720 ml 660 ml 240 ml Balance 720 ml 660 ml 240 ml Current Medications: Meds: Current Medications Medications (Trade) Dose Ordered Sig/Malika Route PRN Reason Start Time Stop Time Status Last Admin Dose Admin Sertraline HCl (Zoloft) 75 mg DAILY PO 05/09/19 09:00 05/11/19 21:00 05/09/19 09:22 I have reviewed the current psychotropics carefully including drug interactions. Risk benefit ratio favors no change other than as noted in my dictated progress note. Diagnosis: Problems: (1) MDD (major depressive disorder) (2) Anxiety disorder (3) Major depressive disorder, recurrent episode (4) Impulse control disorder (5) Major neurocognitive disorder, due to vascular disease, with behavioral disturbance, mild NEELAM,NORBERTO Marquez MD May 09, 2019 21:45
--- NOTE | 2019-05-09 23:05 | PN ---
DATE: 05/08/2019 PSYCHIATRIC PROGRESS NOTE This late entry 05/08/2019 covers the elements not covered in my initial note. SUBJECTIVE: I met with the patient in the evening of 05/08/2019. Per LITO Garcia, the patient has been compliant with her medications, pleasant, still somewhat depressed, but denies suicidal ideation. She slept 5-3/4 hours previous night. REVIEW OF SYSTEMS: Impaired ambulation, in Broda chair. No CV, , pulmonary, eye system symptoms on review. MENTAL STATUS EXAM: Oriented to herself and situation. Speech is coherent, has some latency, low in volume. Abstraction fair, computation impaired, language function intact, attention span short. Mood and affect is still depressed, anxious. No active suicidal ideation, addressed at length with her. LABORATORY DATA: Reviewed. IMPRESSION: Major depressive disorder with psychotic features in partial remission; seizure disorder; bipolar disorder, unspecified. PLAN: Continue current psychotropics. After she has been on Zoloft 75 mg a day for 3 days, we will increase to 100 mg a day. Rest unchanged for now. MAN Sen RICHTER MD DR: ROCCO/nora JOB#: [id number] / [id number]
[2019-05-10] MEDS: LEVOTHYROXINE 50 MCG TABLET PO SCH (06:01)
[2019-05-10 06:15] VITALS: BP 99/61
[2019-05-10] MEDS: LACTOBACILLUS RHAMNOSUS GG 1 CAPSULE. PO SCH ×2 (08:51→22:35)
[2019-05-10] MEDS: DEXTROMETHORPHAN/QUINIDINE 20/10MG CAPSULE. PO SCH ×2 (08:51→21:00)
[2019-05-10] MEDS: QUEtiapine 50 MG TABLET. PO SCH ×3 (08:51→17:14)
[2019-05-10] MEDS: risperiDONE 0.25 MG TABLET. PO SCH ×2 (08:51→17:14)
[2019-05-10] MEDS: DIVALPROEX SODIUM 250 MG TABLET.DR. PO SCH ×3 (08:51→22:35)
[2019-05-10] MEDS: OMEGA-3 FATTY ACIDS/FISH OIL 1,000 MG CAPSULE. PO SCH (08:51)
[2019-05-10] MEDS: GABAPENTIN 300 MG CAPSULE. PO SCH ×3 (08:52→22:35)
[2019-05-10] MEDS: FUROSEMIDE 20 MG TABLET PO SCH (08:52)
[2019-05-10] MEDS: levETIRAcetam 500 MG TABLET PO SCH ×2 (08:52→22:35)
[2019-05-10] MEDS: BENZTROPINE MESYLATE 0.5 MG TABLET PO SCH ×2 (08:52→22:36)
[2019-05-10] MEDS: traMADol 50 MG TABLET PO SCH ×3 (08:52→22:37)
[2019-05-10] MEDS: hydrOXYzine HCL 25 MG TABLET PO SCH ×3 (08:52→22:35)
[2019-05-10] MEDS: SERTRALINE 25 MG TABLET. PO SCH (08:52)
[2019-05-10] MEDS: CHOLECALCIFEROL (VITAMIN D3) 1,000 UNIT TABLET PO SCH (08:53)
[2019-05-10] MEDS: lamoTRIgine 100 MG TABLET. PO SCH (08:53)
[2019-05-10] MEDS: DICLOFENAC SODIUM 1% TOPICAL GEL 100GM TUBE. TP SCH ×3 (08:54→22:37)
[2019-05-10 16:14] VITALS: BP 98/62
[2019-05-10] MEDS ORDERED: TROLAMINE SALICYLATE 10% TOPICAL CREAM 85GM JAR. TP PRN (16:16)
--- NOTE | 2019-05-10 21:22 | PDOC ---
Exam Note: Cb Note: Please also refer to the separate dictated note~for this date of service dictated separately.~Patient seen individually. Discussed the patient with Nursing staff reviewed the chart.~Reviewed interim history and current functioning. Reviewed vital signs,~Labs/ Radiology~and current medications noted below. Continue current treatment with the changes noted in the dictated addendum note Assessment: Vital Signs/I&O: Vital Signs Date Time Temp Pulse Resp B/P (MAP) Pulse Ox O2 Delivery O2 Flow Rate FiO2 05/10/19 16:14 97.2 96 19 98/62 (74) 98 Room Air I & O 05/09/19 05/09/19 05/10/19 14:59 22:59 06:59 Intake Total 840 ml 360 ml 240 ml Balance 840 ml 360 ml 240 ml Current Medications: I have reviewed the current psychotropics carefully including drug interactions. Risk benefit ratio favors no change other than as noted in my dictated progress note. Diagnosis: Problems: (1) MDD (major depressive disorder) (2) Anxiety disorder (3) Major depressive disorder, recurrent episode (4) Impulse control disorder (5) Major neurocognitive disorder, due to vascular disease, with behavioral disturbance, mild NORBERTO RICHTER MD May 10, 2019 21:22
[2019-05-10] MEDS: MIRTAZAPINE 7.5 MG TABLET. PO SCH (22:35)
[2019-05-10] MEDS: MELATONIN 3 MG TABLET PO SCH (22:35)
--- NOTE | 2019-05-10 23:11 | PN ---
DATE: 05/09/2019 PSYCHIATRIC PROGRESS NOTE This late entry 05/09/2019 covers the elements not covered in my initial note. SUBJECTIVE: I met with the patient in the evening of 05/09/2019. Per LITO Garcia, the patient slept 6-1/2 hours previous night. She has done better during the day, irritable in the morning, then much improved. REVIEW OF SYSTEMS: Ambulation impaired, in Broda chair. No CV, , pulmonary, eye, ENT system symptoms on review. MENTAL STATUS EXAM: Oriented to herself, situations. Speech has some latency, coherent. Abstraction fair, computation impaired, language function intact, attention span short. Mood and affect is improved, smiling, interacting with me much better, less anxious. No suicidal ideation. LABORATORY DATA: Reviewed. IMPRESSION: Unchanged from initial note. PLAN: No change from initial note. MAN Sen RICHTER MD DR: ROCCO/nora JOB#: [id number] / [id number]
[2019-05-11] MEDS: IBUPROFEN 600 MG TABLET. PO PRN (01:28)
[2019-05-11] MEDS: LEVOTHYROXINE 50 MCG TABLET PO SCH (05:46)
[2019-05-11 06:20] VITALS: BP 112/71
[2019-05-11] MEDS: DICLOFENAC SODIUM 1% TOPICAL GEL 100GM TUBE. TP SCH ×3 (07:50→20:49)
[2019-05-11] MEDS: FUROSEMIDE 20 MG TABLET PO SCH (07:51)
[2019-05-11] MEDS: DIVALPROEX SODIUM 250 MG TABLET.DR. PO SCH ×3 (07:52→20:50)
[2019-05-11] MEDS: hydrOXYzine HCL 25 MG TABLET PO SCH ×3 (07:52→20:50)
[2019-05-11] MEDS: GABAPENTIN 300 MG CAPSULE. PO SCH ×3 (07:52→20:50)
[2019-05-11] MEDS: risperiDONE 0.25 MG TABLET. PO SCH ×2 (07:52→17:27)
[2019-05-11] MEDS: DEXTROMETHORPHAN/QUINIDINE 20/10MG CAPSULE. PO SCH ×2 (07:52→20:50)
[2019-05-11] MEDS: levETIRAcetam 500 MG TABLET PO SCH ×2 (07:52→20:50)
[2019-05-11] MEDS: BENZTROPINE MESYLATE 0.5 MG TABLET PO SCH ×2 (07:52→20:50)
[2019-05-11] MEDS: LACTOBACILLUS RHAMNOSUS GG 1 CAPSULE. PO SCH ×2 (07:52→20:50)
[2019-05-11] MEDS: lamoTRIgine 100 MG TABLET. PO SCH (07:53)
[2019-05-11] MEDS: SERTRALINE 25 MG TABLET. PO SCH (07:53)
[2019-05-11] MEDS: OMEGA-3 FATTY ACIDS/FISH OIL 1,000 MG CAPSULE. PO SCH (07:53)
[2019-05-11] MEDS: CHOLECALCIFEROL (VITAMIN D3) 1,000 UNIT TABLET PO SCH (07:53)
[2019-05-11] MEDS: traMADol 50 MG TABLET PO SCH ×2 (07:53→20:50)
[2019-05-11] MEDS: QUEtiapine 50 MG TABLET. PO SCH ×3 (07:53→17:27)
[2019-05-11 15:50] VITALS: BP 116/67
--- NOTE | 2019-05-11 18:15 | PN ---
DATE: 05/10/2019 PSYCHIATRIC PROGRESS NOTE This late entry 05/10/2019 covers elements not covered in my initial note. SUBJECTIVE: I met with the patient evening of 05/10/2019. Per LITO Garcia, the patient slept 6 hours previous night. The patient has been pleasant, more oriented, less labile. Denies suicidal ideation. REVIEW OF SYSTEMS: Ambulation impaired, in wheelchair. No CV, , pulmonary, eye system symptoms on review. Does complain of tremors. MENTAL STATUS EXAM: Oriented to herself and situation. Speech is coherent, has some latency. Abstraction fair, computation impaired, language function intact, attention span short. Mood and affect less labile, less depressed, slightly anxious, still does have some short-term memory deficits. LABORATORY DATA: Reviewed. IMPRESSION: Major depressive disorder with psychotic features, rule out bipolar disorder, mixed with history of psychotic features; seizure disorder; anxiety disorder, unspecified; status post urinary tract infection. PLAN: Continue her current psychotropics and treatment of UTI. Zoloft is being increased to 100 mg a day. Rest unchanged for now. Valproic acid level therapeutic at 52. MAN Sen RICHTER MD DR: ROCCO/nora JOB#: [id number] / [id number]
[2019-05-11] MEDS: MIRTAZAPINE 7.5 MG TABLET. PO SCH (20:50)
[2019-05-11] MEDS: MELATONIN 3 MG TABLET PO SCH (20:51)
--- NOTE | 2019-05-11 21:22 | PDOC ---
Exam Note: Cb Note: Please also refer to the separate dictated note~for this date of service dictated separately.~Patient seen individually. Discussed the patient with Nursing staff reviewed the chart.~Reviewed interim history and current functioning. Reviewed vital signs,~Labs/ Radiology~and current medications noted below. Continue current treatment with the changes noted in the dictated addendum note Assessment: Vital Signs/I&O: Vital Signs Date Time Temp Pulse Resp B/P (MAP) Pulse Ox O2 Delivery O2 Flow Rate FiO2 05/11/19 15:50 97.8 94 20 116/67 (83) 97 05/10/19 22:34 Room Air I & O 05/10/19 05/10/19 05/11/19 15:00 23:00 07:00 Intake Total 960 ml 480 ml Balance 960 ml 480 ml Current Medications: I have reviewed the current psychotropics carefully including drug interactions. Risk benefit ratio favors no change other than as noted in my dictated progress note. Diagnosis: Problems: (1) MDD (major depressive disorder) (2) Anxiety disorder (3) Major depressive disorder, recurrent episode (4) Impulse control disorder (5) Major neurocognitive disorder, due to vascular disease, with behavioral disturbance, mild NORBERTO RICHTER MD May 11, 2019 21:22
[2019-05-12 05:52] VITALS: BP 100/58
[2019-05-12] MEDS: LEVOTHYROXINE 50 MCG TABLET PO SCH (06:24)
[2019-05-12] MEDS: QUEtiapine 50 MG TABLET. PO SCH ×3 (09:06→17:05)
[2019-05-12] MEDS: FUROSEMIDE 20 MG TABLET PO SCH (09:06)
[2019-05-12] MEDS: GABAPENTIN 300 MG CAPSULE. PO SCH ×3 (09:06→20:58)
[2019-05-12] MEDS: DEXTROMETHORPHAN/QUINIDINE 20/10MG CAPSULE. PO SCH ×2 (09:06→20:56)
[2019-05-12] MEDS: lamoTRIgine 100 MG TABLET. PO SCH (09:06)
[2019-05-12] MEDS: LACTOBACILLUS RHAMNOSUS GG 1 CAPSULE. PO SCH ×2 (09:06→20:57)
[2019-05-12] MEDS: hydrOXYzine HCL 25 MG TABLET PO SCH ×3 (09:07→20:58)
[2019-05-12] MEDS: CHOLECALCIFEROL (VITAMIN D3) 1,000 UNIT TABLET PO SCH (09:07)
[2019-05-12] MEDS: SERTRALINE 100 MG TABLET. PO SCH (09:07)
[2019-05-12] MEDS: DIVALPROEX SODIUM 250 MG TABLET.DR. PO SCH ×3 (09:07→21:00)
[2019-05-12] MEDS: BENZTROPINE MESYLATE 0.5 MG TABLET PO SCH ×2 (09:07→20:57)
[2019-05-12] MEDS: levETIRAcetam 500 MG TABLET PO SCH ×2 (09:07→20:57)
[2019-05-12] MEDS: OMEGA-3 FATTY ACIDS/FISH OIL 1,000 MG CAPSULE. PO SCH (09:07)
[2019-05-12] MEDS: traMADol 50 MG TABLET PO SCH ×2 (09:07→20:58)
[2019-05-12] MEDS: risperiDONE 0.25 MG TABLET. PO SCH ×2 (09:07→17:05)
[2019-05-12] MEDS: DICLOFENAC SODIUM 1% TOPICAL GEL 100GM TUBE. TP SCH ×3 (09:08→20:59)
[2019-05-12] MEDS: IBUPROFEN 600 MG TABLET. PO PRN (09:14)
[2019-05-12] MEDS: LORazepam 0.5 MG TABLET PO PRN ×2 (09:14→21:17)
[2019-05-12 16:03] VITALS: BP 104/66
[2019-05-12] MEDS: MIRTAZAPINE 7.5 MG TABLET. PO SCH (20:57)
[2019-05-12] MEDS: MELATONIN 3 MG TABLET PO SCH (20:57)
--- NOTE | 2019-05-12 22:03 | PDOC ---
Exam Note: Cb Note: Please also refer to the separate dictated note~for this date of service dictated separately.~Patient seen individually. Discussed the patient with Nursing staff reviewed the chart.~Reviewed interim history and current functioning. Reviewed vital signs,~Labs/ Radiology~and current medications noted below. Continue current treatment with the changes noted in the dictated addendum note Assessment: Vital Signs/I&O: Vital Signs Date Time Temp Pulse Resp B/P (MAP) Pulse Ox O2 Delivery O2 Flow Rate FiO2 05/12/19 16:03 97.0 91 20 104/66 (79) 98 05/10/19 22:34 Room Air I & O 05/11/19 05/11/19 05/12/19 15:00 23:00 07:00 Intake Total 800 ml 240 ml 420 ml Balance 800 ml 240 ml 420 ml Current Medications: Meds: Current Medications Medications (Trade) Dose Ordered Sig/Malika Route PRN Reason Start Time Stop Time Status Last Admin Dose Admin Sertraline HCl (Zoloft) 100 mg DAILY PO 05/12/19 09:00 05/12/19 09:07 I have reviewed the current psychotropics carefully including drug interactions. Risk benefit ratio favors no change other than as noted in my dictated progress note. Diagnosis: Problems: (1) Encounter for medical screening examination (2) MDD (major depressive disorder) (3) Anxiety disorder (4) Major depressive disorder, recurrent episode (5) Impulse control disorder (6) Major neurocognitive disorder, due to vascular disease, with behavioral disturbance, mild NORBERTO RICHTER MD May 12, 2019 22:03
[2019-05-13] MEDS: LEVOTHYROXINE 50 MCG TABLET PO SCH (05:54)
[2019-05-13 06:29] VITALS: BP 114/77
[2019-05-13] MEDS: OMEGA-3 FATTY ACIDS/FISH OIL 1,000 MG CAPSULE. PO SCH (08:21)
[2019-05-13] MEDS: DIVALPROEX SODIUM 250 MG TABLET.DR. PO SCH ×3 (08:22→20:54)
[2019-05-13] MEDS: hydrOXYzine HCL 25 MG TABLET PO SCH ×3 (08:22→20:54)
[2019-05-13] MEDS: SERTRALINE 100 MG TABLET. PO SCH (08:22)
[2019-05-13] MEDS: QUEtiapine 50 MG TABLET. PO SCH ×3 (08:22→17:05)
[2019-05-13] MEDS: risperiDONE 0.25 MG TABLET. PO SCH ×2 (08:22→17:05)
[2019-05-13] MEDS: CHOLECALCIFEROL (VITAMIN D3) 1,000 UNIT TABLET PO SCH (08:22)
[2019-05-13] MEDS: LACTOBACILLUS RHAMNOSUS GG 1 CAPSULE. PO SCH ×2 (08:22→20:54)
[2019-05-13] MEDS: lamoTRIgine 100 MG TABLET. PO SCH (08:22)
[2019-05-13] MEDS: FUROSEMIDE 20 MG TABLET PO SCH (08:23)
[2019-05-13] MEDS: GABAPENTIN 300 MG CAPSULE. PO SCH ×3 (08:23→20:52)
[2019-05-13] MEDS: DICLOFENAC SODIUM 1% TOPICAL GEL 100GM TUBE. TP SCH ×3 (08:23→20:56)
[2019-05-13] MEDS: DEXTROMETHORPHAN/QUINIDINE 20/10MG CAPSULE. PO SCH ×2 (08:23→20:53)
[2019-05-13] MEDS: BENZTROPINE MESYLATE 0.5 MG TABLET PO SCH ×2 (08:23→20:54)
[2019-05-13] MEDS: levETIRAcetam 500 MG TABLET PO SCH ×2 (08:23→20:54)
[2019-05-13] MEDS: traMADol 50 MG TABLET PO SCH ×2 (08:23→20:53)
[2019-05-13] MEDS: LORazepam 0.5 MG TABLET PO PRN (13:23)
[2019-05-13 16:00] VITALS: BP 109/61
[2019-05-13] MEDS: ACETAMINOPHEN 500 MG TABLET PO PRN (17:18)
[2019-05-13] MEDS: MELATONIN 3 MG TABLET PO SCH (20:52)
[2019-05-13] MEDS: MIRTAZAPINE 7.5 MG TABLET. PO SCH (20:52)
--- NOTE | 2019-05-13 21:18 | PN ---
DATE: 05/11/2019 PSYCHIATRIC PROGRESS NOTE This late entry 05/11/2019 covers elements not covered in my initial note. SUBJECTIVE: I met with the patient evening of 05/11/2019 and staffed at a treatment team meeting with the entire team earlier in the day. Appetite is 50%, sleeping average 6 hours, slept 3-1/4 hours previous night, compliant with medications. Ambulation impaired, in wheelchair. No CV, , pulmonary, eye, ENT system symptoms on review. Mood lability is improved. Denies suicidal ideation. He has been accepted at [facility] on Tuesday. REVIEW OF SYSTEMS: Ambulation impaired, in wheelchair. No CV, , pulmonary, eye system symptoms on review. MENTAL STATUS EXAM: Oriented to herself and situation. Speech has some latency, coherent. Abstraction fair, computation impaired, language function intact. Mood and affect, lability is improved. LABORATORY DATA: Reviewed. IMPRESSION: Unchanged from initial note. PLAN: No change from initial note. NORBERTO RICHTER MD DR: ROCCO/nora JOB#: [id number] / [id number]
--- NOTE | 2019-05-13 21:19 | PN ---
DATE: 05/12/2019 PSYCHIATRIC PROGRESS NOTE. This late entry of 05/12/2019 covers the elements not covered in my initial note. SUBJECTIVE: I met with the patient in the evening. The patient slept 5-1/2 hours previous night. She has done better confused at breakfast time, wanting to call her mother. REVIEW OF SYSTEMS: Ambulation impaired, in wheelchair. No CV, , pulmonary, eye system symptoms on review. MENTAL STATUS EXAM: Oriented to herself and situation. Speech has some latency, coherent. Abstraction fair, computation impaired, language function intact, attention span short. Mood and affect, lability is improved. LABORATORY DATA: Reviewed. IMPRESSION: Unchanged from initial note. PLAN: No change from initial note. MAN Sen RICHTER MD DR: ROCCO/nora JOB#: [id number] / [id number]
--- NOTE | 2019-05-13 21:42 | PDOC ---
Exam Note: Cb Note: Please also refer to the separate dictated note~for this date of service dictated separately.~Patient seen individually. Discussed the patient with Nursing staff reviewed the chart.~Reviewed interim history and current functioning. Reviewed vital signs,~Labs/ Radiology~and current medications noted below. Continue current treatment with the changes noted in the dictated addendum note Assessment: Vital Signs/I&O: Vital Signs Date Time Temp Pulse Resp B/P (MAP) Pulse Ox O2 Delivery O2 Flow Rate FiO2 05/13/19 20:53 20 Room Air 05/13/19 16:00 97.6 94 109/61 (77) 90 I & O 05/12/19 05/12/19 05/13/19 15:00 23:00 07:00 Intake Total 600 ml 600 ml Balance 600 ml 600 ml Current Medications: I have reviewed the current psychotropics carefully including drug interactions. Risk benefit ratio favors no change other than as noted in my dictated progress note. Diagnosis: Problems: (1) MDD (major depressive disorder) (2) Anxiety disorder (3) Major depressive disorder, recurrent episode (4) Impulse control disorder (5) Major neurocognitive disorder, due to vascular disease, with behavioral disturbance, mild NORBERTO RICHTER MD May 13, 2019 21:42
[2019-05-14] MEDS ORDERED: METH28OI2 TP (02:16)
[2019-05-14] MEDS ORDERED: MIRT7.5T8 PO (02:18)
[2019-05-14] MEDS ORDERED: SERT100T PO (02:19)
[2019-05-14] MEDS ORDERED: OLAN5TAB5 PO (02:19)
[2019-05-14] MEDS ORDERED: QUET50TA5 PO (02:21)
[2019-05-14] MEDS ORDERED: RISP0.5T3 PO (02:21)
[2019-05-14] MEDS ORDERED: MAGN400O7 PO (02:23)
[2019-05-14] MEDS ORDERED: MAG30ORA2 PO (02:23)
[2019-05-14] MEDS ORDERED: LACT1CAP21 PO (02:24)
[2019-05-14 05:46] VITALS: BP 120/79
[2019-05-14] MEDS: CHOLECALCIFEROL (VITAMIN D3) 1,000 UNIT TABLET PO SCH (08:29)
[2019-05-14] MEDS: levETIRAcetam 500 MG TABLET PO SCH ×2 (08:29→20:35)
[2019-05-14] MEDS: LACTOBACILLUS RHAMNOSUS GG 1 CAPSULE. PO SCH ×2 (08:30→20:35)
[2019-05-14] MEDS: DEXTROMETHORPHAN/QUINIDINE 20/10MG CAPSULE. PO SCH ×2 (08:30→20:36)
[2019-05-14] MEDS: FUROSEMIDE 20 MG TABLET PO SCH (08:30)
[2019-05-14] MEDS: hydrOXYzine HCL 25 MG TABLET PO SCH ×3 (08:30→20:35)
[2019-05-14] MEDS: lamoTRIgine 100 MG TABLET. PO SCH (08:30)
[2019-05-14] MEDS: DIVALPROEX SODIUM 250 MG TABLET.DR. PO SCH ×3 (08:30→20:35)
[2019-05-14] MEDS: BENZTROPINE MESYLATE 0.5 MG TABLET PO SCH ×2 (08:30→20:35)
[2019-05-14] MEDS: risperiDONE 0.25 MG TABLET. PO SCH ×2 (08:30→17:33)
[2019-05-14] MEDS: LEVOTHYROXINE 50 MCG TABLET PO SCH (08:31)
[2019-05-14] MEDS: OMEGA-3 FATTY ACIDS/FISH OIL 1,000 MG CAPSULE. PO SCH (08:31)
[2019-05-14] MEDS: QUEtiapine 50 MG TABLET. PO SCH ×3 (08:31→17:33)
[2019-05-14] MEDS: SERTRALINE 100 MG TABLET. PO SCH (08:31)
[2019-05-14] MEDS: GABAPENTIN 300 MG CAPSULE. PO SCH ×3 (08:32→20:35)
[2019-05-14] MEDS: traMADol 50 MG TABLET PO SCH ×2 (08:33→20:35)
[2019-05-14] MEDS: DICLOFENAC SODIUM 1% TOPICAL GEL 100GM TUBE. TP SCH ×3 (08:33→20:36)
[2019-05-14 16:08] VITALS: BP 96/65
[2019-05-14] MEDS: BACLOFEN 10 MG TABLET PO PRN (16:30)
[2019-05-14] MEDS: MELATONIN 3 MG TABLET PO SCH (20:36)
[2019-05-14] MEDS: MIRTAZAPINE 7.5 MG TABLET. PO SCH (20:36)
--- NOTE | 2019-05-14 21:24 | PDOC ---
Exam Note: Cb Note: Please also refer to the separate dictated note~for this date of service dictated separately.~Patient seen individually. Discussed the patient with Nursing staff reviewed the chart.~Reviewed interim history and current functioning. Reviewed vital signs,~Labs/ Radiology~and current medications noted below. Continue current treatment with the changes noted in the dictated addendum note Assessment: Vital Signs/I&O: Vital Signs Date Time Temp Pulse Resp B/P (MAP) Pulse Ox O2 Delivery O2 Flow Rate FiO2 05/14/19 20:35 18 Room Air 05/14/19 16:08 97.1 89 96/65 (75) 97 I & O 05/13/19 05/13/19 05/14/19 15:00 23:00 07:00 Intake Total 480 ml 480 ml 240 ml Balance 480 ml 480 ml 240 ml Current Medications: I have reviewed the current psychotropics carefully including drug interactions. Risk benefit ratio favors no change other than as noted in my dictated progress note. Diagnosis: Problems: (1) Encounter for medical screening examination (2) MDD (major depressive disorder) (3) Anxiety disorder (4) Major depressive disorder, recurrent episode (5) Impulse control disorder (6) Major neurocognitive disorder, due to vascular disease, with behavioral disturbance, mild NORBERTO RICHTER MD May 14, 2019 21:24
--- NOTE | 2019-05-14 23:51 | PN ---
DATE: 05/13/2019 PSYCHIATRIC PROGRESS NOTE This late entry, 05/13, covers the elements not covered in my initial note. SUBJECTIVE: I met with the patient on the evening of 05/13. Per LITO Haas, the patient slept 6-1/2 hours previous night. She has had a bad night, somewhat focused on the TV that someone has stolen her remote, trying to stand out of wheelchair, fall risk, resistive, but redirected later. REVIEW OF SYSTEMS: Ambulation impaired, in wheelchair. No CV, , pulmonary, eye systems symptoms on review. MENTAL STATUS EXAM: Oriented to herself and situation, more coherent. Abstraction fair, computation impaired, language function intact, attention span short. Mood and affect somewhat anxious, labile. LABORATORY DATA: Reviewed. IMPRESSION: Unchanged from initial note. PLAN: No change from initial note. MAN Sen RICHTER MD DR: ROCCO/nora JOB#: [id number] / [id number]
[2019-05-15 05:53] VITALS: BP 104/67
[2019-05-15] MEDS: IBUPROFEN 600 MG TABLET. PO PRN (06:03)
[2019-05-15] MEDS: LEVOTHYROXINE 50 MCG TABLET PO SCH (06:03)
[2019-05-15] MEDS: SERTRALINE 100 MG TABLET. PO SCH (08:56)
[2019-05-15] MEDS: lamoTRIgine 100 MG TABLET. PO SCH (08:56)
[2019-05-15] MEDS: OMEGA-3 FATTY ACIDS/FISH OIL 1,000 MG CAPSULE. PO SCH (08:56)
[2019-05-15] MEDS: BENZTROPINE MESYLATE 0.5 MG TABLET PO SCH (08:56)
[2019-05-15] MEDS: hydrOXYzine HCL 25 MG TABLET PO SCH ×2 (08:56→12:40)
[2019-05-15] MEDS: risperiDONE 0.25 MG TABLET. PO SCH (08:56)
[2019-05-15] MEDS: DIVALPROEX SODIUM 250 MG TABLET.DR. PO SCH ×2 (08:56→12:40)
[2019-05-15] MEDS: CHOLECALCIFEROL (VITAMIN D3) 1,000 UNIT TABLET PO SCH (08:56)
[2019-05-15] MEDS: QUEtiapine 50 MG TABLET. PO SCH ×2 (08:56→12:40)
[2019-05-15] MEDS: FUROSEMIDE 20 MG TABLET PO SCH (08:56)
[2019-05-15] MEDS: LACTOBACILLUS RHAMNOSUS GG 1 CAPSULE. PO SCH (08:57)
[2019-05-15] MEDS: DEXTROMETHORPHAN/QUINIDINE 20/10MG CAPSULE. PO SCH (08:57)
[2019-05-15] MEDS: GABAPENTIN 300 MG CAPSULE. PO SCH ×2 (08:57→12:40)
[2019-05-15] MEDS: levETIRAcetam 500 MG TABLET PO SCH (08:57)
[2019-05-15] MEDS: DICLOFENAC SODIUM 1% TOPICAL GEL 100GM TUBE. TP SCH ×2 (08:57→12:41)
[2019-05-15] MEDS: traMADol 50 MG TABLET PO SCH (09:04)
[2019-05-15] MEDS: ACETAMINOPHEN 500 MG TABLET PO PRN (10:08)
--- NOTE | 2019-05-15 19:46 | PN ---
DATE: 05/14/2019 PSYCHIATRIC PROGRESS NOTE This late entry 05/14/2019 covers elements not covered in my initial note. SUBJECTIVE: I met with the patient evening of 05/14/2019. Per LITO Alarcon, the patient slept 7 hours previous night. She is compliant with her medications. Previous evening, she was accusing staff of stealing the remote control from her. She was anxious, agitated, then had a telephone call with her aunt and then did better. REVIEW OF SYSTEMS: Ambulation impaired, in wheelchair. No CV, , pulmonary, eye, ENT system symptoms on review. MENTAL STATUS EXAM: Oriented to herself and situation. Speech has some latency, coherent. Abstraction fair, computation impaired, language function intact, attention span short. Mood and affect somewhat withdrawn, anxious, but better than before. LABORATORY DATA: Reviewed. IMPRESSION: Unchanged from initial note. PLAN: No change from initial note. NORBERTO RICHTER MD DR: ROCCO/nora JOB#: [id number] / [id number]
--- NOTE | 2019-05-15 21:31 | PDOC ---
Exam Note: Cb Note: Please also refer to the separate dictated note~for this date of service dictated separately.~Patient seen individually. Discussed the patient with Nursing staff reviewed the chart.~Reviewed interim history and current functioning. Reviewed vital signs,~Labs/ Radiology~and current medications noted below. Continue current treatment with the changes noted in the dictated addendum note Assessment: Vital Signs/I&O: Vital Signs Date Time Temp Pulse Resp B/P (MAP) Pulse Ox O2 Delivery O2 Flow Rate FiO2 05/15/19 05:53 97.7 75 18 104/67 (79) 96 05/14/19 21:35 Room Air I & O 05/14/19 05/14/19 05/15/19 15:00 23:00 07:00 Intake Total 1080 ml 480 ml 120 ml Balance 1080 ml 480 ml 120 ml Current Medications: I have reviewed the current psychotropics carefully including drug interactions. Risk benefit ratio favors no change other than as noted in my dictated progress note. Diagnosis: Problems: (1) MDD (major depressive disorder) (2) Anxiety disorder (3) Major depressive disorder, recurrent episode (4) Impulse control disorder (5) Major neurocognitive disorder, due to vascular disease, with behavioral disturbance, mild NORBERTO RICHTER MD May 15, 2019 21:31
--- NOTE | 2019-05-16 15:56 | DS ---
DATE OF DISCHARGE: 05/15/2019 DISCHARGE SUMMARY/PSYCHIATRIC PROGRESS NOTE This late entry 05/15/2019 covers elements not covered in my initial note. REASON FOR ADMISSION: Please refer to the admission history for details. Briefly, the patient is a 58-year-old female referred to us from [facility] by her primary care physician on account of yelling out, striking out at peers and staff with worsening anxiety, agitation, irritability. She was having suicidal ideation, looking for pets and people, actively hallucinating, restless, constantly moving her wheelchair and was additionally a fall risk. She had failed outpatient psychiatric interventions for her diagnosis of major depressive disorder with psychotic features and possibility of bipolar disorder within the context of her seizure disorder. SIGNIFICANT FINDINGS AND CLINICAL COURSE: Following admission, the patient was seen daily individually by myself from a psychiatric standpoint, medical followup with Dr. Arango. The patient did have a UTI and this was treated. She was extremely agitated, labile, hallucinating with significant insomnia. Adjustments were made in her psychotropics and she seemed to respond to a combination of Remeron 7.5 mg at bedtime, Depakote ER 250 mg t.i.d. with a level therapeutic at 52. She is also on Cogentin 0.5 mg t.i.d., Zoloft 75 mg a day, gabapentin 300 mg t.i.d., hydroxyzine 25 mg t.i.d., Keppra 500 b.i.d., lamotrigine 200 mg daily, melatonin 9 mg at bedtime, Nuedexta 20/10 mg b.i.d., Seroquel 50 mg t.i.d., Zyprexa p.r.n., Risperdal 0.25 mg b.i.d. Gradually, psychotic symptoms improved. Her mood lability, mood vacillations improved and it was felt in addition to major depressive disorder, she probably had a diagnosis of bipolar disorder, unspecified. REVIEW OF SYSTEMS: Prior to discharge on 05/15/2019, ambulation impaired, in wheelchair. No CV, , pulmonary, eye, ENT system symptoms on review. MENTAL STATUS EXAM: Oriented to herself and situation. Speech has some latency, coherent. Abstraction fair, computation impaired, language function intact. Attention span improved. Mood and affect was improved. No suicidal or homicidal ideation at discharge. CONDITION AT DISCHARGE: Improved. FINAL DIAGNOSES: Major depressive disorder with psychotic features in partial remission; probable bipolar 1 disorder, mixed with psychotic features, in partial remission; mild cognitive impairment; status post urinary tract infection; seizure disorder; anxiety disorder, unspecified; status post cerebrovascular accident; hypothyroidism; Parkinson's disease; pseudobulbar affect; migraines; hypertension; gastroesophageal reflux disease. DISCHARGE MEDICATIONS: Please refer to the MRAD. DISCHARGE INSTRUCTIONS: Outpatient psychiatric and medical followup at the [facility]. Time for discharge day management greater than 30 minutes. MAN Sen RICHTER MD DR: ROCCO/nora JOB#: [id number] / [id number]
--- NOTE | 2019-05-16 18:41 | DS ---
DATE OF DISCHARGE: 05/15/2019 HOSPITAL COURSE: At the time of discharge, the patient was on 2 routine antipsychotics, Risperdal and Seroquel. She had failed treatment on Seroquel as a single antipsychotic and therefore Risperdal was added for her significant psychosis, delusions that were markedly interfering with her functioning. She did stabilize with that addition and the resolution of her UTI. I would suggest that starting in 30 days from discharge if she is still stable, the Seroquel can be reduced by 25 mg a day every 2 weeks until it is discontinued while maintaining the Risperdal as an antipsychotic. That would bring it down to just one atypical antipsychotic and avoid the combination of two atypicals being used. This note is a clarification for this plan as part of her discharge summary. NORBERTO RICHTER MD DR: ROCCO/nora JOB#: [id number] / [id number]
== END 2019-05-15 13:00 | DRG 885 ==
LOC: ER 14:14 → GEROPSY 17:41
PROVIDERS: ADMIT Psychiatry & Neurology Psychiatry; ATTEND Psychiatry & Neurology Psychiatry
DX: F31.64 Bipolar disorder, current episode mixed, severe, with psychotic features (principal); F01.51 Vascular dementia, unspecified severity, with behavioral disturbance; G81.94 Hemiplegia, unspecified affecting left nondominant side; R45.851 Suicidal ideations; N39.0 Urinary tract infection, site not specified; F02.81 Dementia in other diseases classified elsewhere, unspecified severity, with behavioral disturbance; I25.10 Atherosclerotic heart disease of native coronary artery without angina pectoris; E03.9 Hypothyroidism, unspecified; F41.1 Generalized anxiety disorder; G40.909 Epilepsy, unspecified, not intractable, without status epilepticus; F63.9 Impulse disorder, unspecified; G30.9 Alzheimer's disease, unspecified; G47.00 Insomnia, unspecified; K21.9 Gastro-esophageal reflux disease without esophagitis; I10 Essential (primary) hypertension; Z66 Do not resuscitate; G20 Parkinson's disease; G43.909 Migraine, unspecified, not intractable, without status migrainosus; G47.33 Obstructive sleep apnea (adult) (pediatric); Z88.8 Allergy status to other drugs, medicaments and biological substances; Z88.5 Allergy status to narcotic agent; Z86.73 Personal history of transient ischemic attack (TIA), and cerebral infarction without residual deficits; Z79.899 Other long term (current) drug therapy; Z91.81 History of falling
CPT/HCPCS: 36415; 70450; 80053; 80061; 80164; 81001; 82306; 82607; 83036; 83540; 83550; 83735; 84436; 84443; 84480; 85025; 86592; 87086; 87186; 93005; Q0162; 99285-25